=== PATIENT | male | born 1950 | race Caucasian/White ===

== ENCOUNTER 2017-11-29 10:59 | Observation (INO) | payer MEDICARE, OTHER, SELFPAY ==
[2017-11-29] VITALS (14 sets, daily range): BP systolic 125–180; BP diastolic 59–83; PULSE 56–89; RESP 14–16; TEMP 36.4–37.1; O2SAT 94–97; BMI 33.3; BMI 32.8
--- NOTE | 2017-11-29 11:24 | EKG12_ITS ---
Test Reason : CP Blood Pressure : / mmHG Vent. Rate : 075 BPM Atrial Rate : 075 BPM P-R Int : 166 ms QRS Dur : 128 ms QT Int : 382 ms P-R-T Axes : 033 -37 108 degrees QTc Int : 426 ms Normal sinus rhythm Left axis deviation Left ventricular hypertrophy with QRS widening and repolarization abnormality Abnormal ECG Confirmed by KRISTIE ALVAREZ ([id number]), design editor LIZBETH MAX ([id number]) on 12/04/2017 10:15:55 AM Referred By: Joselo Sierra Confirmed By:KRISTIE ALVAREZ
--- NOTE | 2017-11-29 11:24 | RAD_ITS ---
STUDY: X-RAY CHEST REASON FOR EXAM: Male, 67 years old. Chest pain. TECHNIQUE: Single AP portable view of the chest. COMPARISON: None. FINDINGS: The lungs are clear and expanded. Scattered calcified granulomas. There is no demonstrated pleural abnormality. There is moderate cardiac enlargement. Normal mediastinum and dafne. Normal visualized pulmonary arteries. There is atherosclerotic tortuosity of the aortic arch and descending thoracic aorta. Normal visualized thoracic spine. Normal visualized ribs, clavicles, and shoulders. There is no demonstrated abnormality of the visualized soft tissue structures of the upper abdomen. RAD/Chest 1 View (Portable) IMPRESSION: Cardiomegaly. Electronically Signed: Krishna Taylor MD at 12:02 EST Tel [phone], Service support ,
[2017-11-29] MEDS: Aspirin 81 MG TAB.CHEW 324 MG PO (11:39)
[2017-11-29] MEDS: 0.9% Normal Saline 1,000 ML 150 ML IV (11:42)
[2017-11-29 11:50] LABS: Absolute Neutrophil Count 3.6 X10^3/uL (2.0-7.7); Basophil# 0.04 X10^3/uL; Basophil% 0.7 % (0-1); Eosinophil# 0.21 X10^3/uL; Eosinophils% 3.5 % (0-5); Hematocrit 45.9 % (40-54); Hemoglobin 15.7 g/dl (13.0-16.5); Lymphocyte % 26.4 % (19-41); Mean Corp Hgb Conc 34.2 g/gl (32-36); Mean Corpuscular Hgb 33.7 pg (27.0-32.0); Mean Corpuscular Volume 98.5 fL (80-94); Mean Platelet Vol. 9.7 fl (6.2-12.0); Monocyte# 0.62 X10^3/uL; Monocyte% 10.2 % (0-10); Neutrophil # 3.57 X10^3/uL (2.7-7.7); POSITIVE COUNT NO; POSITIVE DIFFERENTIAL NO; POSITIVE MORPHOLOGY NO; Platelet Count 237 K/mm3 (150-450); RBC Distribution Width CV 12.9 % (11.6-14.6); RBC Distribution Width SD 45.8 fl (35.1-43.9); Red Blood Count 4.66 M/mm3 (4.6-6.2); White Blood Count 6.1 K/mm3 (4.4-11.0)
[2017-11-29 12:03] LABS: Anion Gap 9 (5-15); BUN 25 mg/dL (7-18); BUN/Creat Ratio 18.7 RATIO (10-20); Calcium,Total 9.2 mg/dL (8.5-10.1); Chloride 110 mmol/L (98-107); Creatinine, Serum 1.34 mg/dL (0.70-1.30); EST Glomerular Filtration Rate 57 mL/min (>60); Est Glom Filt Rate - Afr Amer 68 mL/min (>60); Glucose 181 mg/dL (70-110); Potassium 4.3 mmol/L (3.5-5.1); Sodium Level 143 mmol/L (136-145)
[2017-11-29] MEDS: Nitroglycerin Oint 1 INCH PACKET TRANSDERM. (12:03)
--- NOTE | 2017-11-29 13:48 | ED.DCSUM_ITS ---
- ER Visit Summary Date of Service: 11/29/17 Chief Complaint: [S pain] History of Present Illness: The patient is a 67 M [presents the emergency department chief complaint of chest pain that started around 8 AM. Patient states he was at work sitting when the discomfort started that he describes as a pressure in the retrosternal area. Patient feels mildly short of breath. He denies any radiation of the pain. He denies any nausea or vomiting. Patient states he has had similar pains off and on in the past but is not sought medical care for it. Patient denies recent travel or surgery. He denies any history of PE or DVT.] Physical Examination: [HEENT-PERRLA, EOMI. Cranial nerves II through XII grossly intact. TMs clear. Mucous membranes moist. No adenopathy. Cardiovascular-regular rate and rhythm without murmur or ectopy Lungs-clear to auscultation, chest wall stable without crepitus or subcu emphysema Abdomen-normoactive bowel sounds, soft, nontender, no rebound or rigidity, no peritoneal signs. Extremities-intact ?4, normal range of motion, normal pulses, atraumatic] Test Results: [EKG obtained on arrival showed a sinus rhythm with a ventricular rate of 75 bpm with some LVH. CBC with differential is normal. Chemistries unremarkable. BUN was 25 and creatinine 1.34. Troponin was less than 0.02. Chest x-ray showed nothing acute.] Emergency Department Course and Treatment: [Patient received aspirin and then was given sublingual nitro which improved his pain down to about 1 out of 10 and he had an inch of Nitropaste placed to the anterior chest wall.] Treatment Plan: [Admit for further workup and evaluation] Disposition: [Admit] Impression: [Chest pain-rule out acute coronary syndrome] This note was generated with [employer] dictation software. It may contain incorrect words, spelling, and punctuation that were not noted in review of the chart prior to signing ED Disposition - Plan for ED Patient: Chief Complaint: Chest Pain Referrals: Joselo Sierra MD [Primary Care Provider] -
[2017-11-29 15:40] LABS: Magnesium 2.3 mg/dL (1.6-2.6)
--- NOTE | 2017-11-29 15:56 | HP.PCM_ITS ---
Problem List (1) Atypical chest pain Status: Acute (2) Benign hypertension Status: Chronic (3) Type 2 diabetes mellitus Status: Chronic (4) Hyperlipidemia Status: Chronic (5) History of colon cancer Status: Chronic Comment: Follow Dr. Barakat with colonoscopy. In remission. Did not require adjunctive treatment (6) History of kidney stones Status: Chronic History of Present Illness Date of Admission: 11/29/17 Chief Complaint: Chest pain today The patient is a 67 year old M with multiple comorbidities including diabetes mellitus type 2 came to ER with sudden onset of chest pain while he was working at 8 AM. Patient was not doing any exertional work. Chest pain he described was substernal, localized without radiation, associated with mild shortness of breath. He denies nausea, vomiting, near syncope or syncope. His chest pain was relieved when he was given aspirin and sublingual nitro when he came to ER. EKG shows normal sinus rhythm with LAD, wide QRS 128 ms with LVH with repolarization abnormality. His last admission was in September 2012 for chest pain. He had normal pharmacological stress test with EF 56%. H he had 2D echo in June 2017 which shows EF 60%, with diastolic dysfunction mild TR, PA SP 30 mmHg. He also follows Dr. alegre. Past Medical History Past Medical History (Chronic Problems): Chronic Problems Benign hypertension (Chronic) Type 2 diabetes mellitus (Chronic) Hyperlipidemia (Chronic) History of colon cancer (Chronic) Follow Dr. Barakat with colonoscopy. In remission. Did not require adjunctive treatment History of kidney stones (Chronic) Allergies metformin [From Glucophage] Adverse Reaction (Severe, Verified 11/28/17 10:19) Paradoxical High Blood Glucose Home Medications: Ambulatory Orders Medication Instructions Recorded aspirin 325 mg tablet 325 mg PO DAILY 11/28/17 atorvastatin 40 mg tablet 40 mg PO QHS 11/28/17 fenofibrate 160 mg tablet 160 mg PO DAILY 11/28/17 folic acid 400 mcg tablet 400 mcg PO DAILY 11/28/17 glimepiride 4 mg tablet 4 mg PO DAILY tab 11/28/17 ramipril 5 mg capsule 5 mg PO DAILY 11/28/17 Calcium Citrate/Vitamin D3 2 each PO DAILY 11/29/17 [Calcium Citrate-Vit D3 Tablet] Dapagliflozin Propanediol [Farxiga] 10 mg PO DAILY 11/29/17 Insulin Detemir [Levemir FlexPen] 70 unit SC QHS 11/29/17 Nabumetone [Relafen] 750 mg PO BID 11/29/17 Surgical History: cholecystectomy, colectomy, cystoscopy Smoking Status: Former smoker - *Family History Maternal History Items: No pertinent history Review of Systems Constitutional: Denies: Chills, Fever, Weight Change HEENT: Denies: Head Aches, Sinus Congestion, Sinus Drainage Cardiovascular: Reports: - - Denies claudication. Denies: Chest Pain, Claudication, Palpitations Respiratory: Denies: Cough, Shortness of breath at rest, Sputum production Gastrointestinal: Denies: Abdominal Pain, Nausea, Vomiting Genitourinary: Denies: Dysuria Musculoskeletal: Reports: Joint Pain - Complaint of right knee joint for which he had an x-ray yesterday which shows atherosclerotic calcification but no bony/ joint abnormality. Denies: Joint Tenderness Skin: Denies: Rash, Wounds Neurological: Denies: Numbness, Tingling, Focal weakness Psychiatric: Denies: Anxiety, Depression, Homicidal Ideations, Suicidal Ideations Hematologic/ Lymphatic: Denies: Easy Bruising, Easy Bleeding VTE Information - Inpt Only VTE Present on Admission: No VTE Mechan Device Prophylaxis: SCD's VTE Pharm Prophylaxis ordered?: Yes Patient Problems: Active and Suspected Problems Atypical chest pain (Acute) - Physical Exam General: Alert, Oriented x3, Cooperative HEENT: Atraumatic, PERRLA, EOMI, Normocephalic Neck: Supple, No JVD, Negative Carotid Bruits Lungs: Clear to auscultation, No rhonchi, No wheeze, No rales, Diminished Cardiovascular: Regular rate, Regular Rhythm, Normal S1, Normal S2, No murmurs Abdomen: Bowel Sounds Present, Soft, Non Tender, Non-Distended Extremities: No edema, Capillary Refill Less than 3 Seconds Skin: No rashes, No breakdown Musculoskeletal: Tenderness - Mild right knee tenderness Neurological: Cranial nerves II-XII grossly intact Psych/Mental Status: Normal Affect, Appropriate Vital Signs Temp Pulse Resp BP Pulse Ox 97.6 F L 64 16 134/80 H 95 11/29/17 11:01 11/29/17 15:21 11/29/17 14:37 11/29/17 14:37 11/29/17 14:37 Oxygen Delivery Method Room Air Weight: 209 lb 3.2 oz Body Mass Index (BMI) 32.8 Assessment/Plan Active and Suspected Problems Atypical chest pain (Acute) The patient is a 67 year old M with multiple comorbidities including diabetes mellitus type 2 came to ER with sudden onset of chest pain while he was working at 8 AM. Patient was not doing any exertional work. Chest pain he described was substernal, localized without radiation, associated with mild shortness of breath. He denies nausea, vomiting, near syncope or syncope. His chest pain was relieved when he was given aspirin and sublingual nitro when he came to ER. EKG shows normal sinus rhythm with LAD, wide QRS 128 ms with LVH with repolarization abnormality. His last admission was in September 2012 for chest pain. He had normal pharmacological stress test with EF 56%. H he had 2D echo in June 2017 which shows EF 60%, with diastolic dysfunction mild TR, PA SP 30 mmHg. He also follows Dr. alegre. 1. Atypical chest pain, localized possible unstable angina: Patient is being admitted on the cardiac floor. On ACS protocol with serial cardiac enzymes. Lexiscan stress test for tomorrow morning. On aspirin, nitro sublingual as needed, beta-jaz and statin. Fasting lipid profile tomorrow a.m. 2. Right knee pain with atherosclerotic calcification on knee x-ray of November 28, 2017: Arterial RVR study ordered. Patient denies claudication symptoms. We will incidental finding. I think he might have right knee pain due to ligament strain/meniscus lesion. Denies recent knee injury. . Diabetes mellitus type 2: Patient is on Levemir 70 units subcu at bedtime daily. Accu-Chek before meals and at bedtime and cover with NovoLog sliding scale. Continue home dose of Levemir. A1c tomorrow a.m. 4. Colon cancer status post resection in remission: Patient did not require any adjuvant treatment. He follows Dr. Barakat with regular colonoscopy next. 5. hypertension: Blood pressure is slightly elevated 145/73. On Enalapril 20 mg daily. Monitor BP and titrate accordingly. Other chronic comorbidities include history of kidney stone, dyslipidemia: Home medication reconciliation done. DVT prophylaxis: On Lovenox 40 mg subcu daily and bilateral SCDs. Code Visit OBSV E&M: 57123 Initial observation care L3
[2017-11-29 16:06] LABS: Bedside Glucose 71 mg/dL (70-110)
[2017-11-29 16:33] LABS: BNP,B-Type NATRIURETIC PEPTIDE 27.3 pg/mL (0-100)
[2017-11-29] MEDS: Enoxaparin 40 MG/0.4 ML Syringe SC (17:24)
[2017-11-29] MEDS: Acetaminophen 325 MG Tablet 650 MG PO (21:42)
[2017-11-29] MEDS: Metoprolol Tartrate 25 MG Tablet 12.5 MG PO (21:42)
[2017-11-29] MEDS: Atorvastatin Calcium 40 MG Tablet PO (21:42)
[2017-11-29 22:15] LABS: Bedside Glucose 136 mg/dL (70-110)
[2017-11-30] VITALS (8 sets, daily range): BP systolic 103–149; BP diastolic 65–75; PULSE 60–81; RESP 16; TEMP 36.6–37.1; O2SAT 97–99
[2017-11-30] MEDS: HYDROcodone Bitartrate/Apap 5/325 Tablet PO (03:04)
[2017-11-30 05:46] LABS: Absolute Lymphocyte Count 1.55 X10^3/ul (0.83-4.51); Absolute Neutrophil Count 3.3 X10^3/uL (2.0-7.7); Basophil# 0.02 X10^3/uL; Basophil% 0.4 % (0-1); Eosinophil# 0.19 X10^3/uL; Eosinophils% 3.3 % (0-5); Hematocrit 45.1 % (40-54); Hemoglobin 14.9 g/dl (13.0-16.5); Lymphocyte # 1.55 X10^3/ul (4.0); Lymphocyte % 27.1 % (19-41); Mean Corpuscular Hgb 33.2 pg (27.0-32.0); Mean Corpuscular Volume 100.4 fL (80-94); Mean Platelet Vol. 9.7 fl (6.2-12.0); Monocyte# 0.68 X10^3/uL; Monocyte% 11.9 % (0-10); Neutrophil # 3.26 X10^3/uL (2.7-7.7); Neutrophil % 57.1 % (47-70); Platelet Count 232 K/mm3 (150-450); RBC Distribution Width CV 13.2 % (11.6-14.6); RBC Distribution Width SD 48.3 fl (35.1-43.9); Red Blood Count 4.49 M/mm3 (4.6-6.2); White Blood Count 5.7 K/mm3 (4.4-11.0)
--- NOTE | 2017-11-30 05:55 | EKG12_ITS ---
Test Reason : MORNING EKG Blood Pressure : / mmHG Vent. Rate : 059 BPM Atrial Rate : 059 BPM P-R Int : 166 ms QRS Dur : 126 ms QT Int : 422 ms P-R-T Axes : 035 -31 -58 degrees QTc Int : 417 ms Sinus bradycardia with sinus arrhythmia Left axis deviation Left ventricular hypertrophy with QRS widening T wave abnormality, consider inferolateral ischemia Abnormal ECG When compared with ECG of 29-NOV-2017 11:05, MANUAL COMPARISON REQUIRED, DATA IS UNCONFIRMED Confirmed by KRISTIE ALVAREZ ([id number]), science editor LIZBETH MAX ([id number]) on 12/06/2017 11:55:20 AM Referred By: Joselo Sierra Confirmed By:KRISTIE ALVAREZ
[2017-11-30] MEDS: Ramipril 5 MG Capsule PO (05:59)
[2017-11-30] MEDS: Aspirin 325 MG Tablet PO (05:59)
[2017-11-30 06:03] LABS: POSITIVE COUNT NO; POSITIVE DIFFERENTIAL NO; POSITIVE MORPHOLOGY NO
[2017-11-30 06:11] LABS: Anion Gap 9 (5-15); BUN 23 mg/dL (7-18); Calcium,Total 8.5 mg/dL (8.5-10.1); Chloride 108 mmol/L (98-107); Cholesterol 150 mg/dL (200); EST Glomerular Filtration Rate 79 mL/min (>60); Est Glom Filt Rate - Afr Amer 96 mL/min (>60); Estimated Creatinine Clearance 67.94 ml/min; Glucose 149 mg/dL (70-110); High Density Lipoprotein 33 mg/dL; Potassium 4.9 mmol/L (3.5-5.1); Sodium Level 139 mmol/L (136-145); Thyroid Stim Hormone (TSH) 1.57 uIU/mL (0.358-3.74); Triglycerides 231 mg/dL; Very Low Density Lipoprotein 46 mg/dL (5-40)
[2017-11-30 06:11] LABS: Bedside Glucose 158 mg/dL (70-110)
[2017-11-30 06:37] LABS: International Normalized Ratio 1.1
[2017-11-30 07:13] LABS: Hemoglobin A1c 7.4 % (4.2-6.3)
[2017-11-30] MEDS: Folic Acid 1 MG Tablet 0.5 MG PO (08:56)
--- NOTE | 2017-11-30 09:08 | STRESSREP ---
Stress Test Report Pharmacologic myocardial perfusion stress test. 67-year-old man with a history of constant chest pain. Negative troponin. Medications Lipitor Lopressor Altase. Stress protocol: Resting EKG demonstrates normal sinus rhythm with a rate of 61 bpm. Blood pressure is 132/90 mmHg. 0.4 mg of regadenoson was infused per usual protocol followed by rapid intravenous saline flush injection. Continuous EKG monitoring was performed. The maximum heart rate attained was 79 bpm which was 51% of the maximum predicted heart rate. The maximum workload was 1 metabolic equivalent. At rest there were no ST or T-wave changes noted suggest abnormal flow reserve at peak infusion no ST or T-wave changes were noted to suggest abnormal flow reserve. The resting blood pressure is 132/90 with a final blood pressure of 158/72 mmHg. Myocardial perfusion protocol: 14.3 mCi of technetium 99m sestamibi was injected at rest. 0.4 mg of regadenoson was infused per usual protocol. At peak infusion 44.3 mCi of technetium 99m sestamibi was injected. Stress images were obtained. Stress and rest images were reconstructed and compared in the short axis vertical long and horizontal long axis. Gated images were also obtained. Perfusion SPECT analysis: Review of the stress images demonstrate normal uptake of tracer noted in all areas of the myocardium the resting images similarly demonstrate normal uptake of tracer noted in all areas of the myocardium. No previous infarct is noted. Gated SPECT analysis: The gated ejection fraction is noted to be 48%. Conclusion: Normal pharmacologic myocardial perfusion stress test. Preserved ejection fraction.
[2017-11-30] MEDS: Metoprolol Tartrate 25 MG Tablet 12.5 MG PO (10:18)
[2017-11-30] MEDS: Calcium Carb/Vitamin D 1 TABLET Tablet 2 TABLET PO (10:18)
[2017-11-30] MEDS: Fenofibrate 145 MG Tablet PO (10:18)
--- NOTE | 2017-11-30 11:28 | PCM.DC ---
- Discharge Diagnoses Current Active Problems: Current Active and Chronic Problems Atypical chest pain (Acute) Reason(s) for Visit for Discharge Instructions: Chest pain You will use the following diet at home:: Calorie/Carbohydrate Controlled (specify 1200, 1400, etc), Cardiac Your food should be the consistency of: Regular Your liquids should be the consistency of: Regular/Thin Discharge Activity: Return to Normal Activity Allergies/Adverse Reactions: Allergies metformin [From Glucophage] Adverse Reaction (Severe, Verified 11/28/17 10:19) Paradoxical High Blood Glucose Medications to take at Discharge aspirin 325 mg tablet 325 mg PO DAILY 11/28/17 atorvastatin 40 mg tablet 40 mg PO QHS 11/28/17 folic acid 400 mcg tablet 400 mcg PO DAILY 11/28/17 glimepiride 4 mg tablet 4 mg PO DAILY tab 11/28/17 ramipril 5 mg capsule 5 mg PO DAILY 11/28/17 Calcium Citrate/Vitamin D3 [Calcium Citrate-Vit D3 Tablet] 2 each PO DAILY 11/29/17 Dapagliflozin Propanediol [Farxiga] 10 mg PO DAILY 11/29/17 Insulin Detemir [Levemir FlexPen] 70 unit SC QHS 11/29/17 Nabumetone [Relafen] 750 mg PO BID 11/29/17 Primary Care Physician: Joselo Sierra MD [Primary Care Provider] - Please follow up with your Primary Care Physician in: within 2 weeks Proposed Discharge Date: 11/30/17
[2017-11-30 11:31] LABS: Bedside Glucose 210 mg/dL (70-110)
--- NOTE | 2017-11-30 15:31 | PCM.DC.SUM ---
Discharge Date and Diagnosis Date of Admission: 11/29/17 Date of Discharge: 11/30/17 - Primary Discharge Diagnosis Chest pain - musculoskeletal HTN T2DM HLD Hx Colon cancer - Secondary Discharge Diagnosis Chronic Problems Benign hypertension (Chronic) Type 2 diabetes mellitus (Chronic) Hyperlipidemia (Chronic) History of colon cancer (Chronic) Follow Dr. Barakat with colonoscopy. In remission. Did not require adjunctive treatment History of kidney stones (Chronic) Hospital Course and Treatment Imaging Results: RAD/Chest 1 View (Portable) IMPRESSION: Cardiomegaly. Operations: None Procedures: Stress test Summary of Care Provided: Physical exam on day of discharge: General: Resting comfortably NAD Psych: A/Ox3 normal affect HEENT: PEARRLA AT NC Neck: Supple NT CV: RRR 3/6 systolic murmur best heard over LSB heard across chest. Resp: CTA Abd: [id number] Soft NT no guarding or rigidity Ext: DP2+= no edema Skin: W/D normal turgor Lymph/Heme: No active bleeding or adenopathy Neuro: CN2-12 intact Hospital course: The patient is a 67 year old M who presented to the ER with chest pain that started the day of presentation described as substernal, with no radiation and some SOB. He stated the pain started spontaneously, although he did note that he was lifting heavy boxes up his basement steps the night prior. He had a negative EKG and negative troponin. He was admitted to telemetry. Chest pain spontaneously resolved overnight. He underwent stress test the following mornign, repeat enzymes, repeat EKG, and was maintained on tele. There were no abnormalities found. His chest pain was felt to be musculoskeletal. He was discharged home in stable condition to follow up with his PCP in 1-2 weeks. This patient was seen by Shady Rojas PA-C under the supervision of Doctor Vazquez. [] Discharge Diet: Low fat/ Low Cholesterol, 4000 mg Sodium Diet Discharge Activity: Return to Normal Activity Home Medications: Medications to take at Discharge aspirin 325 mg tablet 325 mg PO DAILY 11/28/17 atorvastatin 40 mg tablet 40 mg PO QHS 11/28/17 folic acid 400 mcg tablet 400 mcg PO DAILY 11/28/17 glimepiride 4 mg tablet 4 mg PO DAILY tab 11/28/17 ramipril 5 mg capsule 5 mg PO DAILY 11/28/17 Calcium Citrate/Vitamin D3 [Calcium Citrate-Vit D3 Tablet] 2 each PO DAILY 11/29/17 Dapagliflozin Propanediol [Farxiga] 10 mg PO DAILY 11/29/17 Insulin Detemir [Levemir FlexPen] 70 unit SC QHS 11/29/17 Nabumetone [Relafen] 750 mg PO BID 11/29/17 Primary Care Physician: Joselo Sierra MD [Primary Care Provider] - Please follow up with your Primary Care Physician in: within 2 weeks Please Follow Up With: Joselo Sierra MD Disposition: Home Minutes spent on discharge:: 35 Patient Condition:: Stable Meaningful Use Info Meaningful Use Diagnoses (Choose all that apply): None applicable
--- NOTE | 2017-11-30 15:41 | DS.PCM_ITS ---
Discharge Date and Diagnosis Date of Admission: 11/29/17 Date of Discharge: 11/30/17 - Primary Discharge Diagnosis Chest pain - musculoskeletal HTN T2DM HLD Hx Colon cancer - Secondary Discharge Diagnosis Chronic Problems Benign hypertension (Chronic) Type 2 diabetes mellitus (Chronic) Hyperlipidemia (Chronic) History of colon cancer (Chronic) Follow Dr. Barakat with colonoscopy. In remission. Did not require adjunctive treatment History of kidney stones (Chronic) Hospital Course and Treatment Imaging Results: RAD/Chest 1 View (Portable) IMPRESSION: Cardiomegaly. Operations: None Procedures: Stress test Summary of Care Provided: Physical exam on day of discharge: General: Resting comfortably NAD Psych: A/Ox3 normal affect HEENT: PEARRLA AT NC Neck: Supple NT CV: RRR 3/6 systolic murmur best heard over LSB heard across chest. Resp: CTA Abd: [id number] Soft NT no guarding or rigidity Ext: DP2+= no edema Skin: W/D normal turgor Lymph/Heme: No active bleeding or adenopathy Neuro: CN2-12 intact Hospital course: The patient is a 67 year old M who presented to the ER with chest pain that started the day of presentation described as substernal, with no radiation and some SOB. He stated the pain started spontaneously, although he did note that he was lifting heavy boxes up his basement steps the night prior. He had a negative EKG and negative troponin. He was admitted to telemetry. Chest pain spontaneously resolved overnight. He underwent stress test the following mornign , repeat enzymes, repeat EKG, and was maintained on tele. There were no abnormalities found. His chest pain was felt to be musculoskeletal. He was discharged home in stable condition to follow up with his PCP in 1-2 weeks. This patient was seen by Shady Rojas PA-C under the supervision of Doctor Vazquez. [] Discharge Diet: Low fat/ Low Cholesterol, 4000 mg Sodium Diet Discharge Activity: Return to Normal Activity Home Medications: Medications to take at Discharge aspirin 325 mg tablet 325 mg PO DAILY 11/28/17 atorvastatin 40 mg tablet 40 mg PO QHS 11/28/17 folic acid 400 mcg tablet 400 mcg PO DAILY 11/28/17 glimepiride 4 mg tablet 4 mg PO DAILY tab 11/28/17 ramipril 5 mg capsule 5 mg PO DAILY 11/28/17 Calcium Citrate/Vitamin D3 [Calcium Citrate-Vit D3 Tablet] 2 each PO DAILY 11/29 Dapagliflozin Propanediol [Farxiga] 10 mg PO DAILY 11/29/17 Insulin Detemir [Levemir FlexPen] 70 unit SC QHS 11/29/17 Nabumetone [Relafen] 750 mg PO BID 11/29/17 Primary Care Physician: Joselo Sierra MD [Primary Care Provider] - Please follow up with your Primary Care Physician in: within 2 weeks Please Follow Up With: Joselo Sierra MD Disposition: Home Minutes spent on discharge:: 35 Patient Condition:: Stable Meaningful Use Info Meaningful Use Diagnoses (Choose all that apply): None applicable
== END 2017-11-30 12:50 | disposition home or self-care (01) ==
LOC: ED 14:00 → PCU 14:42
PROVIDERS: Admitting Provider Internal Medicine; Emergency Provider Emergency Medicine; Family Provider Family Medicine; PCP Family Medicine; Visit Provider Internal Medicine
DX: R07.89 Other chest pain (principal); R06.02 Shortness of breath; I10 Essential (primary) hypertension; E78.5 Hyperlipidemia, unspecified; M25.561 Pain in right knee; E11.9 Type 2 diabetes mellitus without complications; Z87.442 Personal history of urinary calculi; Z85.038 Personal history of other malignant neoplasm of large intestine; Z79.899 Other long term (current) drug therapy; Z79.82 Long term (current) use of aspirin; Z87.891 Personal history of nicotine dependence; Z85.828 Personal history of other malignant neoplasm of skin; Z79.4 Long term (current) use of insulin
CPT/HCPCS: 36415; 71045; 78452; 80048; 80061; 82962; 83036; 83735; 83880; 84443; 84484; 85025; 85610; 85730; 93005; 93017; 96360; 96361; 96372; 99218; 99284; A9500; J7030; A4216; G0378; J2785

== ENCOUNTER → 2018-03-05 16:42 | Outpatient (CLI) | payer MEDICARE, OTHER, SELFPAY ==
--- NOTE | 2018-03-05 16:54 | VDLE_ITS ---
Reason For Study: swelling RIGHT GSV is normal. CFV is compressible, spontaneous, phasic, competent and demonstrates normal augmentation. FV is compressible, spontaneous, phasic, competent and demonstrates normal augmentation. POP V is compressible, spontaneous, phasic, competent and demonstrates normal augmentation. T/P Trunk is compressible. PTV is compressible. RT PerV is compressible. Procedure Exam performed in department. The exam was diagnostic. Prelim Faxed to [facility]. Interpretation Summary Deep veins of the right lower extremity are patent and compressible segmentally. There is no evidence of right lower extremity deep vein thrombosis. Valvular competence appears intact within the proximal deep venous system on the right . The right greater saphenous vein appears patent and compressible segmentally. Ordering Physician: Viktor Guzman Performed By: Ab Peralta RVT
== END ==
PROVIDERS: Family Provider Family Medicine; PCP Family Medicine; Visit Provider Orthopaedic Surgery
DX: M79.89 Other specified soft tissue disorders (principal); Z47.1 Aftercare following joint replacement surgery
CPT/HCPCS: 93971

== ENCOUNTER 2018-05-23 10:30 | Outpatient (RCR) | payer MEDICARE, OTHER, SELFPAY ==
--- NOTE | 2018-02-07 18:51 | HP.PTEVAL_ITS ---
Patient's Visit Information BETH VELEZ is a 68 year old M referred to Physical Therapy by MD JAYNE Castro with a diagnosis of R TKA. Date of Evaluation: 02/07/18 Physical Therapist: Tono Spain PT, - Visit Plan Frequency: 2-3x /Week Duration: 4-6 Weeks Plan: R knee PROM/mobs, stretching and strengthening, balance/proprio, nustep, and HEP - Subjective Subjective: DOS: 01/25/18. Pt reports 3 mos of pain prior to the surgery. R TKA. Pt reports he has been in severe pain since the DOS. Pt notes he had a couple visits from home [employer], but notes they company was very inconsistant in providing their surgery. Pt reports he just saw the Dr yesterday and the doc was pleased with his progress. No T or N in R LE. Pt reports he can only sleep one hour per day secondary to pain. Pt also notes he has stairs in his house that he cant negotiate at this time. - Pain R knee Pain Intensity (Out of 10): 7 Pain Intensity Range: 10 - Objective Neuro: B LE sensation is WNL to light touch. Observation: Incision healing well. No signs of infection. ROM: R knee flex= 80 degrees, ext= -15. MMT: R knee 3/5, L knee is 5/5 throughout. Girth at joint line: R knee 38 cm, L knee 32 cm - Goals Goal 1:: Decrease R knee pain x 50% to aid with sleep Goal Time Frame: 4-6 Weeks Goal 2:: Increase R knee strength x 1 grade yto aid with stair negotiation Goal Time Frame: 4-6 Weeks Goal 3:: Increase R knee ROM x 40 degrees to aid with restoring a more normal gait pattern Goal Time Frame: 4-6 Weeks Goal 4:: I with HEP Goal Time Frame: 4-6 Weeks - Rehabilitation Potential Physical Therapy Diagnosis: R knee pain, swelling, and limited ROM secondary to R TKA Rehabilitation Potential: Good - Anticipated Interventions Patient/Client Instruction: Educate patient on: Condition, Plan of Care For the Purpose of:: To improve self management Therapeutic Exercise to Include: Strength training, Endurance training, Balance training, Flexibilty training, Passive ROM, Active ROM For the Purpose of:: To decrease pain, To increase ROM, To improve muscle performance and motor function Cryotherapy (ice pack, ice massage): Yes For the Purpose of:: To decrease pain Thank you for the opportunity to evaluate your patient. For Medicare and Medicare HMO plans, please review the plan of care and approve it. It will need to be FAXED BACK to us at [phone] for Medicare purposes. Please let me know if there are questions or concerns regarding this plan of care. Physician Signature: Date:
--- NOTE | 2018-03-14 16:41 | HP.PTREVAL_ITS ---
Viktor Guzman MD, It has been my pleasure to treat BETH VELEZ over the last 15 visits for R TKA. Please see the progress note below for an update on the physical therapy plan of care! Subjective: Pt reports he still has pain, but it is much better Objective/Function: R knee ROM: 0-10-94 degrees. R knee MMT: Flex and ext are both 4-/5 and painful. Pt is progressing with a HEP Plan Plan: R knee PROM/mobs, stretching and strengthening, balance/proprio, nustep, and HEP Goals Goal 1:: Decrease R knee pain x 50% to aid with sleep Goal Time Frame: 4-6 Weeks Goal Progress: Goal Met Goal 2:: Increase R knee strength x 1 grade yto aid with stair negotiation Goal Time Frame: 4-6 Weeks Goal Progress: Goal Met Goal 3:: Increase R knee ROM x 40 degrees to aid with restoring a more normal gait pattern Goal Time Frame: 4-6 Weeks Goal 4:: I with HEP Goal Time Frame: 4-6 Weeks Goal Progress: Goal Met Anticipated Interventions Patient/Client Instruction: Educate patient on: Condition, Plan of Care For the Purpose of:: To improve self management Therapeutic Exercise to Include: Strength training, Endurance training, Balance training, Flexibilty training, Passive ROM, Active ROM For the Purpose of:: To decrease pain, To increase ROM, To improve muscle performance and motor function Cryotherapy (ice pack, ice massage): Yes For the Purpose of:: To decrease pain Please do not hesitate to contact me at [phone] by phone or Fax: if you have questions or concerns regarding this new plan of care! Sincerely, Tono Spain, PT,
--- NOTE | 2018-03-14 16:43 | HP.PTREVAL_ITS ---
Viktor Guzman MD, It has been my pleasure to treat BETH VELEZ over the last 15 visits for R TKA. Please see the progress note below for an update on the physical therapy plan of care! Subjective: Pt reports he still has pain, but it is much better Objective/Function: R knee ROM: 0-10-94 degrees. R knee MMT: Flex and ext are both 4-/5 and painful. Pt is progressing with a HEP Plan Plan: R knee PROM/mobs, stretching and strengthening, balance/proprio, nustep, and HEP Goals Goal 1:: Decrease R knee pain x 50% to aid with sleep Goal Time Frame: 4-6 Weeks Goal Progress: Goal Met Goal 2:: Increase R knee strength x 1 grade yto aid with stair negotiation Goal Time Frame: 4-6 Weeks Goal Progress: Goal Met Goal 3:: Increase R knee ROM x 40 degrees to aid with restoring a more normal gait pattern Goal Time Frame: 4-6 Weeks Goal 4:: I with HEP Goal Time Frame: 4-6 Weeks Goal Progress: Goal Met Anticipated Interventions Patient/Client Instruction: Educate patient on: Condition, Plan of Care For the Purpose of:: To improve self management Therapeutic Exercise to Include: Strength training, Endurance training, Balance training, Flexibilty training, Passive ROM, Active ROM For the Purpose of:: To decrease pain, To increase ROM, To improve muscle performance and motor function Cryotherapy (ice pack, ice massage): Yes For the Purpose of:: To decrease pain Please do not hesitate to contact me at [phone] by phone or Fax: if you have questions or concerns regarding this new plan of care! Sincerely, Tono Spain, PT,
--- NOTE | 2018-04-17 07:47 | HP.PTREVAL_ITS ---
Viktor Guzman MD, It has been my pleasure to treat BETH VELEZ over the last 25 visits for R TKA. Please see the progress note below for an update on the physical therapy plan of care! Subjective: Pt reports his knee hurts all the time Objective/Function: R knee ROM: 0-18-83 degrees. R knee MMT: flex and ext 4/5. Pt is progressing well with strength, but lacks ROM Plan Plan: Focus on ROM activity Goals Goal 1:: Decrease R knee pain x 50% to aid with sleep Goal Time Frame: 4-6 Weeks Goal Progress: Goal Met Goal 2:: Increase R knee strength x 1 grade yto aid with stair negotiation Goal Time Frame: 4-6 Weeks Goal Progress: Goal Met Goal 3:: Increase R knee ROM x 40 degrees to aid with restoring a more normal gait pattern Goal Time Frame: 4-6 Weeks Goal 4:: I with HEP Goal Time Frame: 4-6 Weeks Goal Progress: Goal Met Anticipated Interventions Patient/Client Instruction: Educate patient on: Condition, Plan of Care For the Purpose of:: To improve self management Therapeutic Exercise to Include: Strength training, Endurance training, Balance training, Flexibilty training, Passive ROM, Active ROM For the Purpose of:: To decrease pain, To increase ROM, To improve muscle performance and motor function Cryotherapy (ice pack, ice massage): Yes For the Purpose of:: To decrease pain Please do not hesitate to contact me at [phone] by phone or Fax: if you have questions or concerns regarding this new plan of care! Sincerely, Tono Spain, PT,
--- NOTE | 2018-05-23 10:59 | HP.PTDCSUM ---
HP - PT D/C Summary It has been my pleasure to treat BETH VELEZ under orders from Viktor Guzman MD, for the diagnosis of R TKA for a total of 35 visit(s). Discharge Date: Please see the following information for a summary of their discharge status. - Subjective Subjective: Pain is still pretty high - Pain R knee Pain Intensity (Out of 10): 4 - Overall Improvement % Improvement: 65 - Objective Objective/Function: R knee pain 4/10. R knee ROM: 0-10-105. R knee MMT: 4+/5 throughout. Pt is I with a HEP. Pt is progressing toward Rx goals but would like to continue I at home at this time - Goals Goal 1:: Decrease R knee pain x 50% to aid with sleep Goal Progress: Progressing Goal 2:: Increase R knee strength x 1 grade yto aid with stair negotiation Goal Progress: Goal Met Goal 3:: Increase R knee ROM x 40 degrees to aid with restoring a more normal gait pattern Goal Progress: Progressing Goal 4:: I with HEP Goal Progress: Goal Met - Plan Plan: Discontinue - D/C Information If there are questions or concerns regarding this patient's physical therapy, please feel free to call me at [phone]. Thank you for the referral of this patient. Sincerely, Tono Spain, PT,
== END 2018-05-23 13:48 | disposition home or self-care (01) ==
LOC: PT 10:30
PROVIDERS: Family Provider Family Medicine; PCP Family Medicine; Visit Provider Orthopaedic Surgery
DX: M17.11 Unilateral primary osteoarthritis, right knee (principal)
CPT/HCPCS: 97110; 97161; 97530; G8978; G8979

== ENCOUNTER → 2018-06-12 08:24 | Outpatient (CLI) | payer MEDICARE, OTHER, SELFPAY ==
[2018-06-12 10:35] LABS: Absolute Lymphocyte Count 1.47 X10^3/ul (0.83-4.51); Absolute Neutrophil Count 2.7 X10^3/uL (2.0-7.7); Basophil# 0.02 X10^3/uL; Basophil% 0.4 % (0-1); Eosinophil# 0.18 X10^3/uL; Eosinophils% 3.8 % (0-5); Hematocrit 44.6 % (40-54); Hemoglobin 14.6 g/dl (13.0-16.5); Lymphocyte # 1.47 X10^3/ul (4.0); Lymphocyte % 31.1 % (19-41); Mean Corp Hgb Conc 32.7 g/gl (32-36); Mean Corpuscular Volume 97.8 fL (80-94); Mean Platelet Vol. 10.2 fl (6.2-12.0); Monocyte# 0.39 X10^3/uL; Monocyte% 8.3 % (0-10); Neutrophil # 2.66 X10^3/uL (2.7-7.7); Neutrophil % 56.4 % (47-70); Platelet Count 221 K/mm3 (150-450); RBC Distribution Width CV 13.4 % (11.6-14.6); RBC Distribution Width SD 47.7 fl (35.1-43.9); Red Blood Count 4.56 M/mm3 (4.6-6.2); White Blood Count 4.7 K/mm3 (4.4-11.0)
[2018-06-12 10:37] LABS: POSITIVE COUNT NO; POSITIVE DIFFERENTIAL NO; POSITIVE MORPHOLOGY NO
[2018-06-12 11:01] LABS: Anion Gap 9 (5-15); BUN 20 mg/dL (7-18); BUN/Creat Ratio 20.4 RATIO (10-20); Chloride 108 mmol/L (98-107); Creatinine, Serum 0.98 mg/dL (0.70-1.30); EST Glomerular Filtration Rate 81 mL/min (>60); Est Glom Filt Rate - Afr Amer 98 mL/min (>60); Glucose 163 mg/dL (74-106); Potassium 4.2 mmol/L (3.5-5.1); Sodium Level 141 mmol/L (136-145); Thyroid Stim Hormone (TSH) 1.59 uIU/mL (0.358-3.74)
[2018-06-12 16:33] LABS: Microalbumin,Random Urine 12.8 mg/L (NO RANGE EST.); Microalbumin:Creatinine Ratio 8.4 mg/g CRE (<30 mg/g CRE)
== END ==
PROVIDERS: Family Provider Family Medicine; PCP Family Medicine; Visit Provider Family Medicine
DX: I10 Essential (primary) hypertension (principal); E11.9 Type 2 diabetes mellitus without complications; E78.5 Hyperlipidemia, unspecified
CPT/HCPCS: 36415; 80048; 82043; 82570; 84443; 85025

== ENCOUNTER → 2018-07-25 08:40 | Outpatient (CLI) | payer MEDICARE, OTHER, SELFPAY ==
--- NOTE | 2018-07-25 08:41 | ECHOD_ITS ---
Reason For Study: Murmur Procedure This was a 2D Doppler, Color Flow transthoracic echocardiogram. Exam performed in department. Left Ventricle Normal LV size. Mild concentric left ventricular hypertrophy. Left ventricular systolic function is normal. The estimated ejection fraction is 60 %. Stage 1 diastolic dysfunction. No regional wall motion abnormalities noted. Right Ventricle Normal RV size. Normal systolic function. Atria Normal left atrium. Normal right atrium. Mitral Valve Normal mitral valve. Mild (1+) eccentric mitral valve insufficiency. Tricuspid Valve Normal tricuspid valve. Mild tricuspid valve insufficiency. Aortic Valve Trisinus/trileaflet aortic valve. Mild focal aortic valve calcification. Peak aortic valve gradient 96 mmHg. Mean aortic valve gradient 55 mmHg. Calculated aortic valve area (continuity equation) is 1.0 cm2. Mild-Moderate (1-2+) eccentric aortic valve insufficiency. Pulmonic Valve Normal pulmonic valve. Great Vessels Normal aortic root. The pulmonary artery is normal size. Normal inferior vena cava. Pericardium/Pleural No pericardial effusion. MMode/2D Measurements & Calculations LVIDd: 4.9 cm IVSd: 1.2 cm LVOT diam: 2.1 cm LVIDs: 3.4 cm LVPWd: 1.3 cm LVOT area: 3.5 cm2 RVDd: 3.3 cm FS: 29.2 % Ao root diam: 3.6 cm LAV(MOD-bp): 56.0 ml EDV(MOD-sp4): 101.0 ml LAV(MOD-bp) Indexed: 27.7 ml/m2 ESV(MOD-sp4): 33.6 ml LAV(MOD-sp2): 54.2 ml EF(MOD-sp4): 66.8 % LAV(MOD-sp4): 46.7 ml SV(MOD-sp4): 67.4 ml LA A4 area: 18.2 cm2 RA A4 area: 12.6 cm2 Doppler Measurements & Calculations MV E max ian: 77.5 cm/sec Lat Peak E' Ian: 9.3 cm/sec Med Peak E' Ian: 5.4 cm/sec MV A max ian: 100.5 cm/sec E/E' lat: 8.3 E/E' med: 14.3 MV E/A: 0.77 Ao V2 max: 490.7 cm/sec AI max ian: 472.5 cm/sec LV V1 max: 129.0 cm/sec Ao max P.3 mmHg AI max P.4 mmHg LV V1 max P.7 mmHg Ao V2 mean: 356.5 cm/sec AI dec slope: 288.1 cm/sec2 LV V1 mean P.0 mmHg Ao mean P.7 mmHg AI P1/2t: 480.4 msec LV V1 mean: 96.2 cm/sec Ao V2 VTI: 102.8 cm LV V1 VTI: 29.0 cm OSEAS(I,D): 0.99 cm2 OSEAS(V,D): 0.92 cm2 SV(LVOT): 101.4 ml PA V2 max: 104.9 cm/sec TR max ian: 196.2 cm/sec TR max P.4 mmHg Interpretation Summary Normal LV size. Mild concentric left ventricular hypertrophy. Left ventricular systolic function is normal. The estimated ejection fraction is 60 %. Stage 1 diastolic dysfunction. Mean aortic valve gradient 55 mmHg. Mild-Moderate (1-2+) eccentric aortic valve insufficiency. Calculated aortic valve area (continuity equation) is 1.0 cm2. Compared to the previous the AV area is worse Ordering Physician: Ryder Contreras Referring Physician: Joselo Sierra Performed By: Daxa Galicia, KARLA, RVT
== END ==
PROVIDERS: Family Provider Family Medicine; PCP Family Medicine; Visit Provider Internal Medicine Cardiovascular Disease
DX: I35.0 Nonrheumatic aortic (valve) stenosis (principal)
CPT/HCPCS: 93306

== ENCOUNTER → 2019-07-18 | Outpatient (CLI) | payer MEDICARE, OTHER, SELFPAY ==
[2019-07-17 15:12] VITALS: BMI 32.2
--- NOTE | 2019-07-18 12:42 | ECHOD_ITS ---
Version 2 Reason For Study: Murmur Procedure This was a 2D Doppler, Color Flow transthoracic echocardiogram. Exam performed in department. Left Ventricle Normal LV size. Moderate concentric left ventricular hypertrophy. Left ventricular systolic function is normal. The estimated ejection fraction is 65 %. Stage 1 diastolic dysfunction. No regional wall motion abnormalities noted. Right Ventricle Normal RV size. Normal systolic function. Atria Normal left atrium. Normal right atrium. Aortic Valve Trisinus/trileaflet aortic valve. Mild focal aortic valve thickening. Peak aortic valve gradient 98 mmHg. Mean aortic valve gradient 49 mmHg. Severe aortic stenosis. Calculated aortic valve area (continuity equation) is 0.73 cm2. Mild (1+) aortic valve insufficiency. Pulmonic Valve Normal pulmonic valve. Great Vessels Mildly dilated aortic root. The pulmonary artery is normal size. Normal inferior vena cava. Pericardium/Pleural No pericardial effusion. MMode/2D Measurements & Calculations LVIDd: 4.8 cm IVSd: 1.5 cm LVOT diam: 2.1 cm LVIDs: 3.2 cm LVPWd: 1.7 cm LVOT area: 3.5 cm2 FS: 33.9 % Ao root diam: 4.0 cm LAV(MOD-bp): 36.8 ml LA dimension: 3.5 cm LA A4 area: 13.8 cm2 LAV(MOD-bp) Indexed: 18.0 ml/m2 LAV(MOD-sp2): 37.8 ml LAV(MOD-sp4): 34.1 ml RA A4 area: 12.0 cm2 Time Measurements MV dec time: 0.26 sec Doppler Measurements & Calculations MV E max ian: 78.9 cm/sec Lat Peak E' Ian: 6.2 cm/sec Med Peak E' Ian: 6.0 cm/sec MV A max ian: 111.7 cm/sec E/E' lat: 12.7 E/E' med: 13.2 MV E/A: 0.71 MV V2 max: 126.8 cm/sec MV P1/2t max ian: 92.9 cm/sec Ao V2 max: 495.2 cm/sec MV max P.4 mmHg MV P1/2t: 57.4 msec Ao max P.1 mmHg MV V2 mean: 69.8 cm/sec Ao V2 mean: 328.8 cm/sec MV mean P.3 mmHg MV dec slope: 473.7 cm/sec2 Ao mean P.7 mmHg MV V2 VTI: 26.9 cm MVA(P1/2t): 3.8 cm2 Ao V2 VTI: 86.8 cm MVA(VTI): 3.0 cm2 OSEAS(I,D): 0.94 cm2 OSEAS(V,D): 0.73 cm2 AI max ian: 426.2 cm/sec LV V1 max: 105.0 cm/sec SV(LVOT): 81.4 ml AI max P.7 mmHg LV V1 max P.4 mmHg LV V1 mean P.2 mmHg AI dec slope: 281.8 cm/sec2 LV V1 mean: 67.7 cm/sec AI P1/2t: 443.0 msec LV V1 VTI: 23.5 cm PA V2 max: 149.3 cm/sec Interpretation Summary Normal LV size. Moderate concentric left ventricular hypertrophy. Left ventricular systolic function is normal. The estimated ejection fraction is 65 %. Stage 1 diastolic dysfunction. Mildly dilated aortic root. Mild (1+) aortic valve insufficiency. Severe aortic stenosis. Calculated aortic valve area (continuity equation) is 0.73 cm2. Ordering Physician: Ryder Contreras Referring Physician: Joselo Sierra Performed By: Nathanael Salazar RCS
--- NOTE | 2019-07-18 12:42 | CDU_ITS ---
Reason For Study: Vertigo Rt. Velocities/BP Lt. Velocities/BP Prox CCA 84/16 cm/sec. Prox CCA 87/19 cm/sec. Mid CCA 82/12 cm/sec. Mid CCA 104/16 cm/sec. Dist CCA 70/17 cm/sec. Dist CCA 59/11 cm/sec. Prox ICA 64/12 cm/sec. Prox ICA 69/18 cm/sec. Mid ICA 39/13 cm/sec. Mid ICA 85/17 cm/sec. Dist ICA 84/25 cm/sec. Dist ICA 114/38 cm/sec. Rt. ICA/CCA = 1.0. Lt. ICA/CCA = 1.1. Prox ECA 74/11 cm/sec. Prox ECA 91/14 cm/sec. Rt. Vert. 39/12 cm/sec. Lt. Vert. 45/11 cm/sec. Right Extracranial There is heterogeneous, smooth atherosclerotic plaque noted in the right common carotid artery. There is intimal thickening but no significant atherosclerotic plaque noted in the right internal carotid artery. There is heterogeneous, smooth atherosclerotic plaque noted in the right external carotid artery. Antegrade flow is noted in the right vertebral artery. Left Extracranial There is heterogeneous, irregular atherosclerotic plaque noted in the left common carotid artery. There is heterogeneous, irregular atherosclerotic plaque noted in the left internal carotid artery. There is heterogeneous, irregular atherosclerotic plaque noted in the left external carotid artery. Antegrade flow is noted in the left vertebral artery. Procedure Carotid Duplex 18044. Exam performed in department. Interpretation Summary Minimal plague at the proximal right internal carotid <50% stenosis right internal carotid <50% stenosis right external carotid Calcific plague with shadowing left distal common carotid, proximal left internal and external carotids <50% stenosis left internal carotid <50% stenosis left external carotid Patent and antegrade vertebrals bilaterally with <50% stenosis. Ordering Physician: Ryder Contreras Referring Physician: Joselo Sierra Performed By: Daxa Gailcia RDCS, RVT
== END | disposition home or self-care (01) ==
LOC: CVS 12:40
PROVIDERS: Family Provider Family Medicine; PCP Family Medicine; Referring Provider Internal Medicine Cardiovascular Disease; Visit Provider Internal Medicine Cardiovascular Disease
DX: R09.89 Other specified symptoms and signs involving the circulatory and respiratory systems (principal); R42 Dizziness and giddiness; I10 Essential (primary) hypertension; I35.2 Nonrheumatic aortic (valve) stenosis with insufficiency
CPT/HCPCS: 93306; 93880

== ENCOUNTER 2019-07-21 08:50 | Day surgery (SDC) | payer MEDICARE, OTHER, SELFPAY ==
[2019-07-17 12:50] VITALS: BMI 32.2
[2019-07-17 15:12] VITALS: BMI 32.2
--- NOTE | 2019-07-17 15:32 | RAD_ITS ---
STUDY: X-RAY CHEST REASON FOR EXAM: Male, 69 years old. Chest pain TECHNIQUE: PA and lateral chest COMPARISON: 11/29/2017 FINDINGS: The lungs are clear and expanded. There is no demonstrated pleural abnormality. Normal size heart. Normal mediastinum and dafne. Normal visualized pulmonary arteries. Normal visualized aortic arch and descending thoracic aorta. Normal visualized thoracic spine. Normal visualized ribs, clavicles, and shoulders. There is no demonstrated abnormality of the visualized soft tissue structures of the upper abdomen. RAD/Chest PA and Lateral IMPRESSION: Normal x-ray examination of the chest. Electronically Signed: Neal Urban, at 7:58 EDT Tel , Service support ,
[2019-07-17 17:17] LABS: Absolute Lymphocyte Count 2.24 X10^3/uL (0.83-4.51); Absolute Neutrophil Count 3.9 X10^3/uL (2.0-7.7); Basophil# 0.03 X10^3/uL; Basophil% 0.4 % (0-1); Eosinophil# 0.13 X10^3/uL; Eosinophils% 1.8 % (0-5); Hematocrit 50.3 % (40-54); Hemoglobin 17.1 g/dL (13.0-16.5); Lymphocyte # 2.24 X10^3/ul (4.0); Lymphocyte % 31.5 % (19-41); Mean Corpuscular Hgb 33.8 pg (27.0-32.0); Mean Corpuscular Volume 99.4 fL (80-94); Mean Platelet Vol. 10.2 fl (6.2-12.0); Monocyte% 11.2 % (0-10); NRBC Flagged by Analyzer 0 % (0-5); Neutrophil % 54.8 % (47-70); Platelet Count 218 K/mm3 (150-450); RBC Distribution Width CV 12.6 % (11.6-14.6); RBC Distribution Width SD 46.4 fl (35.1-43.9); Red Blood Count 5.06 M/mm3 (4.6-6.2); White Blood Count 7.1 K/mm3 (4.4-11.0)
[2019-07-17 18:04] LABS: AST(SGOT) 29 U/L (15-37); Alanine Aminotransfer ALT/SGPT 44 U/L (16-61); Albumin, Serum 3.7 g/dL (3.2-5.0); Alkaline Phosphatase 155 U/L (45-117); Anion Gap 10 (5-15); BUN 26 mg/dL (7-18); BUN/Creat Ratio 25.5 RATIO (10-20); Bilirubin, Direct 0.08 mg/dL (0.00-0.30); Calcium,Total 9.7 mg/dL (8.5-10.1); Chloride 106 mmol/L (98-107); Cholesterol 186 mg/dL (200); Creatinine, Serum 1.02 mg/dL (0.70-1.30); EST Glomerular Filtration Rate 77 mL/min (>60); Est Glom Filt Rate - Afr Amer 93 mL/min (>60); Globulin 3.9 g/dL (2.2-4.2); Glucose 236 mg/dL (74-106); High Density Lipoprotein 47 mg/dL; Potassium 4.4 mmol/L (3.5-5.1); Protein, Total 7.6 g/dL (6.4-8.2); Sodium Level 140 mmol/L (136-145); Triglycerides 370 mg/dL; Very Low Density Lipoprotein 74 mg/dL (5-40)
--- NOTE | 2019-07-31 09:58 | CL.D_ITS ---
Patient Name: BETH VELEZ Study Date: 07/21/2019 Performing: Ryder Contreras MD Ht: 66.92 inches 170 cm : 1950 Wt: 205.03 lbs 93 kg Age: 69 Gender: male BSA: 2.04 PROCEDURE(S) PERFORMED [id number] ROOT ANGIO WITH HEART CATH CLINICAL PROFILE AND INDICATIONS Indications: Valvular Disease Heart Failure: None Stress/Imaging Stress/Image Study Performed: No CAD Presentations: No Sxs, no angina. CONCLUSIONS Coronary artery disease involving the diagonal vessel and LAD as well as severe aortic stenosis. Mil d aortic regurgitation is also noted. RECOMMENDATIONS Would recommend TAVR plus PCI. Will discuss sequential versus same-day approach. DESCRIPTION OF PROCEDURE The patient arrived to the procedure lab. The risks and benefits of the procedure as well as a full d escription of our services here and current unavailability of surgical backup were fully explained to the patient and/or their significant other prior to the catheterization. The Timeout was completed, verifying the correct patient and procedure. The patient's procedural site was prepped and draped in the usual fashion. Local anesthetic was given subcutaneously to right radial region with Lidocaine 2% . Using a modified Seldinger technique, arterial access was obtained via the right radial artery, a 6 Fr sheath was inserted. Left Coronary Artery selective angiography was performed in multiple views u sing a 5 Fr. 4.0 [place] catheter. Right Coronary Artery selective angiography was then performed in mu ltiple views using a 5 Fr. 4.0 [place] catheter. Ascending (root) aorta selective angiography was then performed in single view. Ascending (root) aorta selective angiography was then performed in single view.The arterial sheath was pulled and a TR Band was applied for hemostasis. 10cc of air CORONARY ANGIOGRAPHY DOMINANCE: Right Dominant LEFT HEART ASSESSMENT LEFT MAIN: Angiographically normal LEFT ANTERIOR DESCENDING ARTERY: DISTAL LAD: 70 % Stenosis DIAGONAL 1: Proximal - 80 % Stenosis CIRCUMFLEX ARTERY: Mild luminal irregularities less than 30% RIGHT CORONARY ARTERY: Mild luminal irregularities VALVE FINDINGS: Aortic Valve Stenosis - severe Aortic Valve Calcification - severe Aortic Valve Insufficiency: Grade 2 AORTIC ROOT: Dilated COMPLICATIONS No Complications PROCEDURE MEDICATIONS Fentanyl 1 mcg IV Fentanyl 50 mcg IV Oxygen: 2 L/min via nasal cannula SUMMARY OF HEMODYNAMIC DATA Time AIR REST ECG 09:28:59 AO 112/69 (88) SA 12:56:48 Signed By Ryder Contreras MD On 07/21/2019 13:27:12 Ryder Contreras MD
== END 2019-07-21 15:25 | disposition home or self-care (01) ==
LOC: CLSP 08:51
PROVIDERS: Family Provider Family Medicine; PCP Family Medicine; Referring Provider Internal Medicine Cardiovascular Disease; Visit Provider Internal Medicine Cardiovascular Disease
DX: I38 Endocarditis, valve unspecified (principal); I25.10 Atherosclerotic heart disease of native coronary artery without angina pectoris; I35.2 Nonrheumatic aortic (valve) stenosis with insufficiency; I35.0 Nonrheumatic aortic (valve) stenosis; E78.00 Pure hypercholesterolemia, unspecified; I10 Essential (primary) hypertension; E11.9 Type 2 diabetes mellitus without complications; E66.9 Obesity, unspecified; Z68.32 Body mass index [BMI] 32.0-32.9, adult; Z79.4 Long term (current) use of insulin; Z79.82 Long term (current) use of aspirin; Z79.899 Other long term (current) drug therapy; Z85.038 Personal history of other malignant neoplasm of large intestine; Z87.891 Personal history of nicotine dependence
CPT/HCPCS: 36415; 71046; 80048; 80061; 80076; 85025; 93454; 93567; 99152; 99153; J7040; Q9967; C1769; C1894

== ENCOUNTER → 2019-09-09 | Outpatient (CLI) | payer MEDICARE, OTHER, SELFPAY ==
[2019-07-17 15:12] VITALS: BMI 32.2
--- NOTE | 2019-09-09 12:16 | CR.ITP_ITS ---
General Information - General Information Admitting Diagnosis: Heart Valve Replacement - Aortic Valve and CABG x 2 vessel s. - Education/Goals Barriers to Learning: Vision Impairment Individual Counseling: Initial Assessment: Abnormal Cholesterol Levels, High Blood Pressure, Overweight/Obesity Cardiac Rehabilitation Goals: 1. Maintain the individual as the primary focus of care. 2. To improve the patient's quality of life. 3. Identification of cardiac risk factors and provide cardiac risk factor management. 4. Enhance the psychosocial status of the patient. 5. Reconditioning enough to allow the patient to resume customary activities. 6. Control symptoms of cardiac disease Scale for measuring improvement of personal goals: Enter appropriate number in Comments. 2 = Unchanged. 3 = Slightly Better. 4 = Moderate Improvement. 5 = Met my Goal Personal Goals: Initial Assessment: Improve management of stress and emotions, Improve energy level, Get back to work, or to resume activities faster, Improve knowledge of cardiac disease, Improve muscle strength and endurance, Improve diet and eating habits (eat healthier), Control risk factors (learn risk factor modification) Exercise - Initial Assessment - Visit Date of Eval: 09/09/19 Session #:: 0 - STARTING 09/15/2019@ 15:15 - Stages of Change Stages of Change:: Action - Physician Prescribed Exercise Modalities: Treadmill, Airdyne, NuStep Frequency (days/week): 3x/week for 12 weeks [36 sessions] Duration (Minutes):: 30-45 Intensity: 60-80% age predicted maximum heart rate reserve METs - Progression: 0.5-1.0 MET, RPE 11-14 WEEK: 3 Target Heart Rate:: 99-129 - Hypertension Do any of the following apply?: Yes, Medication Resting Blood Pressure:: 130/76 - Intervention Home Exercise/Activity Goal:: Sitting Time <3 hrs/day - Education Goals:: Warm-up, RPE SANA Scale, S/S, Safe Exercise, Self-Monitoring - Exercise Program Goals Exercise Program Goals: Aerobic Activity >30 min Nutrition - Initial Assessment - Program Goals Nutrition Program Goals: LDL <70. Total Cholesterol <200. HDL >45. Triglycerides <150. HgbA1C <7%. BMI <25 - Visit Date of Assessment:: 09/09/19 - Stages of Change Stages of Change:: Action - Lipids Total Cholesterol (mg/dL) Goal = less than 200 mg/dL: 186 - 07/17/2019 HDL Cholesterol (mg/dL) Goal = less than 45 mg/dL: 47 LDL Cholesterol (mg/dL) Goal = less than 70 mg/dL: 65 Triglycerides (mg/dL) Goal = less than 150 mg/dL: 370 - Diabetes Diabetes:: Yes Insulin: Yes - levemir 70u Non-Insulin Dependent?: Yes Do you monitor your blood sugar at home?: Yes - Weight Management Height: 5 ft 7 in Weight:: 206 lb Body Fat %:: 32.2 - Intervention Referral to dietitian:: Yes Referral to Diabetic Clinic:: Yes Will attend diet classes:: Yes - Education Gave educational materials for:: Signs & symptoms of hypoglycemia, Signs & symptoms of hyperglycemia, Relate diabetes to coronary artery disease, Healthy eating Tobacco - Initial Assessment - Program Goals Tobacco Program Goals: Complete smoking cessation. Attend education classes. Improve Knowledge Test score - Stage of Change Stages of Change:: Action - Learning Barriers Learning Barriers: Hearing, Vision - Family Support Do you have family support?: Yes - Tobacco Use Tobacco Use: Non-smoker Do you use smokeless tobacco?: No - Intervention Smoking Cessation Referral:: No Individual Education/Counseling:: No Education Schedule Given:: Yes - Education Attended class for:: Treating Heart Disease, How The Heart Works, What it means to have Heart Disease, How Coronary Artery Disease is Diagnosed, Heart Procedures, What Heart Medications Do, Risk Factors & Modifications, Living an Active Life, Nutrition, Emotions & Heart Disease, Stress Management & Relaxation, Sleep Disorders & Heart Disease Psychosocial - Initial Assess - Target Goals Target Goals: Assess presence or absence of depression. Using a valid screening tool, maximizes coping skills. Positive support system - Stages of Change Stages of Change:: Action - Psychosocial Test Tool Used:: HANDS Depression Questionnaire - Intervention PS - Interventions: Yes Attend Stress Management Classes, No Referral to Mental Health, No Referral to [facility] Case Management, No Referral to Physician, No Uses Stress Management Skills - Education Gave educational materials for:: Coping techniques, Signs & symptoms of depression, Stress management, Relaxation techniques - Patient/Program Goal Preventative Medication(s):: Aspirin, ANH inhibitor, Clopidogrel, Beta jaz, Statin/lipid - Assistive Devices Assistive Devices:: None Fall Risk Assessed:: Yes Patient Health Questionnaire Initial Assessment 1. Little interest or pleasure in doing things: More than half the days 2. Feeling down, depressed, or hopeless: More than half the days 3. Trouble falling or staying asleep, or sleeping too much: More than half the days 4. Feeling tired or having little energy: Nearly every day 5. Poor appetite or overeating: Nearly every day 6. Feeling bad about yourself -- or that you are a failure or have let yourself or your family down: More than half the days 7. Trouble concentrating on things, such as reading the newspaper or watching television: Not at all 8. Moving or speaking so slowly that other people could have noticed. Or the opposite - being so fidgety or restless that you have been moving around a lot more than usual: More than half the days 9. Thoughts that you would be better off , or of hurting yourself in some way: Not at all Total Score: 16 ROSARIO-Q SV Test - Statements CAD is a disease of the arteries in the heart: False Examples of risk factors for heart disease: True Angina is chest pain or discomfort: True The benefits of resistance training include: True Eating more meat and dairy products: False Anti-platelet medications such as aspirin are important: True The only effective way to manage stress: False An exercise warm-up slowly increases heart rate: True Prepared, processed foods usually have high sodium: True Depression is common after a heart attack: True The statin medications lower cholesterol: True To control blood pressure, lower the amount of sodium: True If someone gets chest discomfort during walking: False Transfats are partially hydrogenated vegetable oils: False Sleep apnea that is not treated increases the risk: True To control cholesterol, one should become a vegetarian: False Someone knows if he/she is exercising at the right level: False Diabetes cannot be prevented with exercise & health eating: False Stress is a large risk for heart attack: True A diet that can help lower blood pressure is rich in: True - Total Score Total Correct Responses: 17 Self-Efficacy Initial Assessment We would like to know how confident you are in doing certain activities. Please select your confidence level for:: Select your confidence level for the following using the scale 1-10 where 1 is not at all confident and 10 is totally confident. Your score is the average of all 6 responses. Fatigue: How confident are you that you can keep the fatigue caused by your disease from interfering with the things you want to do? Select Number: 8 Physical Discomfort or Pain: How confident are you that you can keep the physical discomfort or pain of your disease from interfering with the things you want to do? Select Number: 8 Emotional Distress: How confident are you that you can keep the emotional distress caused by your disease from interfering with the things you want to do? Select Number: 10 Other Symptoms or Health Problems: How confident are you that you can keep other symptoms or health problems from interfering with the things you want to do? Select Number: 6 Different Tasks and Activities: How confident are you that you can do the different tasks and activities needed to manage your health condition so as to reduce your need to see a doctor? Select Number: 8 Medication: How confident are you that you can do things other than just taking medication to reduce how much your illness affects your everyday life? Select Number: 8 Total Score:: 8 Nutrition Survey - Nutrition Survey Instructions Scoring Instructions: Scoring is as follows: Yes = 1 points. No = 0 point. Patient score that is >/=12 is considered to be at potential nutritional risk and could benefit from a referral to a registered dietitian. - Nutrition Survey Initial Have you lost >10 lbs over the past 2 months without trying?: Yes Are you following a special diet at home for diabetes, low fat, or low salt?: No - SHOULD BE DOING BETTER. Are you interested in meeting with a dietitian for help understanding your diet?: No - hAVE ALREADY BEEN THROUGH DIABETIC EDUCATION AND CLINICIAN. Do you eat less than 3 meals a day?: Yes Do you eat fatty meats (posada, sausage, ribs, etc), fried foods, desserts, large amounts of salad dressings, margarine, butter, or cheese most days?: Yes Do you have food allergies? [Enter types in comment field]: No Do you eat in restaurants more than 3 times a week?: No Do you season food with salt, seasoning salt, or garlic salt?: Yes Do you used canned, boxed, frozen meals, or soups, seasoning packets?: Yes - LIMITED Total Score:: 5
[2019-09-09 12:56] VITALS: BP 130/76
--- NOTE | 2019-09-09 12:56 | CR.HP_ITS ---
CR - History & Physical - General Arrival date:: 09/09/19 Arrival time:: 12:00 Date of Referral:: 08/20/19 Date of CR Evaluation:: 09/09/19 Referring Physician: DR ATKINSON Primary Diagnosis: AORTIC VALVE REPLACED, AND CABG X2 - History of Present Cardiac Event Onset Date: Enter Onset Date of cardiac illnesses in Comment field below Current stable Angina Pectoris:: No Acute Myocardial Infarction within 12 months:: No Coronary Artery Bypass Graft:: Yes - X2 Heart valve replacement or repair:: Yes - AV REPLACE PTCA or coronary stenting:: No Heart or Heart-Lung Transplant:: No Heart Failure EF <35%:: No Type of Symptoms:: NONE - Medications Home Medications: Ambulatory Orders Medication Instructions Recorded aspirin 325 mg tablet 325 mg PO DAILY 11/28/17 atorvastatin 40 mg tablet 40 mg PO QHS 11/28/17 folic acid 400 mcg tablet 400 mcg PO DAILY 11/28/17 Calcium Citrate/Vitamin D3 2 ea PO DAILY 11/29/17 [Calcium Citrate-Vit D3 Tablet] Insulin Detemir [Levemir FlexPen] 50 unit SC DAILY 11/29/17 cholecalciferol (vitamin D3) 2,000 2,000 unit PO DAILY 07/17/19 unit capsule metformin 500 mg tablet 500 mg PO BID 07/17/19 multivitamin capsule 1 cap PO DAILY 07/17/19 Empagliflozin [Jardiance] 12.5 mg PO DAILY 09/09/19 Warfarin [Coumadin ([facility])] 2.5 mg PO DAILY 09/09/19 - Allergies Allergies/Adverse Reactions: Allergies No Known Allergies Allergy (Unverified 07/17/19 14:36) - Sleep Disorder Evaluation Hx of Sleep Apnea: No Do you snore loudly (louder than talking or can be heard through closed doors)?: Yes Do you often feel tired/ fatigued/ sleepy during daytime?: No Has anyone observed you stop breathing during sleep?: No History of Hypertension (for STOP score): No STOP Results: Negative Advanced Directives - Advanced Directives Power of Search Engine Optimization Strategist: Yes - PT/ ENCOURAGED TO BRING COPY IN DNR Order?:: No Past Medical History - Past Medical Illness Medical History: Past Medical History (Last Updated 07/22/19 @ 12:13 by Layne Wang) Atherosclerosis of coronary artery of [place] heart without angina pectoris (Chronic) I25.10 Nonrheumatic aortic (valve) stenosis with insufficiency (Chronic) I35.2 Essential (primary) hypertension (Chronic) I10 Hyperlipidemia (Chronic) E78.5 History of colon cancer (Chronic) Z85.038 History of kidney stones Z87.442 Obesity E66.9 Type 2 diabetes mellitus E11.9 Abnormal electrocardiogram [ECG] [EKG] (Resolved) R94.31 - Past Surgical History Surgical History: Past Surgical History (Last Updated 07/22/19 @ 18:02 by Layne Wang) History of colon resection Z90.49 History of left heart catheterization Onset Date: 07/21/19 Z98.890 History of tonsillectomy Z98.890, Z90.89 Hx of cholecystectomy Z98.890, Z90.49 Surgical History: cholecystectomy, colectomy, cystoscopy - Family History Summary Family History: Family History (Last Reviewed 07/17/19 @ 14:51 by Ryder Atkinson MD) Mother Diabetes CVA (cerebral vascular accident) Social History - Smoking History Smoking Status: Former smoker Years Smokin Packs Smoked per Day: 1 - STATES NOT EVEN ONE PPD - Alcohol Use Alcohol Usage: Yes - 3 CANS BEER/DAY - Substance Abuse Hx Substance Use: No - Occupation Occupation (List type of work in comments):: Retired - Hobbies, Recreation, Social Activities Hobbies: Walking, Other - HUNTING Recreational Activities: I am able to engage in a few activities Social Environment - Status Marital Status: - Current Living Arrangements Living Environment:: Spouse - Children How many children do you have?: 1 Do any of your children live nearby?: Yes - Safety Do you feel safe in your surroundings?: Yes - Assistance Do you need any assistance at home?: NONE Review of Systems - Review of Systems Hints: Right click = Denies ([place]). Left click = Reports ([place]) Review of Present Symptoms: Reports: Wound Healing - WOUND EDGES WELL APPROXIMATED WITHOUT READNESS AND EDEMA, Fatigue - LITTLE POST OP FATIGUE FROM LACK OF EXERCISE, Sleep - Normal. Denies: Shortness of Breath at Rest, Shortness of Breath with Exertion, PVD, Operative Discomfort, Angina, Dizziness/Lightheadedness, Heart Arrhythmia/Irregularities - APPETITE AND SLEEP NORMAL, Appetite - Normal - Pain Is Patient Pain Free?: Yes Risk Factor Assessment - Chief Complaint Chief Complaint: PRESENT AV REPLACENT AND CABG X2 POST OP HERE FOR CR INITIAL EVAL. - Vital Signs Temperature: 98.6 F Respiratory Rate: 16 Pulse Ox: 94 Blood Pressure: 90/60 Nailbeds:: PINK - Pulse Pulse Rate: 75 Pulse Rhythm: Regular - Stress Stress: Recent - 'POST-OP - Blood Cholesterol/Lipids Total Cholesterol (mg/dL) Goal = less than 200 mg/dL: 150 HDL Cholesterol (mg/dL) Goal = less than 40 mg/dL: 47 LDL Cholesterol (mg/dL) Goal = less than 70 mg/dL: 65 Triglycerides (mg/dL) Goal = less than 150 mg/dL: 370 - Diabetes Diabetic History: Type II, Insulin Dependent Nutrition Referral for Diabetes: No - Obesity Height: 5 ft 7 in Weight:: 206 lb Weight in Pounds: 206.0 lbs Body Mass Index (BMI): 32.2 Nutritional Referral for Obesity: No - PT AND DECLINE AT THIS TIME - Physical Inactivity Physical Inactivity: Recreational activity - Risk Stratification Risk Guidelines: Lowest Risk: Risk Factor for Smoking, Risk Factor for Dyslipid emia, Risk Factor for Hypertension, Risk Factor for Depression, Moderate Risk: Risk Factor for Diabetes, Risk Factor for Obesity, Risk Factor for Sedentary Lifestyle - For Smoking Smoking Risk Guidelines: Smoking Low Risk: None or quit greater than 6 months ago. Smoking Moderate Risk: Smoker or quit 6 months or less ago. Smoking High Risk: Smoker - For Dyslipidemia Dyslipidemia Risk Guidelines: Low Risk: Moderate Risk: High Risk: 15-25% fat 25.1-29% fat >/= 30% fat. <7% sat fat 7-9% sat fat >9% sat fat. <150 mg chol 150-299 mg chol >/= 300 mg chol. LDL <100 LDL 100-129 LDL >/= 130. Chol/HDL ratio <5.0 Chol/HDL ratio 5.0-6.0 Chol/HDL ratio >6.0. Triglycerides <100 Triglycerides 100- 149 Triglycerides >/= 150 - For Diabetes Mellitus Diabetes Risk Guidelines: Diabetes Low Risk: HgA1c <6.5% and/or FBG <120. Diabetes Moderate Risk: HgA1c 6.6-7.9% and/or FBG 120-180. Diabetes High Risk: HgA1c >/= 8% and/or FBG >180 - For Obesity/Overweight Obesity/Overweight Risk Guidelines: Obesity Low Risk: BMI <25.0. Obesity Moderate Risk: BMI 25-29.9. Obesity High Risk: BMI >/= 30.0 - For Hypertension Hypertension Risk Guidelines: Hypertension Low Risk: Systolic <120 and Diastolic <80. Hypertension Moderate Risk: Systolic 120-139 and Diastolic 80-89. Hypertension High Risk: Systolic >/= 140 and Diastolic >/= 90 - For Sedentary Lifestyle Sedentary Lifestyle Risk Guidelines: Sedentary Lifestyle Low Risk: >/= 1,500 kcal/week. Sedentary Lifestyle Moderate Risk: 700-1,499 kcal/week. Sedentary Lifestyle High Risk: < 700 kcal/week - For Depression Depression Risk Guidelines: Depression Low Risk: Not clinically depressed. Depression Moderate Risk: Mildly depressed. Depression High Risk: Clinically depressed - Family History Family History: Family History (Last Reviewed 07/17/19 @ 14:51 by Ryder Atkinson MD) Mother Diabetes CVA (cerebral vascular accident) Motivation - Motivation to Participate On a scale of 1 to 10, how prepared are you to commit to attending program?: 10 What do you see as barriers to successfully being able to complete the program?: NONE What do you see as the benefits of succesfully completing the program? In other words, what do you hope to get out of participating in the program?: MORE ENERGY Are there issues you are dealing with that will interfere with completing the program?: NONE Do you have a spouse or signficant other, family or friends who will help support you to complete the program?: SPOUSE
[2019-09-09 13:28] VITALS: BP 90/60; PULSE 75; RESP 16; TEMP 37; O2SAT 94; BMI 32.2
== END | disposition home or self-care (01) ==
LOC: CR 11:50
PROVIDERS: Family Provider Family Medicine; PCP Family Medicine; Referring Provider Internal Medicine Cardiovascular Disease; Visit Provider Internal Medicine Cardiovascular Disease
DX: Z95.2 Presence of prosthetic heart valve (principal); Z95.1 Presence of aortocoronary bypass graft

== ENCOUNTER → 2019-09-12 | Outpatient (CLI) | payer MEDICARE, OTHER, SELFPAY ==
[2019-09-09 13:28] VITALS: BMI 32.2
[2019-09-12 10:57] LABS: Absolute Lymphocyte Count 1.15 X10^3/uL (0.83-4.51); Absolute Neutrophil Count 5.1 X10^3/uL (2.0-7.7); Basophil# 0.06 X10^3/uL; Basophil% 0.8 % (0-1); Eosinophil# 0.38 X10^3/uL; Eosinophils% 5.1 % (0-5); Hematocrit 40.7 % (40-54); Hemoglobin 12.8 g/dL (13.0-16.5); Lymphocyte # 1.15 X10^3/ul (4.0); Lymphocyte % 15.4 % (19-41); Mean Corp Hgb Conc 31.4 g/dL (32-36); Mean Corpuscular Hgb 31.7 pg (27.0-32.0); Mean Corpuscular Volume 100.7 fL (80-94); Mean Platelet Vol. 8.5 fl (6.2-12.0); Monocyte# 0.78 X10^3/uL; Monocyte% 10.4 % (0-10); NRBC Flagged by Analyzer 0 % (0-5); Platelet Count 386 K/mm3 (150-450); RBC Distribution Width CV 13.1 % (11.6-14.6); Red Blood Count 4.04 M/mm3 (4.6-6.2); White Blood Count 7.5 K/mm3 (4.4-11.0)
[2019-09-12 11:12] LABS: Anion Gap 6 (5-15); BUN 20 mg/dL (7-18); BUN/Creat Ratio 21.1 RATIO (10-20); Chloride 102 mmol/L (98-107); Creatinine, Serum 0.95 mg/dL (0.70-1.30); EST Glomerular Filtration Rate 84 mL/min (>60); Est Glom Filt Rate - Afr Amer 101 mL/min (>60); Glucose 236 mg/dL (74-106); Potassium 4.6 mmol/L (3.5-5.1); Sodium Level 138 mmol/L (136-145)
== END | disposition home or self-care (01) ==
LOC: LAB 10:26
PROVIDERS: Family Provider Family Medicine; PCP Family Medicine; Referring Provider Family Medicine; Visit Provider Family Medicine
DX: I10 Essential (primary) hypertension (principal); D64.9 Anemia, unspecified; J90 Pleural effusion, not elsewhere classified
CPT/HCPCS: 36415; 80048; 85025

== ENCOUNTER → 2019-09-22 | Outpatient (CLI) | payer MEDICARE, OTHER, SELFPAY ==
[2019-09-09 13:28] VITALS: BMI 32.2
[2019-09-22 18:18] LABS: International Normalized Ratio 1.8; Prothrombin Time (Protime)PT. 20.3 SECONDS (11.7-14.9)
== END | disposition home or self-care (01) ==
LOC: LAB 16:11
PROVIDERS: Family Provider Family Medicine; PCP Family Medicine; Referring Provider Family Medicine; Visit Provider Family Medicine
DX: I35.0 Nonrheumatic aortic (valve) stenosis (principal)
CPT/HCPCS: 36415; 85610

== ENCOUNTER → 2019-09-29 14:07 | Outpatient (CLI) | payer MEDICARE, OTHER, SELFPAY ==
[2019-09-29 12:03] VITALS: BMI 30.8
--- NOTE | 2019-09-29 14:15 | RAD_ITS ---
STUDY: X-RAY CHEST REASON FOR EXAM: Male, 69 years old. Persistent coughing after surgery. TECHNIQUE: PA and lateral views of the chest. COMPARISON: 07/17/2019. FINDINGS: The lungs are slightly underexpanded with mild left-sided pleural effusion. There is trace amount of right-sided effusion. There is minimal right lower lobe atelectasis. There are multiple areas of linear densities within the left lower lobe and lingular lobe consistent with atelectasis. Heart maintains normal size with midline sternotomy wires and evidence of valve replacement surgery. Normal mediastinum and dafne. Normal visualized pulmonary arteries. There is atherosclerotic calcification of the aortic arch with tortuosity. Normal visualized thoracic spine. There is degenerative osteoarthritis of the bilateral shoulders. There is no demonstrated abnormality of the visualized soft tissue structures of the upper abdomen. RAD/Chest PA and Lateral IMPRESSION: Bilateral atelectasis with mild pleural effusions, left more significant compared to right. Postoperative changes as described above. Electronically Signed: Latricia Blackwell MD at 2:46 EST , Service support ,
[2019-09-29 16:31] LABS: International Normalized Ratio 2.3; Prothrombin Time (Protime)PT. 25.5 SECONDS (11.7-14.9)
== END ==
PROVIDERS: Family Provider Family Medicine; PCP Family Medicine; Referring Provider Internal Medicine Cardiovascular Disease; Visit Provider Internal Medicine Cardiovascular Disease
DX: Z95.1 Presence of aortocoronary bypass graft (principal); Z79.01 Long term (current) use of anticoagulants; I25.10 Atherosclerotic heart disease of native coronary artery without angina pectoris; I35.2 Nonrheumatic aortic (valve) stenosis with insufficiency; I10 Essential (primary) hypertension; E78.5 Hyperlipidemia, unspecified; Z95.2 Presence of prosthetic heart valve
CPT/HCPCS: 36415; 71046; 85610; 93798

== ENCOUNTER 2019-10-01 15:15 | Outpatient (RCR) | payer MEDICARE, OTHER, SELFPAY ==
[2019-07-17 15:12] VITALS: BMI 32.2
[2019-09-09 13:28] VITALS: BMI 32.2
== END 2019-10-04 23:59 ==
LOC: CR 15:15
PROVIDERS: Family Provider Family Medicine; PCP Family Medicine; Referring Provider Internal Medicine Cardiovascular Disease; Visit Provider Internal Medicine Cardiovascular Disease
DX: I25.10 Atherosclerotic heart disease of native coronary artery without angina pectoris (principal); I35.2 Nonrheumatic aortic (valve) stenosis with insufficiency; I10 Essential (primary) hypertension; E78.5 Hyperlipidemia, unspecified; Z95.2 Presence of prosthetic heart valve
CPT/HCPCS: 36415; 85610; 93798

== ENCOUNTER 2019-11-03 15:15 | Outpatient (RCR) | payer MEDICARE, OTHER, SELFPAY ==
[2019-09-29 12:03] VITALS: BMI 30.8
--- NOTE | 2019-10-10 13:09 | PCM.CR.ITP ---
Exercise - 30-day Assessment - Visit Date of Eval: 10/10/19 Session #:: 10 - Stages of Change Stages of Change:: Action - Physician Prescribed Exercise Modalities: Treadmill, Airdyne, NuStep Frequency (days/week): 3 Duration (Minutes):: 30-45 Intensity: 60-80% age predicted maximum heart rate reserve METs - Progression: 0.5-1.0 MET, RPE 11-14 WEEK: 3.0 Target Heart Rate:: 99-129 - Hypertension Resting Blood Pressure:: 128/70 Peak Exercise Blood Pressure:: 128/70 Medication Changes:: No - Intervention Home Exercise/Activity Goal:: Sitting Time <3 hrs/day - Education Goals:: Warm-up, RPE SANA Scale, S/S, Safe Exercise, Self-Monitoring - Exercise Program Goals Exercise Program Goals: Aerobic Activity >30 min Nutrition - Initial Assessment - Program Goals Nutrition Program Goals: LDL <70. Total Cholesterol <200. HDL >45. Triglycerides <150. HgbA1C <7%. BMI <25 - Diabetes Do you monitor your blood sugar at home?: Yes Nutrition - 30-Day Assessment - Program Goals Nutrition Program Goals: LDL <70. Total Cholesterol <200. HDL >45. Triglycerides <150. HgbA1C <7%. BMI <25 - Visit Date of Eval: 10/10/19 - Stages of Change Stages of Change:: Action - Lipids Has the patient seen the dietitian?: No - Diabetes Diabetes:: No - Weight Management Weight:: 200 lb - DOWN 6 POUNDS. - Intervention Referral to dietitian:: No Referral to Diabetic Clinic:: No Will attend diet classes:: Yes - Education Attended class for:: Healthy eating Tobacco - Initial Assessment - Program Goals Tobacco Program Goals: Complete smoking cessation. Attend education classes. Improve Knowledge Test score - Learning Barriers Learning Barriers: Hearing, Vision Tobacco - 30-Day Assessment - Program Goals Tobacco Program Goals: Complete smoking cessation. Attend education classes. Improve Knowledge Test score - Stage of Change Stages of Change:: Action - Learning Barriers Learning Barriers: Participates in education - Family Support Do you have family support?: Yes - Tobacco Use Tobacco Use: Non-smoker Do you use smokeless tobacco?: No - Intervention Smoking Cessation Referral:: No Individual Education/Counseling:: No Education Schedule Given:: Yes - Education Attended class for:: Treating Heart Disease, How The Heart Works, What it means to have Heart Disease, How Coronary Artery Disease is Diagnosed Psychosocial - Initial Assess - Target Goals Target Goals: Assess presence or absence of depression. Using a valid screening tool, maximizes coping skills. Positive support system - Psychosocial Test Tool Used:: HANDS Depression Questionnaire - Assistive Devices Fall Risk Assessed:: Yes Psychosocial - 30-Day Assess - Target Goals Target Goals: Assess presence or absence of depression. Using a valid screening tool, maximizes coping skills. Positive support system - Stages of Change Stages of Change:: Action - Psychosocial Test Tool Used:: HANDS Depression Questionnaire Tests Completed: Mood Scale Test - Intervention PS - Interventions: Yes Attend Stress Management Classes, No Referral to Mental Health, No Referral to [facility] Case Management, No Referral to Physician, No Uses Stress Management Skills - Education Attended classes for:: Coping techniques, Signs & symptoms of depression, Stress management, Relaxation techniques - Patient/Program Goal Preventative Medication(s):: Aspirin, ANH inhibitor, Clopidogrel, Beta jaz, Statin/lipid - [place]INT REPORTS TAKING MEDICATIONS. - Assistive Devices Assistive Devices:: None Fall Risk Assessed:: Yes Patient Health Questionnaire 30-Day Re-eval Assessment 1. Little interest or pleasure in doing things: More than half the days 2. Feeling down, depressed, or hopeless: More than half the days 3. Trouble falling or staying asleep, or sleeping too much: Several days 4. Feeling tired or having little energy: More than half the days 5. Poor appetite or overeating: More than half the days 6. Feeling bad about yourself -- or that you are a failure or have let yourself or your family down: Several days 7. Trouble concentrating on things, such as reading the newspaper or watching television: Not at all 8. Moving or speaking so slowly that other people could have noticed. Or the opposite - being so fidgety or restless that you have been moving around a lot more than usual: Several days 9. Thoughts that you would be better off , or of hurting yourself in some way: Not at all How difficult have these problems made it for you to do your work, take care of things at home, or get along with other people?: Somewhat difficult Total Score: 11 Self-Efficacy 30-Day Re-eval Assessment We would like to know how confident you are in doing certain activities. Please select your confidence level for:: Select your confidence level for the following using the scale 1-10 where 1 is not at all confident and 10 is totally confident. Your score is the average of all 6 responses. Fatigue: How confident are you that you can keep the fatigue caused by your disease from interfering with the things you want to do? Select Number: 8 Physical Discomfort or Pain: How confident are you that you can keep the physical discomfort or pain of your disease from interfering with the things you want to do? Select Number: 8 Emotional Distress: How confident are you that you can keep the emotional distress caused by your disease from interfering with the things you want to do? Select Number: 10 Other Symptoms or Health Problems: How confident are you that you can keep other symptoms or health problems from interfering with the things you want to do? Select Number: 7 Different Tasks and Activities: How confident are you that you can do the different tasks and activities needed to manage your health condition so as to reduce your need to see a doctor? Select Number: 8 Medication: How confident are you that you can do things other than just taking medication to reduce how much your illness affects your everyday life? Select Number: 9 Total Score:: 8
[2019-10-10 13:12] VITALS: BP 128/70
== END 2019-11-04 23:59 ==
LOC: CR 15:15
PROVIDERS: Family Provider Family Medicine; PCP Family Medicine; Referring Provider Internal Medicine Cardiovascular Disease; Visit Provider Internal Medicine Cardiovascular Disease
DX: I25.10 Atherosclerotic heart disease of native coronary artery without angina pectoris (principal); I35.2 Nonrheumatic aortic (valve) stenosis with insufficiency; I10 Essential (primary) hypertension; E78.5 Hyperlipidemia, unspecified; Z95.2 Presence of prosthetic heart valve
CPT/HCPCS: 93798

== ENCOUNTER 2019-11-17 09:00 | Outpatient (RCR) | payer MEDICARE, OTHER, SELFPAY ==
[2019-09-29 12:03] VITALS: BMI 30.8
[2019-11-17 09:39] LABS: International Normalized Ratio 1.4; Prothrombin Time (Protime)PT. 17.2 SECONDS (11.7-14.9)
== END 2019-11-17 18:00 | disposition home or self-care (01) ==
LOC: LAB 09:00
PROVIDERS: Family Provider Family Medicine; PCP Family Medicine; Referring Provider Internal Medicine Cardiovascular Disease; Visit Provider Internal Medicine Cardiovascular Disease
DX: Z79.01 Long term (current) use of anticoagulants (principal); Z95.3 Presence of xenogenic heart valve; I25.10 Atherosclerotic heart disease of native coronary artery without angina pectoris; I35.2 Nonrheumatic aortic (valve) stenosis with insufficiency; I10 Essential (primary) hypertension; E78.5 Hyperlipidemia, unspecified; Z95.2 Presence of prosthetic heart valve
CPT/HCPCS: 36415; 85610; 93798

== ENCOUNTER → 2019-11-18 06:12 | Outpatient (CLI) | payer MEDICARE, OTHER, SELFPAY ==
[2019-09-29 12:03] VITALS: BMI 30.8
[2019-11-18 08:30] LABS: AST(SGOT) 29 U/L (15-37); Alanine Aminotransfer ALT/SGPT 38 U/L (16-61); Albumin, Serum 3.3 g/dL (3.2-5.0); Alkaline Phosphatase 157 U/L (45-117); Bilirubin, Direct 0.16 mg/dL (0.00-0.30); Cholesterol 145 mg/dL (200); Globulin 4.6 g/dL (2.2-4.2); High Density Lipoprotein 48 mg/dL; Protein, Total 7.9 g/dL (6.4-8.2); Triglycerides 114 mg/dL; Very Low Density Lipoprotein 23 mg/dL (5-40)
== END ==
PROVIDERS: Family Provider Family Medicine; PCP Family Medicine; Referring Provider Internal Medicine Cardiovascular Disease; Visit Provider Internal Medicine Cardiovascular Disease
DX: E78.00 Pure hypercholesterolemia, unspecified (principal); E78.5 Hyperlipidemia, unspecified
CPT/HCPCS: 36415; 80061; 80076

== ENCOUNTER 2019-12-05 15:15 | Outpatient (RCR) | payer MEDICARE, OTHER, SELFPAY ==
[2019-09-29 12:03] VITALS: BMI 30.8
[2019-11-05 00:50] VITALS: BP 128/70
--- NOTE | 2019-11-10 06:46 | CR.ITP_ITS ---
Exercise - 60-Day Assessment - Visit Date of Eval: 11/10/19 Session #:: 20 - started CR on 09/15/2019 - Stages of Change Stages of Change:: Action - Physician Prescribed Exercise Modalities: Treadmill, Airdyne, NuStep Frequency (days/week): 3 Duration (Minutes):: 30-45 Intensity: 60-80% age predicted maximum heart rate reserve METs - Progression: 0.5-1.0 MET, RPE 11-14 WEEK: 3 unchanged RPE 12-13 Target Heart Rate:: 99-129 max HR 100 - Intervention Home Exercise/Activity Goal:: Moderate Exercise 30 min/day x 5 days/wk - Education Goals:: Warm-up, RPE SANA Scale, S/S, Safe Exercise, Self-Monitoring - Exercise Program Goals Exercise Program Goals: Aerobic Activity >30 min Nutrition - Initial Assessment - Program Goals Nutrition Program Goals: LDL <70. Total Cholesterol <200. HDL >45. Triglycerides <150. HgbA1C <7%. BMI <25 - Diabetes Do you monitor your blood sugar at home?: Yes Nutrition - 60-Day Assessment - Program Goals Nutrition Program Goals: LDL <70. Total Cholesterol <200. HDL >45. Triglycerides <150. HgbA1C <7%. BMI <25 - Visit Date of Eval: 11/10/19 - Stages of Change Stages of Change:: Action - Lipids Has the patient seen the dietitian?: No - Diabetes Diabetes:: Yes Insulin: Yes Non-Insulin Dependent?: Yes - Weight Management Weight:: 208 lb - increased from 200 - Intervention Referral to dietitian:: Yes - Why Weight Mangaement Referral to Diabetic Clinic:: Yes - DMST & Mngt Will attend diet classes:: Yes - Education Attended class for:: Signs & symptoms of hypoglycemia, Signs & symptoms of hyperglycemia, Relate diabetes to coronary artery disease, Healthy eating Tobacco - Initial Assessment - Program Goals Tobacco Program Goals: Complete smoking cessation. Attend education classes. Improve Knowledge Test score - Learning Barriers Learning Barriers: Hearing, Vision Tobacco - 60-Day Assessment - Program Goals Tobacco Program Goals: Complete smoking cessation. Attend education classes. Improve Knowledge Test score - Stage of Change Stages of Change:: Action - Learning Barriers Learning Barriers: Participates in education - Family Support Do you have family support?: Yes - Tobacco Use Tobacco Use: Non-smoker Do you use smokeless tobacco?: No - Intervention Smoking Cessation Referral:: No Education Schedule Given:: Yes - Education Attended class for:: Treating Heart Disease, How The Heart Works, What it means to have Heart Disease, How Coronary Artery Disease is Diagnosed, Heart Procedures, What Heart Medications Do, Risk Factors & Modifications, Living an Active Life, Nutrition, Stress Management & Relaxation, Sleep Disorders & Heart Disease Psychosocial - Initial Assess - Target Goals Target Goals: Assess presence or absence of depression. Using a valid screening tool, maximizes coping skills. Positive support system - Psychosocial Test Tool Used:: HANDS Depression Questionnaire - Assistive Devices Fall Risk Assessed:: Yes Psychosocial - 60-Day Assess - Target Goals Target Goals: Assess presence or absence of depression. Using a valid screening tool, maximizes coping skills. Positive support system - Stages of Change Stages of Change:: Action - Psychosocial Test Tool Used:: HANDS Depression Questionnaire - Intervention PS - Interventions: Yes Attend Stress Management Classes, No Referral to Mental Health, No Referral to [facility] Case Management, No Referral to Physician - Education Attended classes for:: Coping techniques, Signs & symptoms of depression, Stress management, Relaxation techniques - Patient/Program Goal Preventative Medication(s):: Aspirin, ANH inhibitor, Clopidogrel, Beta jaz, Statin/lipid - patient reports taking medications as prescribed. - Assistive Devices Assistive Devices:: None Fall Risk Assessed:: Yes Patient Health Questionnaire 60-Day Re-eval Assessment 1. Little interest or pleasure in doing things: Several days 2. Feeling down, depressed, or hopeless: Several days 3. Trouble falling or staying asleep, or sleeping too much: Several days 4. Feeling tired or having little energy: More than half the days 5. Poor appetite or overeating: More than half the days 6. Feeling bad about yourself -- or that you are a failure or have let yourself or your family down: Several days 7. Trouble concentrating on things, such as reading the newspaper or watching television: Not at all 8. Moving or speaking so slowly that other people could have noticed. Or the opposite - being so fidgety or restless that you have been moving around a lot more than usual: Several days 9. Thoughts that you would be better off , or of hurting yourself in some way: Not at all How difficult have these problems made it for you to do your work, take care of things at home, or get along with other people?: Somewhat difficult Total Score: 9 Self-Efficacy 60-Day Re-eval Assessment We would like to know how confident you are in doing certain activities. Please select your confidence level for:: Select your confidence level for the following using the scale 1-10 where 1 is not at all confident and 10 is totally confident. Your score is the average of all 6 responses. Fatigue: How confident are you that you can keep the fatigue caused by your disease from interfering with the things you want to do? Select Number: 8 Physical Discomfort or Pain: How confident are you that you can keep the physical discomfort or pain of your disease from interfering with the things you want to do? Select Number: 8 Emotional Distress: How confident are you that you can keep the emotional distress caused by your disease from interfering with the things you want to do? Select Number: 10 Other Symptoms or Health Problems: How confident are you that you can keep other symptoms or health problems from interfering with the things you want to do? Select Number: 8 Different Tasks and Activities: How confident are you that you can do the different tasks and activities needed to manage your health condition so as to reduce your need to see a doctor? Select Number: 9 Medication: How confident are you that you can do things other than just taking medication to reduce how much your illness affects your everyday life? Select Number: 9 Total Score:: 8
== END 2019-12-05 23:59 ==
LOC: CR 15:15
PROVIDERS: Family Provider Family Medicine; PCP Family Medicine; Referring Provider Internal Medicine Cardiovascular Disease; Visit Provider Internal Medicine Cardiovascular Disease
DX: I25.10 Atherosclerotic heart disease of native coronary artery without angina pectoris (principal); I35.2 Nonrheumatic aortic (valve) stenosis with insufficiency; I10 Essential (primary) hypertension; E78.5 Hyperlipidemia, unspecified; Z95.2 Presence of prosthetic heart valve
CPT/HCPCS: 93798

== ENCOUNTER → 2019-12-10 14:47 | Outpatient (CLI) | payer MEDICARE, OTHER, SELFPAY ==
[2019-11-21 12:08] VITALS: BMI 31.9
--- NOTE | 2019-12-10 14:48 | ECHOD_ITS ---
Reason For Study: Valve replacement eval Procedure This was a 2D Doppler, Color Flow transthoracic echocardiogram. Exam performed in department. Left Ventricle Normal LV size. Left ventricular systolic function is normal. The estimated ejection fraction is 55 %. Right Ventricle Normal RV size. Normal systolic function. Atria Normal left atrium. Normal right atrium. Mitral Valve Normal mitral valve. Tricuspid Valve Normal tricuspid valve. Mild tricuspid valve insufficiency. Pulmonary artery systolic pressure is 30 mmHg. Aortic Valve Calculated aortic valve area (continuity equation) is 1.6 cm2. Peak aortic valve gradient 21 mmHg. Mean aortic valve gradient 10 mmHg. Bioprosthetic aortic valve. Pulmonic Valve Normal pulmonic valve. Great Vessels Normal aortic root. The pulmonary artery is normal size. Normal inferior vena cava. Pericardium/Pleural No pericardial effusion. MMode/2D Measurements & Calculations LVIDd: 4.6 cm IVSd: 1.3 cm LVOT diam: 2.0 cm LVIDs: 2.7 cm LVPWd: 1.1 cm LVOT area: 3.0 cm2 RVDd: 3.3 cm FS: 40.9 % Ao root diam: 3.8 cm LAV(MOD-bp): 46.1 ml LA A4 area: 17.2 cm2 LA dimension: 4.2 cm LAV(MOD-bp) Indexed: 22.5 ml/m2 LAV(MOD-sp2): 40.0 ml LAV(MOD-sp4): 45.5 ml RA A4 area: 14.8 cm2 Time Measurements MV dec time: 0.28 sec Doppler Measurements & Calculations MV E max ian: 106.9 cm/sec Lat Peak E' Ian: 9.0 cm/sec Med Peak E' Ian: 4.8 cm/sec MV A max ian: 109.8 cm/sec E/E' lat: 11.8 E/E' med: 22.4 MV E/A: 0.97 MV V2 max: 112.7 cm/sec MV P1/2t max ian: 113.6 cm/sec Ao V2 max: 230.2 cm/sec MV max P.1 mmHg MV P1/2t: 89.5 msec Ao max P.2 mmHg MV V2 mean: 70.5 cm/sec MV dec slope: 371.9 cm/sec2 Ao V2 mean: 138.6 cm/sec MV mean P.3 mmHg Ao mean P.6 mmHg MV V2 VTI: 36.0 cm MVA(P1/2t): 2.5 cm2 Ao V2 VTI: 43.3 cm MVA(VTI): 2.2 cm2 OSEAS(I,D): 1.8 cm2 OSEAS(V,D): 1.6 cm2 LV V1 max: 119.7 cm/sec SV(LVOT): 78.3 ml PA V2 max: 141.6 cm/sec LV V1 max P.7 mmHg LV V1 mean P.5 mmHg LV V1 mean: 87.0 cm/sec LV V1 VTI: 25.7 cm TR max ian: 251.8 cm/sec TR max P.4 mmHg Interpretation Summary Normal LV size. Left ventricular systolic function is normal. Bioprosthetic aortic valve. Mild tricuspid valve insufficiency. The estimated ejection fraction is 55 %. Peak aortic valve gradient 21 mmHg. Mean aortic valve gradient 10 mmHg. Ordering Physician: Ryder Contreras Referring Physician: Ryder Contreras Performed By: Nathanael Salazar RCS
== END ==
PROVIDERS: PCP Family Medicine; Referring Provider Internal Medicine Cardiovascular Disease; Visit Provider Internal Medicine Cardiovascular Disease
DX: I25.10 Atherosclerotic heart disease of native coronary artery without angina pectoris (principal)
CPT/HCPCS: 93306

== ENCOUNTER → 2020-01-13 12:04 | Outpatient (CLI) | payer MEDICARE, OTHER, SELFPAY ==
[2020-01-09 08:35] VITALS: BMI 31.9
--- NOTE | 2020-01-13 12:09 | RAD_ITS ---
STUDY: X-RAY - CERVICAL SPINE REASON FOR EXAM: Male, 70 years old. stiff neck, unable to move, no trauma TECHNIQUE: 5 view(s) of the cervical spine were obtained. COMPARISON: None FINDINGS: There are degenerative changes of the anterior atlantoaxial articulation. Normal odontoid process. There is reversal of the normal cervical lordosis. There is anterior subluxation of C3 on C4 (4 mm). There is multi-level endplate spondylosis. There is multi-level degenerative disc disease with multilevel disc space narrowing. Bilateral multilevel apophyseal hypertrophy demonstrated. Variable degrees of bilateral neural foraminal encroachment, more significant at C3-C4 and C4-C5. The soft tissue structures are unremarkable. There is no demonstrated fracture of the cervical spine. RAD/Cerv Spine 4 or 5 Views IMPRESSION: Anterior subluxation of C3 on C4, likely chronic with secondary degenerative-type changes and hypertrophy of the facets. If indicated, stability can be assessed with flexion extension views in nonacute setting. No acute fracture. Underlying degenerative disease as described. Electronically Signed: Latricia Blackwell MD at 0:29 EDT , Service support ,
== END ==
PROVIDERS: PCP Family Medicine; Referring Provider Family Medicine; Visit Provider Family Medicine
DX: M54.2 Cervicalgia (principal)
CPT/HCPCS: 72050

== ENCOUNTER → 2020-01-21 08:08 | Outpatient (CLI) | payer MEDICARE, OTHER, SELFPAY ==
[2020-01-09 08:35] VITALS: BMI 31.9
--- NOTE | 2020-01-21 08:12 | CT_ITS ---
STUDY: CT CERVICAL SPINE WITHOUT CONTRAST REASON FOR EXAM: Male, 70 years old. Neck pain, stiffness, no injury. RADIATION DOSAGE (If Supplied By Facility): CTDIvol = ( 27.89 ) mGy, DLP = ( 568.42 ) mGycm TECHNIQUE: High resolution transaxial imaging was performed without contrast material. Sagittal and coronal images were reconstructed. Individualized dose optimization techniques were used for this CT. COMPARISON: Comparison is made with prior radiographs dated January 13, 2020. FINDINGS: Normal craniovertebral junction. There are degenerative changes of the anterior atlantoaxial articulation. Normal odontoid process. There is straightening of the normal cervical lordosis. Normal vertebral bodies and posterior osseous elements. C2-3: Facet joint osteoarthritis and hypertrophy worse on the left side. No significant stenosis is seen. C3-4: There is a minimal degree of anterior listhesis of C3 on C4. There is hypertrophy of the facet joints with facet joint osteoarthritis worse on the left side with the [id number] degree of the left neural foraminal stenosis. C4-5: Moderate degree of disc space narrowing with spondylosis. Facet joint osteoarthritis more prominent on the left side. Mild degree of neural foraminal stenosis. There is also evidence of a uncovertebral arthrosis. C5-6: Marked degree of disc space narrowing with spondylosis. Uncovertebral arthrosis. Bilateral neural foraminal stenosis. C6-7: Marked degree of disc space narrowing with spondylosis. Uncovertebral arthrosis. Mild degree of bilateral neural foraminal stenosis. C7-T1: Normal endplates. Normal disc height and morphology. Normal central canal and intervertebral neuroforamina. There is calcification of the carotid bifurcations bilaterally worse on the left side. CT/Spine Cervical without Contras IMPRESSION: Multilevel degenerative changes, as described above. Electronically Signed: Krishna Taylor, at 11:14 EDT , Service support ,
== END ==
PROVIDERS: PCP Family Medicine; Referring Provider Family Medicine; Visit Provider Family Medicine
DX: M54.2 Cervicalgia (principal)
CPT/HCPCS: 72125

== ENCOUNTER → 2020-02-02 07:10 | Outpatient (CLI) | payer MEDICARE, OTHER, SELFPAY ==
[2020-01-09 08:35] VITALS: BMI 31.9
[2020-02-02 08:33] LABS: Microalbumin,Random Urine 10.4 mg/L (NO RANGE EST.); Microalbumin:Creatinine Ratio 12.5 mg/g CRE (<30 mg/g CRE)
[2020-02-02 08:44] LABS: ALB/GLOB Ratio 0.8 RATIO (0.9-2.4); AST(SGOT) 28 U/L (15-37); Alanine Aminotransfer ALT/SGPT 39 U/L (16-61); Albumin, Serum 3.3 g/dL (3.2-5.0); Alkaline Phosphatase 151 U/L (45-117); Anion Gap 6 (5-15); BUN 16 mg/dL (7-18); BUN/Creat Ratio 16.9 RATIO (10-20); Calcium,Total 8.9 mg/dL (8.5-10.1); Chloride 102 mmol/L (98-107); Cholesterol 137 mg/dL (200); Creatinine, Serum 0.95 mg/dL (0.70-1.30); EST Glomerular Filtration Rate 84 mL/min (>60); Est Glom Filt Rate - Afr Amer 101 mL/min (>60); Globulin 4.1 g/dL (2.2-4.2); Glucose 137 mg/dL (74-106); High Density Lipoprotein 45 mg/dL; Potassium 4.2 mmol/L (3.5-5.1); Protein, Total 7.4 g/dL (6.4-8.2); Sodium Level 138 mmol/L (136-145); Triglycerides 124 mg/dL; Very Low Density Lipoprotein 25 mg/dL (5-40)
[2020-02-02 09:04] LABS: Hemoglobin A1c 7.8 % (4.2-6.3)
== END ==
PROVIDERS: PCP Family Medicine
DX: E11.65 Type 2 diabetes mellitus with hyperglycemia (principal); Z79.4 Long term (current) use of insulin
CPT/HCPCS: 36415; 80053; 80061; 82043; 82570; 83036

== ENCOUNTER 2020-03-12 06:14 | Day surgery (SDC) | payer MEDICARE, OTHER, SELFPAY ==
[2020-01-09 08:35] VITALS: BMI 31.9
--- NOTE | 2020-01-09 09:15 | HP_ITS ---
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 Is patient in pain?: No Allergies ramipril Adverse Reaction (Verified 01/09/20 08:35) cough Medications atorvastatin 40 mg tablet 40 mg PO QHS 11/28/17 [History Confirmed 01/09/20] folic acid 400 mcg tablet 400 mcg PO DAILY 11/28/17 [History Confirmed 01/09/20] Calcium Citrate/Vitamin D3 [Calcium Citrate-Vit D3 Tablet] 2 ea PO DAILY 11/29/17 [History Confirmed 01/09/20] Insulin Detemir [Levemir FlexPen] 50 unit SC DAILY 11/29/17 [History Confirmed 01/09/20] cholecalciferol (vitamin D3) 50 mcg (2,000 unit) capsule 2,000 unit PO DAILY 07/17/19 [History Confirmed 01/09/20] metformin 500 mg tablet 500 mg PO BID 07/17/19 [History Confirmed 01/09/20] multivitamin 1 cap PO DAILY 07/17/19 [History Confirmed 01/09/20] aspirin 81 mg tablet,delayed release 81 mg PO DAILY 09/29/19 [History Confirmed 01/09/20] empagliflozin 10 mg tablet 10 mg PO DAILY 09/29/19 [History Confirmed 01/09/20] furosemide 40 mg tablet 40 mg PO DAILY #10 tab 09/29/19 [Rx Confirmed 01/09/20] insulin lispro 100 unit/mL subcutaneous solution 20 unit SC TID 09/29/19 [History Confirmed 01/09/20] pantoprazole 40 mg tablet,delayed release 40 mg PO DAILY 09/29/19 [History Confirmed 01/09/20] amoxicillin 500 mg tablet 500 mg PO ONCE PRN tab 09/30/19 [History Confirmed 01/09/20] metoprolol tartrate 25 mg tablet 25 mg PO BID #90 tab 12/16/19 [Rx Confirmed 01/09/20] [facility] Medical History Atherosclerosis of coronary artery of [place] heart without angina pectoris (Chronic) Nonrheumatic aortic (valve) stenosis with insufficiency (Chronic) Essential (primary) hypertension (Chronic) Hyperlipidemia (Chronic) History of colon cancer (Chronic) History of kidney stones (Chronic) Obesity (Chronic) Type 2 diabetes mellitus (Chronic) Abnormal electrocardiogram [ECG] [EKG] (Resolved) Surgical History History of aortic valve replacement with bioprosthetic valve (Resolved 08/20/19) H/O coronary artery bypass surgery (Resolved 08/20/19) History of colon resection (Resolved) History of left heart catheterization (Resolved 07/21/19) History of lithotripsy (Resolved) History of tonsillectomy (Resolved) Hx of cholecystectomy (Resolved) Family History Mother Diabetes CVA (cerebral vascular accident) Social History (Updated 01/09/20 @ 09:[address] Neal Barakat MD) Smoking Status: Former smoker alcohol intake: current alcohol intake frequency: 0-2 drinks per day Alcohol type: beer substance use type: does not use caffeine: Yes Type: coffee what type of physical activity do you participate in: none seatbelt use: always do you feel safe at home: Yes HPI HPI HPI: BETH VELEZ, is a 70 M who presents to the office today for HPI HPI Surgical H&P: Yes HPI: BETH VELEZ, is a 70 M who presents to the office today for surgical consultation regarding a colonoscopy. The patient is a long-term patient of mine. He is remotely had a low anterior resection for colon cancer. He has never had any evidence of recurrence. I performed his most recent colonoscopy March 03, 2016. At that time I removed a 4 mm polyp in the descending colon and a 5 mm polyp in the descending colon. The anastomosis was widely patent. Pathology was consistent with tubular adenomas x2. He has not had any bright red blood per rectum or melena. Health remained stable however August 20 he had open heart surgery with coronary bypass grafting x2 and a valve replacement with a porcine valve. That was performed at [facility]. His local electromechanical inspector is Dr. Ryder Contreras. The patient is only currently on aspirin therapy. He is returned to work making mass. He does have some chronic constipation. He has orthopedic joint problems but no complaint of dyspnea on exertion. No abdominal pain. ROS General General: Yes colon cancer; no weight change, appetite, fatigue, breast cancer or weakness HEENT HEENT: No difficulty swallowing, eye injury, eye surgery, swollen glands or hoarseness Endo Endocrine: Yes diabetes mellitus; no thyroid disease, thyroid cancer, Hair loss, heat intolerance or cold intolerance Skin Skin: No rash or changing moles Breast Breast: No left breast lump, right breast lump, nipple discharge, breast pain, abnormal mammogram, abnormal US or breast enlargement Musc Musculoskeletal: Yes back problems and arthritis; no rheumatoid arthritis, gout or joint pain Cardio Cardiovascular: Yes heart disease and high blood pressure; no murmur, pacemaker, atrial fibrillation, heart attack, heart stent, palpitations, shortness of breat with exertion or chest pain Psych Psychiatric: No depression, anxiety or hearing voices Resp Respiratory: No shortness of breath, No sleep apnea, No cough, No COPD, No asthma, No emphysema, No wheezing Gastro Gastrointestinal: No abdominal pain, No nausea or vomiting, No diarrhea, Yes constipation, No blood in stool, No acid reflux, No hemorrhoids, No ulcers, No gallbladder problem, No black,tarry stools Darrell Hematologic: Yes blood thinners, No blood disorders, No bleeding, No anemia, No blood clots Neuro Neurologic: No system reviewed and no additional complaints, except as docu, No as per HPI, No abnormal walking, No abnormal hearing, No abnormal movements, No abnormal speech, No behavioral changes, No burning sensations, No confusion, No seizure-like activity, No unsteadiness, No dizziness, No localized weakness, No frequent falls, No headache(s), No lack of coordination, No loss of vision, No memory loss, No numbness, No other visual disturbances, No radiating pain, No restless legs, No sensory deficit, No fainting, No tingling, No tremor(s), No weakness, No other Exam Const General: cooperative, healthy appearing, comfortable Nutritional Appearance: overweight Orientation: alert, awake, oriented x3 Chest Chest palpation & inspection: normal inspection of the chest Breast Palpation: No nipple discharge Other: Well-healed median sternotomy incision Resp Effort & Inspection: normal respiratory effort Auscultation: clear to auscultation bilaterally Cardio Rate: regular rate Rhythm: regular rhythm Heart Sounds: no murmurs GI Palpation: soft, no hepatosplenomegaly Auscultation: normal bowel sounds Neuro Cognition: normal cognition Extrem General: no calf tenderness bilaterally Psych Affect: normal affect Assessment & Plan Problems 1. History of colon cancer Z85.038 2. History of colonic polyps Z86.010 Plan 70-year-old gentleman with a personal history of distal sigmoid cancer remotely resected without out evidence recurrence. Personal history of tubular adenomas of the colon. Recent history of successful coronary bypass surgery with porcine valve replacement. I recommend him a colonoscopy with possible biopsy or polypectomy as indicated. We will utilize monitored anesthesia care. I will protect the valve with preoperative IV antibiotics. He has had an opportunity to ask and have questions answered. We will schedule and proceed at his discretion. Cc: Dr. Joselo Barakat M.D., F.A.C.S. Coding Level of Care Code Off vis,est,level 3 Diagnoses History of colon cancer Z85.038 History of colonic polyps Z86.010 01/09/20 0915 <Electronically signed by Neal carlos MD> Date _ Neal Barakat MD As a result of the January 20, 2020 order by the [facility] director Lorri Bañuelos MD to cancel nonessential surgeries that would use PPE, and less special criteria are met, I have reviewed the clinical record for this patient and have determined that the schedule procedure does not meet criteria to go forward and should be canceled pursuant to director Bañuelos's order. The procedure will be rescheduled as soon as possible after the January 20, 2020 emergency order has been lifted
[2020-03-12 06:50] VITALS: BP 150/95; PULSE 74; RESP 16; TEMP 36.5; O2SAT 96; BMI 31.4
--- NOTE | 2020-03-12 06:54 | PCM.HP.BLA ---
Problem List (1) History of colonic polyps Status: Acute (2) History of colon cancer Status: Chronic History and Physical Date of Admission: 03/12/20 Intake Visit Reasons: Cscope Consult Chief Complaint: Follow-up visit. Steward/Stewardess Third Required: No Is patient in pain?: No Allergies ramipril Adverse Reaction (Verified 01/09/20 08:35) cough Medications atorvastatin 40 mg tablet 40 mg PO QHS 11/28/17 [History Confirmed 01/09/20] folic acid 400 mcg tablet 400 mcg PO DAILY 11/28/17 [History Confirmed 01/09/20] Calcium Citrate/Vitamin D3 [Calcium Citrate-Vit D3 Tablet] 2 ea PO DAILY 11/29/17 [History Confirmed 01/09/20] Insulin Detemir [Levemir FlexPen] 50 unit SC DAILY 11/29/17 [History Confirmed 01/09/20] cholecalciferol (vitamin D3) 50 mcg (2,000 unit) capsule 2,000 unit PO DAILY 07/17/19 [History Confirmed 01/09/20] metformin 500 mg tablet 500 mg PO BID 07/17/19 [History Confirmed 01/09/20] multivitamin 1 cap PO DAILY 07/17/19 [History Confirmed 01/09/20] aspirin 81 mg tablet,delayed release 81 mg PO DAILY 09/29/19 [History Confirmed 01/09/20] empagliflozin 10 mg tablet 10 mg PO DAILY 09/29/19 [History Confirmed 01/09/20] furosemide 40 mg tablet 40 mg PO DAILY #10 tab 09/29/19 [Rx Confirmed 01/09/20] insulin lispro 100 unit/mL subcutaneous solution 20 unit SC TID 09/29/19 [History Confirmed 01/09/20] pantoprazole 40 mg tablet,delayed release 40 mg PO DAILY 09/29/19 [History Confirmed 01/09/20] amoxicillin 500 mg tablet 500 mg PO ONCE PRN tab 09/30/19 [History Confirmed 01/09/20] metoprolol tartrate 25 mg tablet 25 mg PO BID #90 tab 12/16/19 [Rx Confirmed 01/09/20] [facility] Medical History Atherosclerosis of coronary artery of [place] heart without angina pectoris (Chronic) Nonrheumatic aortic (valve) stenosis with insufficiency (Chronic) Essential (primary) hypertension (Chronic) Hyperlipidemia (Chronic) History of colon cancer (Chronic) History of kidney stones (Chronic) Obesity (Chronic) Type 2 diabetes mellitus (Chronic) Abnormal electrocardiogram [ECG] [EKG] (Resolved) Surgical History History of aortic valve replacement with bioprosthetic valve (Resolved 08/20/19) H/O coronary artery bypass surgery (Resolved 08/20/19) History of colon resection (Resolved) History of left heart catheterization (Resolved 07/21/19) History of lithotripsy (Resolved) History of tonsillectomy (Resolved) Hx of cholecystectomy (Resolved) Family History Mother Diabetes CVA (cerebral vascular accident) Social History (Updated 01/09/20 @ 09:[address] Neal Barakat MD) Smoking Status: Former smoker alcohol intake: current alcohol intake frequency: 0-2 drinks per day Alcohol type: beer substance use type: does not use caffeine: Yes Type: coffee what type of physical activity do you participate in: none seatbelt use: always do you feel safe at home: Yes HPI HPI HPI: BETH VELEZ, is a 70 M who presents to the office today for HPI HPI Surgical H&P: Yes HPI: BETH VELEZ, is a 70 M who presents to the office today for surgical consultation regarding a colonoscopy. The patient is a long-term patient of mine. He is remotely had a low anterior resection for colon cancer. He has never had any evidence of recurrence. I performed his most recent colonoscopy March 03, 2016. At that time I removed a 4 mm polyp in the descending colon and a 5 mm polyp in the descending colon. The anastomosis was widely patent. Pathology was consistent with tubular adenomas x2. He has not had any bright red blood per rectum or melena. Health remained stable however August 20 he had open heart surgery with coronary bypass grafting x2 and a valve replacement with a porcine valve. That was performed at [facility]. His local motion picture set up worker is Dr. Ryder Contreras. The patient is only currently on aspirin therapy. He is returned to work making [employer]. He does have some chronic constipation. He has orthopedic joint problems but no complaint of dyspnea on exertion. No abdominal pain. ROS General General: Yes colon cancer; no weight change, appetite, fatigue, breast cancer or weakness HEENT HEENT: No difficulty swallowing, eye injury, eye surgery, swollen glands or hoarseness Endo Endocrine: Yes diabetes mellitus; no thyroid disease, thyroid cancer, Hair loss, heat intolerance or cold intolerance Skin Skin: No rash or changing moles Breast Breast: No left breast lump, right breast lump, nipple discharge, breast pain, abnormal mammogram, abnormal US or breast enlargement Musc Musculoskeletal: Yes back problems and arthritis; no rheumatoid arthritis, gout or joint pain Cardio Cardiovascular: Yes heart disease and high blood pressure; no murmur, pacemaker, atrial fibrillation, heart attack, heart stent, palpitations, shortness of breat with exertion or chest pain Psych Psychiatric: No depression, anxiety or hearing voices Resp Respiratory: No shortness of breath, No sleep apnea, No cough, No COPD, No asthma, No emphysema, No wheezing Gastro Gastrointestinal: No abdominal pain, No nausea or vomiting, No diarrhea, Yes constipation, No blood in stool, No acid reflux, No hemorrhoids, No ulcers, No gallbladder problem, No black,tarry stools Darrell Hematologic: Yes blood thinners, No blood disorders, No bleeding, No anemia, No blood clots Neuro Neurologic: No system reviewed and no additional complaints, except as docu, No as per HPI, No abnormal walking, No abnormal hearing, No abnormal movements, No abnormal speech, No behavioral changes, No burning sensations, No confusion, No seizure-like activity, No unsteadiness, No dizziness, No localized weakness, No frequent falls, No headache(s), No lack of coordination, No loss of vision, No memory loss, No numbness, No other visual disturbances, No radiating pain, No restless legs, No sensory deficit, No fainting, No tingling, No tremor(s), No weakness, No other Exam Const General: cooperative, healthy appearing, comfortable Nutritional Appearance: overweight Orientation: alert, awake, oriented x3 Chest Chest palpation & inspection: normal inspection of the chest Breast Palpation: No nipple discharge Other: Well-healed median sternotomy incision Resp Effort & Inspection: normal respiratory effort Auscultation: clear to auscultation bilaterally Cardio Rate: regular rate Rhythm: regular rhythm Heart Sounds: no murmurs GI Palpation: soft, no hepatosplenomegaly Auscultation: normal bowel sounds Neuro Cognition: normal cognition Extrem General: no calf tenderness bilaterally Psych Affect: normal affect Assessment & Plan Problems 1. History of colon cancer Z85.038 2. History of colonic polyps Z86.010 Plan 70-year-old gentleman with a personal history of distal sigmoid cancer remotely resected without out evidence recurrence. Personal history of tubular adenomas of the colon. Recent history of successful coronary bypass surgery with porcine valve replacement. I recommend him a colonoscopy with possible biopsy or polypectomy as indicated. We will utilize monitored anesthesia care. I will protect the valve with preoperative IV antibiotics. He has had an opportunity to ask and have questions answered. We will schedule and proceed at his discretion. I have seen this patient recently in the office. His health has remained steady since that time. He has been able to successfully take his bowel prep. We have again discussed the technique, benefit, risk and alternatives of colonoscopy. He has a personal history of colon cancer and a personal history of colon polyps. We will prescribe antibiotic therapy for his artificial aortic valve. Cc: Dr. Joselo Barakat M.D., F.A.C.S.
[2020-03-12] MEDS: Lactated Ringers 1,000 ML 100 ML IV (07:04)
--- NOTE | 2020-03-12 07:10 | COLBX_PTH ---
PATIENT: BETH VELEZ LOC: EN U#:[id number] AGE/SX: 70/M ROOM: RE03/12/[address]: Dr. Neal Barakat MD : 1950 BED: DIS: 03/12/2020 SPEC #: [id number] RECD: 03/12/20 12:08 STATUS: VIBHA ANDRADE #: [id number] LYNDA: 03/12/20 07:[address]: Neal Barakat DEPT: SURGICAL PATHOLOGY RECD BY: Orion Hay ENTERED: 03/15/20 08:57 SP TYPE: COLON BX OTHR DR: Dr. Joselo Sierra MD Tissues: Descending colon Procedures: Surgery Specimen Level IV HEADER OPERATION: Colonoscopy (MAC) PRE-OP DIAGNOSIS: History colonic polyps; history colon CA TISSUE SUBMITTED: Descending colon biopsy MICROSCOPIC DIAGNOSIS Descending colon, biopsy: Tubular adenoma. SJ:yaya 03/16/20 COMMENT Case has been reviewed in consultation with Dr. Miramontes who concurs with the above diagnosis. IDC:AM MICROSCOPIC DESCRIPTION Slides are reviewed. GROSS DESCRIPTION Received in fixative is one container labeled with the patient's name and designated descending polyp biopsy. The specimen consists of one irregular fragment of light peralta soft tissue that measures 0.3 x 0.3 x 0.1 cm. The specimen is totally submitted in one cassette. / SJ:rg 03/15/20 TC:1 CPT: 83773
[2020-03-12 07:11] LABS: Bedside Glucose 110 mg/dL (70-110)
[2020-03-12 07:28] VITALS: BP 107/70; BP 150/95; PULSE 63; RESP 14; TEMP 36.5; O2SAT 97
--- NOTE | 2020-03-12 07:32 | OP.COLON_ITS ---
Patient Name: Jair Gardner Procedure Date: 03/12/2020 7:07 AM Date of : 1950 Age: 70 Procedure: Colonoscopy Indications: High risk colon cancer surveillance: Personal history of colonic polyps, High risk colon cancer surveillance: Personal history of colon cancer Providers: Neal Barakat MD Referring MD: Neal Barakat MD Medicines: See the Anesthesia note for documentation of the administered medications Patient Profile: Last Colonoscopy: February 2016. Complications: No immediate complications. Procedure: Pre-Anesthesia Assessment: - Prior to the procedure, a History and Physical was performed, and patient medications and allergies were reviewed. The patient's tolerance of previous anesthesia was also reviewed. The risks and benefits of the procedure and the sedation options and risks were discussed with the patient. All questions were answered, and informed consent was obtained. Prior Anticoagulants: The patient has taken no previous anticoagulant or antiplatelet agents. ASA Grade Assessment: III - A patient with severe systemic disease. After reviewing the risks and benefits, the patient was deemed in satisfactory condition to undergo the procedure. After I obtained informed consent, the scope was passed under direct vision. Throughout the procedure, the patient's blood pressure, pulse, and oxygen saturations were monitored continuously. The colonoscope was introduced through the anus and advanced to the cecum, identified by appendiceal orifice and ileocecal valve. The colonoscopy was performed without difficulty. The patient tolerated the procedure well. The quality of the bowel preparation was good. The ileocecal valve and the appendiceal orifice were photographed. Scope In: 7:12:14 AM Scope Withdrawal Time 0 hours 9 minutes 12 seconds Scope Out: 7:24:44 AM Total Procedure Duration Time 0 hours 12 minutes 30 seconds Findings: The digital rectal exam findings include non-thrombosed internal hemorrhoids and internal hemorrhoids that prolapse with straining, but spontaneously regress to the resting position (Grade II). Pertinent negatives include normal prostate (size, shape, and consistency). A 3 mm polyp was found in the mid descending colon. The polyp was sessile. The polyp was removed with a cold biopsy forceps. Resection and retrieval were complete. A few diverticula were found in the sigmoid colon. The exam was otherwise without abnormality. Impression: - Non-thrombosed internal hemorrhoids and internal hemorrhoids that prolapse with straining, but spontaneously regress to the resting position (Grade II) found on digital rectal exam. - One 3 mm polyp in the mid descending colon, removed with a cold biopsy forceps. Resected and retrieved. - Diverticulosis in the sigmoid colon. - The examination was otherwise normal. Recommendation: - Discharge patient to home. - Resume previous diet. - Continue present medications. - Telephone my office for pathology results in 1 week. - Repeat colonoscopy in 5 years for surveillance based on pathology results. Procedure Code(s): --- Professional --- 04128, Colonoscopy, flexible; with biopsy, single or multiple Diagnosis Code(s): --- Professional --- Z86.010, Personal history of colonic polyps Z85.038, Personal history of other malignant neoplasm of large intestine K64.1, Second degree hemorrhoids D12.4, Benign neoplasm of descending colon K57.30, Diverticulosis of large intestine without perforation or abscess without bleeding CPT copyright 2017 [employer]. All rights reserved. The codes documented in this report are preliminary and upon general maintenance mechanic review may be revised to meet current compliance requirements. Neal Barakat MD 03/12/2020 7:32:07 AM This report has been signed electronically. Number of Addenda: 0 Note Initiated On: 03/12/2020 7:07 AM
--- NOTE | 2020-03-12 07:32 | OP.CCLET_ITS ---
03/12/2020 Joselo Sierra Re : Colonoscopy procedure for Jair Gardner Dear Mariela This procedure was performed on Thursday, March 12, 2020. My impressions and recommendations are as follows: Impressions : - Non-thrombosed internal hemorrhoids and internal hemorrhoids that prolapse with straining, but spontaneously regress to the resting position (Grade II) found on digital rectal exam. - One 3 mm polyp in the mid descending colon, removed with a cold biopsy forceps. Resected and retrieved. - Diverticulosis in the sigmoid colon. - The examination was otherwise normal. Recommendations : - Discharge patient to home. - Resume previous diet. - Continue present medications. - Telephone my office for pathology results in 1 week. - Repeat colonoscopy in 5 years for surveillance based on pathology results. My findings are described in the full procedure note, which is enclosed. If I can be of further assistance, please feel free to contact me at Doctor phone number(s): Work: . Sincerely, Neal Barakat MD 03/12/2020 7:32:07 AM This report has been signed electronically.
[2020-03-12 07:35] VITALS: BP 102/72; BP 150/95; PULSE 57; RESP 16; O2SAT 97
[2020-03-12 07:40] VITALS: BP 122/72; BP 150/95; PULSE 59; RESP 16; O2SAT 98
[2020-03-12 07:47] VITALS: BP 116/78; BP 150/95; PULSE 56; RESP 16; TEMP 36.8; O2SAT 100
[2020-03-12 08:07] VITALS: BP 150/95
== END 2020-03-12 08:13 | disposition home or self-care (01) ==
LOC: EN 06:15 → AC 06:15
PROVIDERS: PCP Family Medicine; Referring Provider Surgery; Visit Provider Surgery
PROC: 0DJD8ZZ Inspection of Lower Intestinal Tract, Via Natural or Artificial Opening Endoscopic (ICD-10-PCS; CPT 45378; principal; 2020-03-12 07:05)
DX: Z12.11 Encounter for screening for malignant neoplasm of colon (principal); Z85.038 Personal history of other malignant neoplasm of large intestine; Z86.010 Personal history of colon polyps; K64.1 Second degree hemorrhoids; D12.4 Benign neoplasm of descending colon; K57.30 Diverticulosis of large intestine without perforation or abscess without bleeding; E78.5 Hyperlipidemia, unspecified; E66.9 Obesity, unspecified; Z68.31 Body mass index [BMI] 31.0-31.9, adult; E11.9 Type 2 diabetes mellitus without complications; I10 Essential (primary) hypertension; Z95.2 Presence of prosthetic heart valve; Z79.899 Other long term (current) drug therapy; Z79.4 Long term (current) use of insulin; Z79.82 Long term (current) use of aspirin; Z87.891 Personal history of nicotine dependence
CPT/HCPCS: 45380; 82962; 88305; J7120; J2405

== ENCOUNTER → 2020-06-07 07:08 | Outpatient (CLI) | payer MEDICARE, OTHER, SELFPAY ==
[2020-06-07 08:36] LABS: AST(SGOT) 31 U/L (15-37); Alanine Aminotransfer ALT/SGPT 40 U/L (16-61); Albumin, Serum 3.4 g/dL (3.2-5.0); Alkaline Phosphatase 131 U/L (45-117); Bilirubin, Direct 0.18 mg/dL (0.00-0.30); Cholesterol 156 mg/dL (200); Globulin 3.9 g/dL (2.2-4.2); High Density Lipoprotein 48 mg/dL; Protein, Total 7.3 g/dL (6.4-8.2); Triglycerides 157 mg/dL; Very Low Density Lipoprotein 31 mg/dL (5-40)
== END ==
PROVIDERS: PCP Family Medicine; Referring Provider Internal Medicine Cardiovascular Disease; Visit Provider Internal Medicine Cardiovascular Disease
DX: E78.00 Pure hypercholesterolemia, unspecified (principal); E78.5 Hyperlipidemia, unspecified
CPT/HCPCS: 36415; 80061; 80076

== ENCOUNTER → 2020-11-29 12:12 | Outpatient (CLI) | payer MEDICARE, OTHER, SELFPAY ==
[2020-09-23 08:11] VITALS: BMI 33.5
--- NOTE | 2020-11-29 12:15 | RAD_ITS ---
STUDY: X-RAY - ABDOMEN/PELVIS REASON FOR EXAM: Male, 70 years old. recurrent stone? -- right flank pain TECHNIQUE: Single AP view of the abdomen / pelvis. COMPARISON: None. FINDINGS: Normal visualized lung bases. There is an unremarkable bowel gas pattern. The visualized liver, spleen and kidneys are grossly normal in size and morphology. Normal soft tissue structures. Normal visualized osseous structures. RAD/Abdomen Single View IMPRESSION: Normal x-ray examination of the abdomen and pelvis. Electronically Signed: Amari See MD at 8:05 EST Tel , Service support ,
== END ==
PROVIDERS: PCP Family Medicine; Referring Provider Family Medicine; Visit Provider Family Medicine
DX: R10.9 Unspecified abdominal pain (principal); E11.9 Type 2 diabetes mellitus without complications; Z87.442 Personal history of urinary calculi
CPT/HCPCS: 74018; 87086

== ENCOUNTER → 2020-12-06 07:50 | Outpatient (CLI) | payer MEDICARE, OTHER, SELFPAY ==
[2020-09-23 08:11] VITALS: BMI 33.5
--- NOTE | 2020-12-06 07:53 | CT_ITS ---
STUDY: CT ABDOMEN AND PELVIS WITHOUT CONTRAST REASON FOR EXAM: Male, 70 years old. Right flank pain x 3 weeks, hx stones. Prior cholecystectomy, partial colectomy, lithotripsy, hypertension, diabetes. RADIATION DOSAGE (If Supplied By Facility): CTDIvol = ( 16.90 ) mGy, DLP = ( 1043.02 ) mGycm TECHNIQUE: Transaxial images were obtained from the dome of the diaphragm to the symphysis pubis without oral contrast, and without intravenous contrast. Sagittal and coronal images were reconstructed. Individualized dose optimization techniques were used for this CT. COMPARISON: Comparison is made with prior examination dated 03/28/2010. FINDINGS: The visualized lung bases are unremarkable. Prior midline sternotomy and aortic valve replacement. Coronary artery calcification. There is a 3.3 cm x 2.4 cm well-defined hypodense nodule in the anterior medial aspect of the right lobe of the liver. Minimal posterior linear calcification is seen. This is unchanged. Mild degree of fatty infiltration of the liver. The patient is status post cholecystectomy. Normal spleen. Normal pancreas. Normal bilateral adrenal glands. 3 mm nonobstructive calculus in the upper pole calyx of the right kidney. Punctate calcification in the lower pole calyx of the left kidney. Mild degree of nonspecific bilateral perinephric stranding. Normal visualized stomach. Normal small intestine. There are multiple colonic diverticula consistent with diverticulosis. Surgical anastomosis seen at the sigmoid rectal junction. The appendix is visualized and appears normal. There is scattered atherosclerotic calcification of the abdominal aorta, without a demonstrated aneurysm. Normal inferior vena cava. Normal retroperitoneum. Normal urinary bladder. There are prostatic calcifications. Small bilateral inguinal areas containing fat. There are diffuse degenerative changes of the visualized lumbar spine. CT/Abdomen/Pelvis without Cont IMPRESSION: Stable 3.3 cm x 2.4 cm well-defined nodule in the anterior medial aspect of right lobe of liver. Small nonobstructive bilateral intrarenal calculi without evidence of hydronephrosis. Electronically Signed: Krishna Taylor MD at 9:00 EST , Service support ,
== END ==
PROVIDERS: PCP Family Medicine; Referring Provider Family Medicine; Visit Provider Family Medicine
DX: N20.1 Calculus of ureter (principal); R10.9 Unspecified abdominal pain
CPT/HCPCS: 74176

== ENCOUNTER → 2020-12-31 13:28 | Outpatient (CLI) | payer MEDICARE, OTHER, SELFPAY ==
[2020-09-23 08:11] VITALS: BMI 33.5
[2020-12-31 16:06] LABS: ALB/GLOB Ratio 0.9 RATIO (0.9-2.4); AST(SGOT) 41 U/L (15-37); Alanine Aminotransfer ALT/SGPT 62 U/L (16-61); Albumin, Serum 3.7 g/dL (3.2-5.0); Alkaline Phosphatase 154 U/L (45-117); Anion Gap 6 (5-15); BUN 21 mg/dL (7-18); BUN/Creat Ratio 21.6 RATIO (10-20); Calcium,Total 9.5 mg/dL (8.5-10.1); Chloride 104 mmol/L (98-107); Creatinine, Serum 0.97 mg/dL (0.70-1.30); EST Glomerular Filtration Rate 81 mL/min (>60); Est Glom Filt Rate - Afr Amer 98 mL/min (>60); Globulin 4.1 g/dL (2.2-4.2); Glucose 127 mg/dL (74-106); Potassium 4.5 mmol/L (3.5-5.1); Protein, Total 7.8 g/dL (6.4-8.2); Sodium Level 139 mmol/L (136-145); Thyroid Stim Hormone (TSH) 1.96 uIU/mL (0.358-3.74)
[2020-12-31 17:26] LABS: Absolute Lymphocyte Count 1.98 X10^3/uL (0.83-4.51); Basophil# 0.04 X10^3/uL; Basophil% 0.6 % (0-1); Eosinophil# 0.13 X10^3/uL; Eosinophils% 1.9 % (0-5); Hematocrit 53.3 % (40-54); Hemoglobin 17.2 g/dL (13.0-16.5); Lymphocyte # 1.98 X10^3/ul (4.0); Lymphocyte % 28.5 % (19-41); Mean Corp Hgb Conc 32.3 g/dL (32-36); Mean Corpuscular Hgb 33.3 pg (27.0-32.0); Mean Corpuscular Volume 103.1 fL (80-94); Mean Platelet Vol. 10.2 fl (6.2-12.0); Monocyte% 11.5 % (0-10); NRBC Flagged by Analyzer 0 % (0-5); Neutrophil # 3.98 X10^3/uL (2.7-7.7); Neutrophil % 57.4 % (47-70); Platelet Count 194 K/mm3 (150-450); RBC Distribution Width CV 12.8 % (11.6-14.6); RBC Distribution Width SD 48.9 fl (35.1-43.9); Red Blood Count 5.17 M/mm3 (4.6-6.2); White Blood Count 6.9 K/mm3 (4.4-11.0)
== END ==
PROVIDERS: PCP Family Medicine; Visit Provider Family Medicine
DX: E11.9 Type 2 diabetes mellitus without complications (principal); E78.5 Hyperlipidemia, unspecified; I10 Essential (primary) hypertension
CPT/HCPCS: 36415; 80053; 83036; 84443; 85025

== ENCOUNTER → 2022-05-20 | Outpatient (CLI) | payer MEDICARE, OTHER, SELFPAY ==
[2022-05-20 09:12] LABS: Hemoglobin A1c 7.1 % (3.8-5.6)
[2022-05-20 09:13] LABS: ALB/GLOB Ratio 0.9 RATIO (0.9-2.4); AST(SGOT) 29 U/L (15-37); Alanine Aminotransfer ALT/SGPT 43 U/L (16-61); Albumin, Serum 3.5 g/dL (3.2-5.0); Alkaline Phosphatase 137 U/L (45-117); Anion Gap 7 (5-15); BUN 22 mg/dL (7-18); BUN/Creat Ratio 22.7 RATIO (10-20); Calcium,Total 9.2 mg/dL (8.5-10.1); Chloride 106 mmol/L (98-107); Cholesterol 132 mg/dL (200); Creatinine, Serum 0.97 mg/dL (0.70-1.30); EST Glomerular Filtration Rate 81 mL/min (>60); Est Glom Filt Rate - Afr Amer 98 mL/min (>60); Globulin 3.9 g/dL (2.2-4.2); Glucose 155 mg/dL (74-106); High Density Lipoprotein 43 mg/dL; Potassium 4.6 mmol/L (3.5-5.1); Protein, Total 7.4 g/dL (6.4-8.2); Sodium Level 140 mmol/L (136-145); Triglycerides 114 mg/dL; Very Low Density Lipoprotein 23 mg/dL (5-40)
== END | disposition home or self-care (01) ==
LOC: LAB 07:05
PROVIDERS: PCP Family Medicine; Referring Provider Internal Medicine Cardiovascular Disease; Visit Provider Internal Medicine Cardiovascular Disease
DX: E78.00 Pure hypercholesterolemia, unspecified (principal); E11.9 Type 2 diabetes mellitus without complications; Z79.4 Long term (current) use of insulin; R74.8 Abnormal levels of other serum enzymes; I25.10 Atherosclerotic heart disease of native coronary artery without angina pectoris; I35.2 Nonrheumatic aortic (valve) stenosis with insufficiency
CPT/HCPCS: 36415; 80053; 80061; 83036

== ENCOUNTER → 2022-08-16 | Outpatient (CLI) | payer MEDICARE, OTHER, SELFPAY ==
[2022-08-27 09:30] LABS: Gluten <0.10 kU/L (Class 0)
== END | disposition home or self-care (01) ==
LOC: PAVLAB 15:19
PROVIDERS: PCP Family Medicine; Referring Provider Surgery; Visit Provider Surgery
DX: R19.7 Diarrhea, unspecified (principal); R10.9 Unspecified abdominal pain; T78.40XA Allergy, unspecified, initial encounter
CPT/HCPCS: 36415; 86003

== ENCOUNTER → 2022-08-28 | Outpatient (CLI) | payer MEDICARE, OTHER, SELFPAY ==
[2022-08-28 12:40] LABS: Vitamin B12 471 pg/mL (211-911)
== END | disposition home or self-care (01) ==
LOC: BFHLAB 09:24
PROVIDERS: PCP Family Medicine; Visit Provider Family Medicine
DX: E53.8 Deficiency of other specified B group vitamins (principal)
CPT/HCPCS: 36415; 82607

== ENCOUNTER 2022-09-19 07:53 | Day surgery (SDC) | payer MEDICARE, OTHER, SELFPAY ==
[2022-09-19] VITALS (7 sets, daily range): BP systolic 96–119; BP diastolic 66–78; PULSE 63–73; RESP 12–18; TEMP 36.1–36.6; O2SAT 96–100; BMI 32.4
[2022-09-19] MEDS: Lactated Ringers 1,000 ML 15 ML IV (08:10)
--- NOTE | 2022-09-19 08:19 | HP.PCM_ITS ---
History and Physical Date of Admission: 09/19/22 isit Reasons:?Diarrhea Chief Complaint: diarrhea Is patient in pain?: No Allergies ramipril Adverse Reaction (Verified 08/16/22 14:15) cough Medications folic acid 400 mcg tablet 400 mcg PO DAILY SUPPLEMENT 11/28/17 [History Confirmed 08/16/22] cholecalciferol (vitamin D3) 50 mcg (2,000 unit) capsule 2,000 unit PO DAILY 07/17/19 [History Confirmed 08/16/22] metformin 500 mg tablet 500 mg PO BID 07/17/19 [History Confirmed 08/16/22] multivitamin 1 cap PO DAILY 07/17/19 [History Confirmed 08/16/22] aspirin 81 mg tablet,delayed release (Adult Aspirin Regimen) 81 mg PO DAILY 09/29/19 [History Confirmed 08/16/22] insulin aspart U-100 100 unit/mL subcutaneous solution 14 unit SQ TID 03/09/20 [History Confirmed 08/16/22] empagliflozin 25 mg tablet (Jardiance) 12.5 mg PO DAILY 02/15/21 [History Confirmed 08/16/22] atorvastatin 40 mg tablet (Lipitor) 40 mg PO QHS CHOLESTEROL #90 tabs 05/18/22 [Rx Confirmed 08/16/22] losartan 50 mg tablet 50 mg PO DAILY #90 tabs 05/18/22 [Rx Confirmed 08/16/22] metoprolol tartrate 25 mg tablet 25 mg PO BID #180 tabs 05/18/22 [Rx Confirmed 08/16/22] insulin glargine 100 unit/mL subcutaneous solution 35 unit subcut BREAKFAST 06/22/22 [History Confirmed 08/16/22] PFSH Medical History? Abnormal electrocardiogram [ECG] [EKG] Atherosclerosis of coronary artery of [place] heart without angina pectoris DDD (degenerative disc disease) Essential (primary) hypertension History of colon cancer History of colonic polyps History of kidney stones Hyperlipidemia Nonrheumatic aortic (valve) stenosis with insufficiency Obesity Type 2 diabetes mellitus Surgical History? H/O coronary artery bypass surgery (08/20/19) History of aortic valve replacement with bioprosthetic valve (08/20/19) History of colon resection History of left heart catheterization (07/21/19) History of lithotripsy History of tonsillectomy Hx of cholecystectomy Family History? Mother Diabetes CVA (cerebral vascular accident) Social History? Smoking Status:? Former smoker alcohol intake:? current alcohol intake frequency: 0-2 drinks per day Alcohol type: beer substance use type:? does not use caffeine:? Yes Type: coffee what type of physical activity do you participate in:? none seatbelt use:? always do you feel safe at home:? Yes HPI HPI HPI: 72-year-old gentleman.? I have most recently assisted him March 12, 2020 with a colonoscopy.? 3 mm polyp in the descending colon identified.? Tubular adenoma.? Diverticulosis identified.? Very remotely had performed a low anterior resection for him for colon cancer. August 20, 2019 he had open heart surgery coronary bypass grafting x2 and porcine valve replacement The past year the patient has had frequent bouts of diarrhea.? Usually in the morning.? He can have 1 bout or several bouts for 5 times.? He cannot associate this with any particular food intake.? No fever or chills.? No blood per rectum.? He wonders whether could be related to coffee.? He does not notice any problems with lactose or gluten products but he has not tried to restrict.? Has not had any unexpected weight loss.? There is no fever chills or sweats.? He is not at this point sought attention from any other physician. ROS General General: Yes colon cancer; No weight change, appetite, fatigue, breast cancer or weakness HEENT HEENT: No difficulty swallowing, eye injury, eye surgery, swollen glands or hoarseness Endo Endocrine: Yes diabetes mellitus; No thyroid disease, thyroid cancer, Hair loss, heat intolerance or cold intolerance Skin Skin: Yes changing moles; No rash Breast Breast: No left breast lump, right breast lump, nipple discharge, breast pain, abnormal mammogram, abnormal US or breast enlargement Musc Musculoskeletal: Yes back problems and arthritis; No rheumatoid arthritis, gout or joint pain Cardio Cardiovascular: Yes heart disease and high blood pressure; No murmur, pacemaker, atrial fibrillation, heart attack, heart stent, palpita tions, shortness of breat with exertion or chest pain Psych Psychiatric: No depression, anxiety or hearing voices Resp Respiratory: No shortness of breath, Yes sleep apnea, No cough, No COPD, No asthma, No emphysema and No wheezing Gastro Gastrointestinal: No abdominal pain, No nausea or vomiting, Yes diarrhea, No constipation, No blood in stool, No acid reflux, No hemorrhoids, No ulcers, No gallbladder problem and No black,tarry stools Darrell Hematologic: No blood thinners, No blood disorders, No bleeding, No anemia and No blood clots Neuro Neurologic: No system reviewed and no additional complaints, except as documented, No as per HPI, No abnormal gait, No abnormal hearing, No abnormal movements, No abnormal speech, No behavioral changes, No burning sensations, No confusion, No convulsions, No disequilibrium, No dizziness, No localized weakness, No frequent falls, No headache(s), No lack of coordination, No loss of vision, No memory loss, No numbness, No other visual disturbances, No radicular pain, No restless legs, No sensory deficit, No syncope, No tingling, No tremor(s), No weakness and No other Exam Const General: cooperative, comfortable and no acute distress [facility] Head: normal to inspection Eyes General: appearance normal, both eyes and all related structures Neck Neck: normal visual inspection Resp Effort & Inspection: normal respiratory effort Auscultation: clear to auscultation bilaterally Cardio Rate: regular rate Rhythm: regular rhythm Other: 2/6 systolic ejection murmur GI Other: Overweight, soft, distended, normal bowel sounds, no focal tenderness Other: Mild kyphosis Neuro General: patient alert, patient awake and patient oriented x3 Extrem General: no calf tenderness Psych Appearance: grossly normal Assessment and Plan Assessment and Plan (1) Diarrhea: ?Plan: Diarrhea of unexplained etiology. I recommend the patient that we obtain gluten labs. I have asked him to hold his morning coffee to see if that makes any difference as that is the only thing that he associates as a potential etiology I recommend to him a colonoscopy with random colonic biopsies looking for microcytic colitis He has had an opportunity ask and have questions answered.? With ongoing for a year but this does not sound like a viral or bacterial overload.? The patient states he also has an upcoming appointment with Dr. Joselo Sierra.? Not sure whether the patient would benefit from medical treatment with a probiotic but I will copy Dr. Sierra with this note Patient's had an opportunity ask Questions answered.? We will schedule procedure at his discretion. Copy: Dr. Joselo Barakat M.D., F.A.C.S. I have examined the patient and the H&P has been reviewed. There are no clinical changes since date of exam. Neal Barakat M.D., F.A.C.S.
--- NOTE | 2022-09-19 08:45 | COLBX_PTH ---
PATIENT: BETH VELEZ LOC: EN U#:[id number] AGE/SX: 72/M ROOM: RE09/19/[address]: Dr. Neal Barakat MD : 1950 BED: DIS: 09/19/2022 SPEC #: [id number] RECD: 09/19/22 10:03 STATUS: VIBHA ZAFAR #: [id number] LYNDA: 09/19/22 08:[address]: Neal Barakat DEPT: SURGICAL PATHOLOGY RECD BY: Liberty Brady ENTERED: 09/19/22 10:35 SP TYPE: COLON BX OTHR DR: Dr. Joselo Sierra MD Tissues: A - COLON BIOPSY B - Descending colon Procedures: Surgery Specimen Level IV HEADER OPERATION: Colonoscopy (MAC) with biopsies PRE-OP DIAGNOSIS: Diarrhea TISSUE SUBMITTED: A. Random colon biopsies, B. Descending colon polyp biopsy MICROSCOPIC DIAGNOSIS A. Random colon biopsies: Fragments of colonic mucosa with rare pigment laden macrophages, suspicious for melanosis coli. B. Descending colon polyp, biopsy: Fragments of tubular adenoma. /EDNA 09/20/22 MICROSCOPIC DESCRIPTION Slides are reviewed. GROSS DESCRIPTION A. Received is one container labeled with the patient name and designated random colon. The specimen consists of The specimen consists of multiple irregular fragments of light peralta soft tissue that in aggregate measure 1.5 x 0.5 x 0.1 cm. The specimen is totally submitted in one cassette. B. Received is one container labeled with the patient name and designated descending colon. The specimen consists of The specimen consists of multiple irregular fragments of light peralta soft tissue that in aggregate measure 1.5 x 0.5 x 0.1 cm. The specimen is totally submitted in one cassette. /EDNA:cc 09/19/2022 TC:1 [facility]: [id number] x2
--- NOTE | 2022-09-19 09:14 | OP.COLON_ITS ---
Patient Name: Jair Gardner Procedure Date: 09/19/2022 8:47 AM Date of : 1950 Age: 72 Procedure: Colonoscopy Indications: Chronic diarrhea Providers: Neal Barakat MD Medicines: See the Anesthesia note for documentation of the administered medications Patient Profile: Last Colonoscopy: date unknown. Complications: No immediate complications. Procedure: Pre-Anesthesia Assessment: - Prior to the procedure, a History and Physical was performed, and patient medications and allergies were reviewed. The patient's tolerance of previous anesthesia was also reviewed. The risks and benefits of the procedure and the sedation options and risks were discussed with the patient. All questions were answered, and informed consent was obtained. Prior Anticoagulants: The patient has taken no previous anticoagulant or antiplatelet agents. ASA Grade Assessment: II - A patient with mild systemic disease. After reviewing the risks and benefits, the patient was deemed in satisfactory condition to undergo the procedure. After I obtained informed consent, the scope was passed under direct vision. Throughout the procedure, the patient's blood pressure, pulse, and oxygen saturations were monitored continuously. The pediatric colonoscope was introduced through the anus and advanced to the cecum, identified by appendiceal orifice and ileocecal valve. The colonoscopy was performed without difficulty. The patient tolerated the procedure well. The quality of the bowel preparation was good. The ileocecal valve and the appendiceal orifice were photographed. Scope In: 8:52:21 AM Scope Withdrawal Time 0 hours 10 minutes 53 seconds Scope Out: 9:08:36 AM Total Procedure Duration Time 0 hours 16 minutes 15 seconds Findings: The digital rectal exam findings include loose anal tone. A 7 mm polyp was found in the mid descending colon. The polyp was sessile. The polyp was removed with a cold biopsy forceps. Resection and retrieval were complete. There was evidence of a prior end-to-end colo-colonic anastomosis in the distal sigmoid colon. This was patent and was characterized by healthy appearing mucosa. Biopsies for histology were taken with a cold forceps from the entire colon for evaluation of microscopic colitis. Impression: - Loose anal tone found on digital rectal exam. - One 7 mm polyp in the mid descending colon, removed with a cold biopsy forceps. Resected and retrieved. - Patent end-to-end colo-colonic anastomosis, characterized by healthy appearing mucosa. 10cm from anus - Biopsies were taken with a cold forceps from the entire colon for evaluation of microscopic colitis. Recommendation: - Discharge patient to home. - Resume previous diet. - Continue present medications. - Repeat colonoscopy in 5 years for surveillance. - Telephone my office for pathology results in 1 week. Procedure Code(s): --- Professional --- 98941, Colonoscopy, flexible; with biopsy, single or multiple Diagnosis Code(s): --- Professional --- D12.4, Benign neoplasm of descending colon Z98.0, Intestinal bypass and anastomosis status K52.9, Noninfective gastroenteritis and colitis, unspecified CPT copyright 2017 [employer]. All rights reserved. The codes documented in this report are preliminary and upon director account management review may be revised to meet current compliance requirements. Neal Barakat MD 09/19/2022 9:14:25 AM This report has been signed electronically. Number of Addenda: 0 Note Initiated On: 09/19/2022 8:47 AM
--- NOTE | 2022-09-19 09:15 | OP.CCLET_ITS ---
09/19/2022 Joselo Sierra Re : Colonoscopy procedure for Jair Gardner Dear Mariela This procedure was performed on Monday, September 19, 2022. My impressions and recommendations are as follows: Impressions : - Loose anal tone found on digital rectal exam. - One 7 mm polyp in the mid descending colon, removed with a cold biopsy forceps. Resected and retrieved. - Patent end-to-end colo-colonic anastomosis, characterized by healthy appearing mucosa. 10cm from anus - Biopsies were taken with a cold forceps from the entire colon for evaluation of microscopic colitis. Recommendations : - Discharge patient to home. - Resume previous diet. - Continue present medications. - Repeat colonoscopy in 5 years for surveillance. - Telephone my office for pathology results in 1 week. My findings are described in the full procedure note, which is enclosed. If I can be of further assistance, please feel free to contact me at Doctor phone number(s): Work: . Sincerely, Neal Barakat MD 09/19/2022 9:14:25 AM This report has been signed electronically.
[2022-09-19 09:51] LABS: Bedside Glucose 142 mg/dL (74-106)
== END 2022-09-19 09:57 | disposition home or self-care (01) ==
LOC: EN 07:56 → AC 07:56
PROVIDERS: PCP Family Medicine; Referring Provider Family Medicine; Visit Provider Surgery
PROC: 0DJD8ZZ Inspection of Lower Intestinal Tract, Via Natural or Artificial Opening Endoscopic (ICD-10-PCS; CPT 45378; principal; 2022-09-19 08:40)
DX: D12.4 Benign neoplasm of descending colon (principal); Z79.4 Long term (current) use of insulin; E11.9 Type 2 diabetes mellitus without complications; K63.89 Other specified diseases of intestine; G47.30 Sleep apnea, unspecified; I25.10 Atherosclerotic heart disease of native coronary artery without angina pectoris; I10 Essential (primary) hypertension; Z95.1 Presence of aortocoronary bypass graft; Z79.82 Long term (current) use of aspirin; Z79.899 Other long term (current) drug therapy; Z79.84 Long term (current) use of oral hypoglycemic drugs; Z86.010 Personal history of colon polyps; Z85.038 Personal history of other malignant neoplasm of large intestine; Z87.891 Personal history of nicotine dependence; Z98.0 Intestinal bypass and anastomosis status
CPT/HCPCS: 45380; 82962; 88305; J7120; J2405

== ENCOUNTER → 2022-11-20 | Outpatient (CLI) | payer MEDICARE, OTHER, SELFPAY ==
[2022-11-20 07:48] LABS: AST(SGOT) 25 U/L (15-37); Alanine Aminotransfer ALT/SGPT 46 U/L (16-61); Albumin, Serum 3.5 g/dL (3.2-5.0); Alkaline Phosphatase 104 U/L (45-117); Cholesterol 135 mg/dL (200); Globulin 3.9 g/dL (2.2-4.2); High Density Lipoprotein 45 mg/dL; Protein, Total 7.4 g/dL (6.4-8.2); Triglycerides 168 mg/dL; Very Low Density Lipoprotein 34 mg/dL (5-40)
== END | disposition home or self-care (01) ==
LOC: LAB 07:02
PROVIDERS: PCP Family Medicine; Referring Provider Internal Medicine Cardiovascular Disease; Visit Provider Internal Medicine Cardiovascular Disease
DX: E78.00 Pure hypercholesterolemia, unspecified (principal)
CPT/HCPCS: 36415; 80061; 80076

== ENCOUNTER → 2023-09-28 | Outpatient (CLI) | payer MEDICARE, OTHER, SELFPAY ==
[2023-09-28 10:46] LABS: Cholesterol 137 mg/dL (200); High Density Lipoprotein 43 mg/dL; Triglycerides 148 mg/dL; Very Low Density Lipoprotein 30 mg/dL (5-40)
[2023-09-28 11:10] LABS: Vitamin B12 355 pg/mL (211-911); Vitamin D,25 Hydroxy 71.3 ng/mL
[2023-09-28 11:15] LABS: ALB/GLOB Ratio 0.9 RATIO (0.9-2.4); AST(SGOT) 25 U/L (15-37); Alanine Aminotransfer ALT/SGPT 44 U/L (16-61); Albumin, Serum 3.5 g/dL (3.2-5.0); Alkaline Phosphatase 147 U/L (45-117); Anion Gap 5 (5-15); BUN 23 mg/dL (7-18); BUN/Creat Ratio 19.2 RATIO (10-20); Bilirubin, Direct 0.15 mg/dL (0.00-0.30); Calcium,Total 9.3 mg/dL (8.5-10.1); Chloride 108 mmol/L (98-107); EST Glomerular Filtration Rate 63 mL/min (>60); Est Glom Filt Rate - Afr Amer 76 mL/min (>60); Globulin 3.8 g/dL (2.2-4.2); Glucose 115 mg/dL (74-106); Potassium 4.5 mmol/L (3.5-5.1); Protein, Total 7.3 g/dL (6.4-8.2); Sodium Level 138 mmol/L (136-145)
== END | disposition home or self-care (01) ==
LOC: MTLAB 08:35
PROVIDERS: Internal Medicine Cardiovascular Disease; PCP Family Medicine; Referring Provider Family Medicine; Visit Provider Family Medicine
DX: E11.9 Type 2 diabetes mellitus without complications (principal); R41.3 Other amnesia; E55.9 Vitamin D deficiency, unspecified; Z13.21 Encounter for screening for nutritional disorder
CPT/HCPCS: 36415; 80053; 80061; 82248; 82306; 82607; 82746; 83036

== ENCOUNTER → 2024-02-12 | Outpatient (CLI) | payer MEDICARE, OTHER, SELFPAY ==
--- NOTE | 2024-02-12 12:54 | ECHOCS_ITS ---
Reason For Study: Nonrheumatic Aortic Stenosis Procedure This was a 2D Doppler, Color Flow transthoracic echocardiogram. The study was technically difficult. Contrast injection was performed. Exam performed in department. Left Ventricle Normal LV size. Left ventricular systolic function is normal. The left ventricular ejection fraction is 65 %. No regional wall motion abnormalities noted. Right Ventricle Normal RV size. Normal systolic function. Atria Normal left atrium. Normal right atrium. Mitral Valve Normal mitral valve. Tricuspid Valve Normal tricuspid valve. Aortic Valve Peak aortic valve gradient 98 mmHg. Mean aortic valve gradient 60 mmHg. Severe aortic stenosis. Bioprosthetic aortic valve. Pulmonic Valve Normal pulmonic valve. Great Vessels Normal aortic root. The pulmonary artery is normal size. Inferior vena cava collapse with respiration. Pericardium/Pleural No pericardial effusion. Medication 22 gauge I.V. with prn adaptor inserted into right arm. Diluted definity 1.5ml given slow IV push to enhance endocardial definition. MMode/2D Measurements & Calculations LVIDd: 4.7 cm IVSd: 1.3 cm LVOT diam: 2.0 cm LVIDs: 3.2 cm LVPWd: 1.1 cm FS: 31.2 % LVOT area: 3.1 cm2 Ao root diam: 3.8 cm LAV(MOD-bp): 52.4 ml Aortic Valve Planimetry: 0.70 cm2 ACS: 0.77 cm LAV(MOD-bp) Indexed: 25.2 ml/m2 LAV(MOD-sp2): 55.0 ml LAV(MOD-sp4): 46.8 ml LA A4 area: 17.4 cm2 RA A4 area: 16.5 cm2 Time Measurements MV dec time: 0.23 sec Doppler Measurements & Calculations MV E max ian: 75.7 cm/sec Lat Peak E' Ian: 8.8 cm/sec Med Peak E' Ian: 6.6 cm/sec MV A max ian: 95.7 cm/sec E/E' lat: 8.6 E/E' med: 11.5 MV E/A: 0.79 MV V2 max: 107.1 cm/sec MV P1/2t max ian: 90.8 cm/sec Ao V2 max: 495.3 cm/sec MV max P.6 mmHg MV P1/2t: 80.9 msec Ao max P.2 mmHg MV V2 mean: 53.1 cm/sec MV dec slope: 328.9 cm/sec2 Ao V2 mean: 368.6 cm/sec MV mean P.4 mmHg Ao mean P.2 mmHg MV V2 VTI: 34.7 cm MVA(P1/2t): 2.7 cm2 Ao V2 VTI: 114.3 cm MVA(VTI): 2.5 cm2 AV (velocity ratio): 0.25 OSEAS(I,D): 0.77 cm2 OSEAS(V,D): 0.82 cm2 LV V1 max: 132.6 cm/sec SV(LVOT): 88.1 ml PA V2 max: 141.6 cm/sec LV V1 max P.1 mmHg PA max PG (full): 4.9 mmHg LV V1 mean P.7 mmHg PA V2 mean: 83.6 cm/sec LV V1 mean: 89.7 cm/sec PA mean PG (full): 1.7 mmHg LV V1 VTI: 28.7 cm ECHO/Echo Complete W/ Contrast Interpretation Summary Normal LV size. Left ventricular systolic function is normal. The left ventricular ejection fraction is 65 %. Mean aortic valve gradient 60 mmHg. Severe aortic stenosis. Bioprosthetic aortic valve. Ordering Physician: Ryder Contreras Referring Physician: Paul Bush Performed By: Nathanael Salazar RCS
== END | disposition home or self-care (01) ==
PROVIDERS: PCP Family Medicine; Referring Provider Internal Medicine Cardiovascular Disease; Visit Provider Internal Medicine Cardiovascular Disease
DX: I35.2 Nonrheumatic aortic (valve) stenosis with insufficiency (principal)
CPT/HCPCS: 93306; Q9957; A4216; C8929

== ENCOUNTER → 2024-03-04 | Outpatient (CLI) | payer MEDICARE, OTHER, SELFPAY ==
--- NOTE | 2024-03-04 12:04 | ECHOTEE_ITS ---
Reason For Study: Assess AVR Medication JEN probe 6VT-D (SN [id number]) passed without difficulty. No complications were noted. Cetacaine Topical [place] given X4 orally. Versed 3 mg given slow IVP. Fentanyl 50 mcg given slow IVP. Performed a rapid injection of agitated mix of 9 cc saline and 1cc air to assess for atrial septal defect. Left Ventricle Normal LV size. Left ventricular systolic function is normal. The estimated ejection fraction is 55 %. No regional wall motion abnormalities noted. Right Ventricle Normal RV size. Normal systolic function. Atria Patent foramen ovale. Normal left atrium. No thrombus is detected in the left atrial appendage. Normal right atrium. Mitral Valve Normal mitral valve. Mild (1+) eccentric mitral valve insufficiency. Tricuspid Valve Normal tricuspid valve. Aortic Valve Peak aortic valve gradient 75 mmHg. Mean aortic valve gradient 46 mmHg. Severe bioprosthetic leaflet stenosis. There has been a significant change in increasing gradient compared to 4 years ago. Bioprosthetic aortic valve. The leaflet excursions appear to be limited with significant thickening at the bases. MMode/2D Measurements & Calculations LVOT diam: 2.0 cm LVOT area: 3.1 cm2 Doppler Measurements & Calculations Ao V2 max: 432.4 cm/sec LV V1 max: 140.6 cm/sec SV(LVOT): 97.9 ml Ao max P.9 mmHg LV V1 max P.9 mmHg Ao V2 mean: 322.2 cm/sec LV V1 mean P.3 mmHg Ao mean P.0 mmHg LV V1 mean: 96.3 cm/sec Ao V2 VTI: 98.2 cm LV V1 VTI: 32.0 cm AV (velocity ratio): 0.33 OSEAS(I,D): 1.00 cm2 OSEAS(V,D): 1.00 cm2 ECHO/Echo Transesophageal (JEN) Interpretation Summary Normal LV size. Left ventricular systolic function is normal. The estimated ejection fraction is 55 %. Severe bioprosthetic leaflet stenosis. There has been a significant change in i ncreasing gradient compared to 4 years ago. Bioprosthetic aortic valve. Mean aortic valve gradient 46 mmHg. Ordering Physician: Sheba Aguilar Referring Physician: Paul Bush Performed By: Opal Miller RDCS
[2024-03-04 16:10] LABS: Absolute Lymphocyte Count 2.03 X10^3/uL (0.83-4.51); Absolute Neutrophil Count 3.5 X10^3/uL (2.0-7.7); Basophil# 0.03 X10^3/uL; Basophil% 0.5 % (0-1); Eosinophils% 1.6 % (0-5); Hematocrit 50.1 % (40-54); Hemoglobin 16.5 g/dL (13.0-16.5); Lymphocyte # 2.03 X10^3/ul (0.83-4.51); Lymphocyte % 32.9 % (19-41); Mean Corp Hgb Conc 32.9 g/dL (32-36); Mean Corpuscular Hgb 33.1 pg (27.0-32.0); Mean Corpuscular Volume 100.6 fL (80-94); Mean Platelet Vol. 9.6 fl (6.2-12.0); Monocyte# 0.51 X10^3/uL; Monocyte% 8.3 % (0-10); NRBC Flagged by Analyzer 0 % (0-5); Neutrophil # 3.49 X10^3/uL (2.7-7.7); Neutrophil % 56.5 % (47-70); Platelet Count 166 K/mm3 (150-450); RBC Distribution Width CV 12.6 % (11.6-14.6); RBC Distribution Width SD 47.1 fl (35.1-43.9); Red Blood Count 4.98 M/mm3 (4.6-6.2); White Blood Count 6.2 K/mm3 (4.4-11.0)
[2024-03-04 16:39] LABS: Anion Gap 4 (5-15); BUN 17 mg/dL (7-18); BUN/Creat Ratio 20.3 RATIO (10-20); Calcium,Total 9.2 mg/dL (8.5-10.1); Chloride 108 mmol/L (98-107); Creatinine, Serum 0.84 mg/dL (0.70-1.30); EST Glomerular Filtration Rate 96 mL/min (>60); Est Glom Filt Rate - Afr Amer 116 mL/min (>60); Glucose 124 mg/dL (74-106); Potassium 4.5 mmol/L (3.5-5.1); Sodium Level 140 mmol/L (136-145)
== END | disposition home or self-care (01) ==
PROVIDERS: Internal Medicine Cardiovascular Disease; PCP Family Medicine; Referring Provider Physician Assistant Medical; Visit Provider Physician Assistant Medical
DX: I35.2 Nonrheumatic aortic (valve) stenosis with insufficiency (principal); Z95.3 Presence of xenogenic heart valve; Z95.1 Presence of aortocoronary bypass graft
CPT/HCPCS: 36415; 80048; 85025; 93312; 93320; 93325; J7040; A4216

== ENCOUNTER 2024-03-07 07:03 | Day surgery (SDC) | payer MEDICARE, OTHER, SELFPAY ==
--- NOTE | 2024-03-05 16:54 | HP.PCM_ITS ---
History and Physical Date of Admission: 03/07/24 BETH VELEZ, is a 74 M who presents for a cardiac catheterization. He is a gentleman with a history of hypertension, diabetes, asymptomatic moderate-severe aortic stenosis. He underwent a cardiac catheterization which demonstrated high-grade stenosis noted in the LAD diagonal vessel. He was also confirmed to have severe aortic stenosis. He was seen by the group at [facility] and it was determined that they should proceed with coronary artery revascularization with a left internal mammary artery to the left anterior descending artery, saphenous vein graft to the first diagonal vessel, surgical aortic valve replacement with a [address] Jose's bioprosthetic valve in August 2019. He has done well since. His most recent echocardiogram from December 2019 demonstrates an ejection fraction of 55%, a peak mean gradient of 21 over 10 mmHg and an aortic valve area of 1.6 cm? and stable. His blood pressures have been much better now. He denies chest, arm, jaw, or neck discomfort. His exercise tolerance is stable. He continues with shortness of breath with activity that he attributes to his weight. This is not new or worsening. He denies symptoms of palpitations, lightheadedness, dizziness, near syncope, or syncopal episodes. He denies bilateral lower extremity edema or claudication issues. He states chronic right leg edema from previous knee surgery. He denies orthopnea, PND, blood in urine, blood in stool, myalgia, or unexplainable fatigue. He states walking twice a day at a mile per walk. This takes about 20 minutes. Intake Vital Signs See EMR Allergies See EMR Medications See EMR Ejection fraction %: 55 to 59 PFSH Medical History Abnormal electrocardiogram [ECG] [EKG] Alcohol use Arthritis Atherosclerosis of coronary artery of [place] heart without angina pectoris Cardiology follow-up encounter DDD (degenerative disc disease) Essential (primary) hypertension Former smoker History of colon cancer History of colonic polyps History of echocardiogram History of kidney stones History of kidney stones History of stress test Hyperlipidemia Insulin dependent diabetes mellitus Nonrheumatic aortic (valve) stenosis with insufficiency Obesity Sleep apnea Type 2 diabetes mellitus Wears hearing aid Surgical History H/O coronary artery bypass surgery (08/20/19) History of aortic valve replacement with bioprosthetic valve (08/20/19) History of colon resection History of colonoscopy History of knee replacement procedure of right knee History of left heart catheterization (07/21/19) History of lithotripsy History of lumbar laminectomy for spinal cord decompression History of tonsillectomy Hx of cholecystectomy Family History Mother Diabetes CVA (cerebral vascular accident) Social History Smoking Status: Former smoker alcohol intake: current alcohol intake frequency: 0-2 drinks per day Alcohol type: beer substance use type: does not use caffeine: Yes Type: coffee what type of physical activity do you participate in: none seatbelt use: always do you feel safe at home: Yes ROS Const Const: Positive for difficulty sleeping (doesn't sleep through the night; refuses CPAP); Negative for fatigue, weakness, headache(s) or daytime sleepiness ENT ENT: Negative for headache(s), dizziness or Nosebleed/epistaxis Cardio Chest Pain: No Palpitations: No Edema: None Resp Respiratory: Negative for SOB with activity, SOB at rest, SOB orthopnea\SOB lying down or Cough GI GI: Negative nausea, vomiting or heartburn Neuro Neuro: Negative for dizziness, lightheadedness, near syncope, headache(s) or weakness Endo Endo: Negative for fatigue Cardiology Exam Const Appearance: cooperative, healthy appearing, comfortable and no acute distress Nutritional Appearance: well nourished and obese Orientation: alert, awake and oriented x3 Head Head: normal to inspection Ears: hearing grossly normal bilaterally Nose: external nose normal Face and Sinus: face symmetric Mouth: oral mucosae normal Eyes General: appearance normal, both eyes and all related structures Eyelids: eyelids normal EOM: EOM intact bilaterally Neck Neck: normal visual inspection and no JVD Carotids: normal carotid upstroke Chest Chest inspection: normal inspection of the chest, symmetric chest movement and normal respiratory effort; Negative cough Auscultation: Bilateral: Clear to Auscultation Cardio Rate: regular rate Rhythm: regular rhythm Heart sounds: S1 normal, S2 normal and murmur; Negative rub or gallop Murmur: Grade 1/6, soft and TEQUILA loudest primary aortic area GI GI: normal to inspection and obese Neuro General: patient alert, patient awake, patient oriented x3 and CN's II-XI intact bilaterally Skin Skin: no rashes or lesions noted Extremities Pulses: Normal: Right Posterior Tibial Pulse, Left Posterior Tibial Pulse, Right Radial Pulse and Left Radial Pulse Lower Extremity Edema: None: Bilateral Psych Psychological: normal affect Supplemental Info Supplemental Information Echocardiogram from 12/10/2019: Interpretation Summary Normal LV size. Left ventricular systolic function is normal. Bioprosthetic aortic valve. Mild tricuspid valve insufficiency. The estimated ejection fraction is 55 %. Peak aortic valve gradient 21 mmHg. Mean aortic valve gradient 10 mmHg. Cardiac catheterization from 07/31/2019: CONCLUSIONS Coronary artery disease involving the diagonal vessel and LAD as well as severe aortic stenosis. Mild aortic regurgitation is also noted. CORONARY ANGIOGRAPHY DOMINANCE: Right Dominant LEFT HEART ASSESSMENT LEFT MAIN: Angiographically normal LEFT ANTERIOR DESCENDING ARTERY: DISTAL LAD: 70 % Stenosis DIAGONAL 1: Proximal - 80 % Stenosis CIRCUMFLEX ARTERY: Mild luminal irregularities less than 30% RIGHT CORONARY ARTERY: Mild luminal irregularities VALVE FINDINGS: Aortic Valve Stenosis - severe Aortic Valve Calcification - severe Aortic Valve Insufficiency: Grade 2 AORTIC ROOT: Dilated Carotid duplex ultrasound from 07/18/2019: Interpretation Summary Minimal plague at the proximal right internal carotid <50% stenosis right internal carotid <50% stenosis right external carotid Calcific plague with shadowing left distal common carotid, proximal left internal and external carotids <50% stenosis left internal carotid <50% stenosis left external carotid Patent and antegrade vertebrals bilaterally with <50% stenosis. Assessment and Plan Assessment and Plan (1) History of aortic valve replacement with bioprosthetic valve: Status: Resolved Comment: AVR w/ a [address] Jose Bioprosthesis 08/20/19 Plan: Patient underwent a TTE on 03/04/2024 which demonstrated an ejection fraction of 55%, and severe bioprosthetic leaflet stenosis. His mean aortic valve gradient was 46 mmHg. Would like to proceed with a cardiac catheterization to further assess this. Depending on results, further recommendations will be made.
--- NOTE | 2024-03-06 09:05 | RAD_ITS ---
STUDY: X-RAY CHEST REASON FOR EXAM: Male, 74 years old. cad TECHNIQUE: PA and lateral views of the chest. COMPARISON: None. FINDINGS: Status post median sternotomy. The lungs are clear and expanded. There is no demonstrated pleural abnormality. Normal size heart. Normal mediastinum and dafne. Normal visualized pulmonary arteries. Normal visualized aortic arch and descending thoracic aorta. Normal visualized thoracic spine. Normal visualized ribs, clavicles, and shoulders. There is no demonstrated abnormality of the visualized soft tissue structures of the upper abdomen. RAD/Chest PA and Lateral IMPRESSION: No active disease. Electronically Signed: Amari See MD at 8:26 EDT ,
--- NOTE | 2024-03-07 08:59 | CL.D_ITS ---
Patient Name: BETH VELEZ Study Date: 03/07/2024 Performing: Ryder Contreras MD Ht: 67 inches 170.18 cm : 1950 Wt: lbs kg Age: 74 Gender: male BSA: PROCEDURE(S) PERFORMED [id number])LHC/COR/CABG CLINICAL PROFILE AND INDICATIONS Indications: Valvular Disease Heart Failure: None Stress/Imaging Stress/Image Study Performed: No CAD Presentations: Symptom unlikely to be ischemic. CONCLUSIONS Patent bypass grafts with MORENO to LAD saphenous vein graft to diagonal branch and nonobstructive circumflex artery and right coronary artery. Severe aortic bioprosthetic stenosis present. RECOMMENDATIONS Will refer to structural heart disease center for reconsideration for aortic valve surgery or TAVR. DESCRIPTION OF PROCEDURE The patient arrived to the procedure lab. The risks and benefits of the procedure as well as a full description of our services here and current unavailability of surgical backup were fully explained to the patient and/or their significant other prior to the catheterization. The Timeout was completed, verifying the correct patient and procedure. The patient's procedural site was prepped and draped in the usual fashion. Local anesthetic was given subcutaneously to left radial region with Lidocaine 2%. Using a modified Seldinger technique, arterial access was obtained via the left radial artery, a 6Fr sheath was inserted. Left internal mammary artery graft to the LAD selective angiography was performed in multiple views using a 5 Fr. IM catheter. Left Coronary Artery selective angiography was performed in multiple views using a 5 Fr. JL4 catheter. Right Coronary Artery selective angiography was then performed in multiple views using a 5 Fr. 3DRC (Marino) catheter. Saphenous Vein graft to the DIAG 1 selective angiography was performed in multiple views using a 5 Fr. JR 5 catheter.The arterial sheath was pulled and a TR Band was applied for hemostasis 6 ml of air CORONARY ANGIOGRAPHY DOMINANCE: Right Dominant LEFT HEART ASSESSMENT Left Ventricular Ejection Fraction: by Echo 60 % Normal LV wall motion Normal Left Ventricular systolic function LEFT MAIN: Angiographically normal LEFT ANTERIOR DESCENDING ARTERY: PROX LAD: is occluded CIRCUMFLEX ARTERY: Moderate luminal irregularities up to 50% RIGHT CORONARY ARTERY: Mild luminal irregularities less than 30% GRAFTS: MORENO graft to the Mid LAD is patent Saphenous Vein graft to the 1st Diagonal is patent VALVE FINDINGS: Aortic Valve Stenosis - severe COMPLICATIONS No Complications PROCEDURE MEDICATIONS Versed 1 mg IV Fentanyl 50 mcg IV Versed 1 mg IV Oxygen: 2 L/min via nasal cannula Heparin given IA 03/07/2024 08:28:09 Verapamil 2.5mg, 3000 units of Heparin given IA 03/07/2024 08:28:09 SUMMARY OF HEMODYNAMIC DATA Time AIR REST ECG 07:24:25 ECG 08:05:44 AO 120/73 (95) SA 08:37:08 AO 129/78 (101) 08:41:00 AO 128/73 (96) 08:46:38 AO 121/72 (95) 08:48:32 Signed By Ryder Contreras MD On 03/07/2024 09:00:35 Signed By Ryder Contreras MD On 03/07/2024 08:59:03 Ryder Contreras MD
== END 2024-03-07 10:40 | disposition home or self-care (01) ==
LOC: CLSP 07:04
PROVIDERS: PCP Family Medicine; Referring Provider Internal Medicine Cardiovascular Disease; Visit Provider Internal Medicine Cardiovascular Disease
DX: I25.10 Atherosclerotic heart disease of native coronary artery without angina pectoris (principal); E11.9 Type 2 diabetes mellitus without complications; Z79.4 Long term (current) use of insulin; I10 Essential (primary) hypertension; G47.30 Sleep apnea, unspecified; E66.9 Obesity, unspecified; Z87.891 Personal history of nicotine dependence; Z79.82 Long term (current) use of aspirin; Z79.899 Other long term (current) drug therapy; Z79.84 Long term (current) use of oral hypoglycemic drugs; Z95.2 Presence of prosthetic heart valve; Z95.1 Presence of aortocoronary bypass graft
CPT/HCPCS: 71046; 93005; 93455; 99152; 99153; C1894; J7040; Q9967; C1769

== ENCOUNTER → 2024-07-18 | Outpatient (CLI) | payer MEDICARE, OTHER, SELFPAY ==
--- NOTE | 2024-07-18 11:14 | RAD_ITS ---
STUDY: X-RAY CHEST REASON FOR EXAM: Male, 74 years old. Wheezing. TECHNIQUE: Frontal and lateral views of the chest. COMPARISON: March 06, 2024 FINDINGS: Interval development of right pleural effusion with minimal compression atelectasis of the right middle and lower lobes. There is no demonstrated pleural abnormality. Stable cardiomegaly, sternotomy wires and valve replacement changes. Normal mediastinum and dafne. Normal visualized pulmonary arteries. Aortic tortuosity unchanged Mild thoracic spondylosis unaltered. Normal visualized ribs, clavicles, and shoulders. No abnormality of the visualized soft tissue structures of the upper abdomen. RAD/Chest PA and Lateral IMPRESSION: Cardiomegaly with development of right pleural effusion. No emergent finding. Electronically Signed: Micheal Paige MD at 11:34 EDT ,
== END | disposition home or self-care (01) ==
LOC: MTRAD 11:14
PROVIDERS: PCP Family Medicine; Referring Provider Family Medicine; Visit Provider Family Medicine
DX: R06.2 Wheezing (principal)
CPT/HCPCS: 71046

== ENCOUNTER → 2024-07-28 | Outpatient (CLI) | payer MEDICARE, OTHER, SELFPAY ==
[2024-07-28 10:17] LABS: Hematocrit 41.3 % (40-54); Hemoglobin 13.2 g/dL (13.0-16.5); Mean Corpuscular Hgb 32.3 pg (27.0-32.0); Mean Platelet Vol. 9.5 fl (6.2-12.0); Platelet Count 319 K/mm3 (150-450); RBC Distribution Width CV 12.7 % (11.6-14.6); RBC Distribution Width SD 47.6 fl (35.1-43.9); Red Blood Count 4.09 M/mm3 (4.6-6.2); White Blood Count 7.1 K/mm3 (4.4-11.0)
[2024-07-28 10:33] LABS: Vitamin D,25 Hydroxy 55.5 ng/mL
== END | disposition home or self-care (01) ==
LOC: MFPLAB 08:50
PROVIDERS: PCP Family Medicine; Visit Provider Family Medicine
DX: R53.83 Other fatigue (principal)
CPT/HCPCS: 36415; 82306; 84443; 85027

== ENCOUNTER → 2024-07-31 | Outpatient (CLI) | payer MEDICARE, OTHER, SELFPAY ==
[2024-07-31 11:52] LABS: BNP,B-Type NATRIURETIC PEPTIDE 42.7 pg/mL (0-100)
[2024-07-31 12:05] LABS: Anion Gap 3 (5-15); BUN 17 mg/dL (7-18); Chloride 103 mmol/L (98-107); Creatinine, Serum 0.94 mg/dL (0.70-1.30); EST Glomerular Filtration Rate 83 mL/min (>60); Est Glom Filt Rate - Afr Amer 101 mL/min (>60); Glucose 204 mg/dL (74-106); Potassium 4.4 mmol/L (3.5-5.1); Sodium Level 137 mmol/L (136-145)
[2024-07-31 12:09] LABS: AST(SGOT) 16 U/L (15-37); Alanine Aminotransfer ALT/SGPT 25 U/L (16-61); Albumin, Serum 3.2 g/dL (3.2-5.0); Alkaline Phosphatase 212 U/L (45-117); Bilirubin, Direct 0.13 mg/dL (0.00-0.30); Cholesterol 127 mg/dL (200); Globulin 4.4 g/dL (2.2-4.2); High Density Lipoprotein 41 mg/dL; Protein, Total 7.6 g/dL (6.4-8.2); Triglycerides 236 mg/dL; Very Low Density Lipoprotein 47 mg/dL (5-40)
== END | disposition home or self-care (01) ==
PROVIDERS: PCP Family Medicine; Referring Provider Nurse Practitioner Family; Visit Provider Nurse Practitioner Family
DX: I10 Essential (primary) hypertension (principal); E78.2 Mixed hyperlipidemia; Z95.3 Presence of xenogenic heart valve; Z95.1 Presence of aortocoronary bypass graft; R06.09 Other forms of dyspnea
CPT/HCPCS: 36415; 80048; 80061; 80076; 83880

== ENCOUNTER → 2024-08-05 | Outpatient (CLI) | payer MEDICARE, OTHER, SELFPAY | END | disposition home or self-care (01) | PROVIDERS: PCP Family Medicine; Referring Provider Family Medicine; Visit Provider Family Medicine | DX: R06.2 Wheezing (principal) | CPT/HCPCS: 94060; 94726; 94729 ==

== ENCOUNTER → 2024-08-11 | Outpatient (CLI) | payer MEDICARE, OTHER, SELFPAY ==
--- NOTE | 2024-08-11 14:33 | CR.HP_ITS ---
CR - History & Physical General Arrival date:: 08/11/24 Arrival time:: 14:33 Date of Referral:: 07/31/24 Date of CR Evaluation:: 08/11/24 Referring Physician: Dr. Atkinson Primary Diagnosis: heart valve replacement History of Present Cardiac Event Onset Date Heart valve replacement or repair:: Yes (onset 06/23/24) Medications Ambulatory Orders ?Medication ?Instructions ?Recorded folic acid 400 mcg tablet 400 mcg PO DAILY SUPPLEMENT 11/28/17 cholecalciferol (vitamin D3) 50 2,000 unit PO DAILY 07/17/19 mcg (2,000 unit) capsule multivitamin 1 cap PO DAILY 07/17/19 aspirin 81 mg tablet,delayed 81 mg PO DAILY 09/29/19 release (Adult Aspirin Regimen) insulin glargine 100 unit/mL 35 unit subcut DAILY 06/22/22 subcutaneous solution (Lantus U-100 Insulin) metformin 500 mg tablet 500 mg PO BID 11/17/22 flash glucose scanning reader #1 ea 01/15/23 (FreeStyle Kang 2 [place]) empagliflozin 25 mg tablet 25 mg PO DAILY 01/08/24 (Jardiance) insulin aspart U-100 100 unit/mL 14 unit subcut TID 01/08/24 subcutaneous solution (Novolog U-100 Insulin aspart) flash glucose sensor (FreeStyle #2 ea 02/20/24 Kang 2 Sensor kit) atorvastatin 40 mg tablet (Lipitor) 40 mg PO QHS CHOLESTEROL #90 tabs 06/16/24 amlodipine 10 mg tablet 10 mg PO DAILY #90 tabs 07/31/24 metoprolol succinate 100 mg 100 mg PO QDAY #90 tabs 07/31/24 tablet,extended release 24 hr Allergies Allergies No Known Allergies Allergy (Verified 07/31/24 10:09) Sleep Disorder Evaluation Hx of Sleep Apnea: Yes Do you snore loudly (louder than talking or can be heard through closed doors)?: Yes Do you often feel tired/ fatigued/ sleepy during daytime?: Yes Has anyone observed you stop breathing during sleep?: No History of Hypertension (for STOP score): Yes STOP Results: Positive Advanced Directives Advanced Directives Power of Park Keeper: Yes Living Will: Yes Advance Directives Information Provided: Yes Advance Directives on File: No DNR Order?:: No Past Medical History Covid-19 Screening Physicial Symptoms Other Clinical Concerns Exposure Risk Pertinent Comorbidities 65 years or older:: Yes Has a serious heart condition:: Yes Diabetic:: Yes Past Medical Illness Past Medical History Wears hearing aid Z97.4 Alcohol use Z78.9 2-3 BEERS PER DAY Insulin dependent diabetes mellitus Arthritis M19.90 History of kidney stones Z87.442 Former smoker Z87.891 QUIT BEFORE 1979 Sleep apnea G47.30 NO MACHINE History of stress test Z92.89 2019 PRIOR TO HEART SURGERY History of echocardiogram Z92.89 12/10/2019 [facility] Cardiology follow-up encounter Z09 DR ATKINSON, MOST RECENT VISIT 05/18/22 - SEES Q6MOS DDD (degenerative disc disease) Obesity E66.9 History of colonic polyps Z86.010 Atherosclerosis of coronary artery of [place] heart without angina pectoris I25.10 Nonrheumatic aortic (valve) stenosis with insufficiency I35.2 Essential (primary) hypertension I10 Abnormal electrocardiogram [ECG] [EKG] R94.31 History of kidney stones Z87.442 History of colon cancer Z85.038 Hyperlipidemia E78.5 Type 2 diabetes mellitus E11.9 Past Surgical History Past Surgical History (Updated 07/31/24 @ 12:46 by Zak aGlicia NP, [employer]) S/P AVR (aortic valve replacement) Z95.2 CCF. AVR(Trifecta)/CABGx2(MORENO-LAD); SVG-D1 History of lumbar laminectomy for spinal cord decompression Z98.890 History of knee replacement procedure of right knee Z96.651 History of colonoscopy Z98.890 History of lithotripsy Z98.890 History of aortic valve replacement with bioprosthetic valve (08/20/19) Z95.3 AVR w/ a [address] [place] [place] Bioprosthesis 08/20/19; Redo aortic valve replacement with a #25 Rodriguez valve along with Vladislav's root enlargement on 06/23/2024; H/O coronary artery bypass surgery (08/20/19) Z95.1 CABG x 2 MORENO-LAD, SVG-D1 and AVR w/ a [address] Jose Bioprosthesis 08/20/19 History of left heart catheterization (09/16/19) Z98.890 History of colon resection Z90.49 Hx of cholecystectomy Z98.890, Z90.49 History of tonsillectomy Z98.890, Z90.89 Surgical History: cholecystectomy and colectomy Family History Summary Family History Mother Diabetes CVA (cerebral vascular accident) Social History Smoking History Smoking Status: Former smoker Years Smokin Packs Smoked per Day: 0.5 (stopped 40 years ago) Alcohol Use Alcohol Usage: Yes (3 cans a day) Occupation Occupation (List type of work in comments):: Retired Hobbies, Recreation, Social Activities Hobbies: Other (gonzalez) Recreational Activities: I am able to engage in a few activities Social Environment Status Marital Status: Current Living Arrangements Living Environment:: Spouse Children How many children do you have?: 1 Do any of your children live nearby?: Yes Safety Do you feel safe in your surroundings?: Yes Assistance Do you need any assistance at home?: no Review of Systems Review of Systems Hints Review of Present Symptoms: Reports Shortness of Breath with Exertion, Operative Discomfort, Fatigue, Appetite - Normal and Sleep - Normal; Denies Shortness of Breath at Rest, PVD, Angina, Wound Healing, Dizziness/Lightheadedness, Heart Arrhythmia/Irregularities, Appetite - Special Diet or Sexual Changes Pain Is Patient Pain Free?: No Pain Location: lower extremity Pain Level: 8/10 Risk Factor Assessment Chief Complaint Chief Complaint: heart valve replacement Vital Signs Pulse Ox: 95 Blood Pressure: 113/73 Pulse Pulse Rate: 85 Hypertension How long have you been treated?: 20 years Blood Pressure Sitting - Right Arm: 113/73 Diabetes Diabetic History: Type II Nutrition Referral for Diabetes: No Obesity Height: 5 ft 7 in Weight:: 204 lb Weight in Pounds: 204.0 lbs Body Mass Index (BMI): 31.9 Nutritional Referral for Obesity: No Physical Inactivity Physical Inactivity: Reg Exercise 30 min/day Risk Stratification Risk Guidelines: Moderate Risk: Risk Factor for Smoking, Risk Factor for Obesity, Risk Factor for Sedentary Lifestyle and Risk Factor for Depression and Highest Risk: Risk Factor for Dyslipidemia, Risk Factor for Diabetes and Risk Factor for Hypertension For Smoking Smoking Risk Guidelines For Dyslipidemia Dyslipidemia Risk Guidelines For Diabetes Mellitus Diabetes Risk Guidelines For Obesity/Overweight Obesity/Overweight Risk Guidelines For Hypertension Hypertension Risk Guidelines For Sedentary Lifestyle Sedentary Lifestyle Risk Guidelines For Depression Depression Risk Guidelines Family History Family History Mother Diabetes CVA (cerebral vascular accident) Motivation Motivation to Participate On a scale of 1 to 10, how prepared are you to commit to attending program?: 5 What do you see as barriers to successfully being able to complete the program?: nothing What do you see as the benefits of succesfully completing the program? In other words, what do you hope to get out of participating in the program?: longer life Are there issues you are dealing with that will interfere with completing the program?: no Do you have a spouse or signficant other, family or friends who will help support you to complete the program?: yes
[2024-08-11 14:41] VITALS: BP 113/73; PULSE 85; O2SAT 95
--- NOTE | 2024-08-11 14:41 | PCM.CR.ITP ---
Diagnosis General Information Admitting Diagnosis: heart valve replacement Personal Learning Style:: Audio/Visual Barriers to Learning: No Barriers Stage of change r/t lifestyle modifications:: Contemplation Gave educational material for:: Treating Heart Disease, How The Heart Works, What it means to have Heart Disease, How Coronary Artery Disease is Diagnosed, Heart Procedures, What Heart Medications Do, Risk Factors & Modifications, Living an Active Life, Nutrition, Emotions & Heart Disease, Stress Management & Relaxation and Sleep Disorders & Heart Disease Education/Goals Cardiac Rehabilitation Goals Personal Goals: Initial Assessment: Improve energy level, Get back to work, or to resume activities faster and Improve muscle strength and endurance Scale for measuring improvement of personal goals Diagnosis & Disease Process Outcomes/Goals: Pt IDs own risk factors & lifestyle modifications by Session 10, Verbalizes symptoms of angina & response by session 3., Pt independently manages and Other Additional Outcomes/Goals: Plan/Interventions: Assist Pt to ID & engage in lifestyle modification to reduce CVD risk, Instruct on individual risk factors, Review symptoms of angina & emergency actions, Review secondary diagnosis & identify educational needs. and Other see comment 30 day Reassessments:: Not Met 30 day Reassessments:: Not Met 30 day Reassessments:: Not Met 30 day Reassessments:: Not Met Safety Referral to Physical Therapy: No Referral to [facility] Case Management: No Fall Risk Assessed:: Yes Assistive Devices:: None Exercise - Initial Assessment Visit Date of Eval: 08/11/24 (initial eval ) Mets: Pre-: >3 METS for 30 minutes by discharge, >5 METS for 30 minutes by discharge, >7 METS for 30 minutes by discharge and Unable to meet goal due to: (see comment below) Physician Prescribed Exercise Modalities: Treadmill, Schwinn Airdyne AD-7, SciFit Stepper, [place] CaseFit Pro-II Ergometer and [place] CaseFit Lateral [place] Frequency: 2x/week for 18 weeks [36 sessions] and 3x/week for 12 weeks [36 sessions] Intensity: 60-80% of age predicted maximum heart rate reserve Duration: 30 - 45 minutes Current METSs:: 3 Target Heart Rate:: 88-110 Resting Blood Pressure: 113/73 EKG Type: NSR LBBB Outcomes & Goals Goals:: Verbalizes understanding of THR, RPE & goal METS by session 6, Documents in home exercise log/reports 30 min aerobic 5 day/wk by DC, Demonstrates accurate pulse taking by DC and Other additional outcome/goals: see below Intervention & Plan Exercise Program Goals: Instruct on personal THR & RPE, Instruct on MET level & personal MET goal, Show patient to take own pulse /validate performance until accurate, Instruct on home exercise and Other additional plan/int Physical Activity Home Exercise Physical Activity - Home Exercise: Safe Exercise, Warm-up, Self-monitoring, Cool-Down, Home Exercise > 30 min Daily and Sitting Time <3 hours/daily Outcomes & Goals Outcomes/Goals: Demonstrates correct Warm-up/exercise Cool-Down (S3) if = 2.5 METs, Verbalizes symptoms of exercise intolerance by Session 3 (S3), Demonstrate safe equipment use (S3) & follows exercise prescrition (6) and Other: See below Intervention & Plan Plan/Intervention: Instruct warm-up & cool-down if exercising at > 2 METs, Instruct on symptoms of exercise intolerance & actions to take, Instruct & monitor on saf, Assess intial functional capacity & safety risk and Other See below Nutrition - Initial Assessment Program Goals Nutrition Program Goals Patient has diagnosis of Hyperlipidemia (ICD E78)?: Yes Visit Date of Eval: 08/11/24 (initial eval ) Cholesterol/Lipids (Other Core Measures) Determine presence & major risk factors that modify LDL goal: Cigarette smoking, Hypertension or hypertensive medication, Low HDL cholesterol <40 mg/dL*, Family history of premature CHD in Male < 55 years: female <65 yearsFa and Age men > 45 years; women >/= 55 years Outcomes/Goals: Pt IDs own risk factors & lifestyle modifications by Session 10, Verbalizes symptoms of angina & response by session 3., Pt independently manages and Other Additional Outcomes/Goals: Intervention/Plan: Advocate for lipid panel cholesterol medication if applicable, Instruct on personal lipid levels & lipid goals/NCEP guidelines, Instruct on cholesterol and Other additional plan/int Referral to dietitian:: No Diabetes (Other Core Measures) Diabetes Type: Diagnosis Type II ICD-10 E11 Insulin dependent injection/pump?: Yes Non-Insulin Dependent?: Yes Do you monitor your blood sugar at home?: Yes Referral to Diabetic Clinic:: No Outcomes/Goals:: Able to state symptoms of, Able to state, Able to state and Other additional Intervention/Plan:: Instruct on, Refer to, Instruct on and Other Weight Mgt (Other Care) Height: 5 ft 7 in Weight:: 204 lb BMI: 31.9 Diagnosis Overweight/Obesity BMI> 30% ICD-10 E66: Yes Diagnosis High BMI/Morbid Obesity BMI> 35% ICD-10 Z68: No Outcomes/Goals: Pt sets, maintains & shows weight loss goal & trend during rehab and Other additional outcomes/goals Intervention/Plan: Instruct on ideal BMI & set weight loss goal w/patient, Assist pt to ID & incorporate diet changes for weight loss by S9, Refer to Structured Weight Loss program as appropriate, Encourage goal of using 250-300dcal per session for weight loss and Other additional plan/interventions Healthy Eating Habits Will attend diet classes:: Yes Outcomes/Goals:: Consume diet rich in vegs,fruits,whole grain/high fiber,fish,lean meat, Limit sat/trans fats,cholesterol & added salts & sugars and Other additional outcome/goals: Intervention/Plan:: Assess current eating habits and Other Additional plan/interventions Education Gave educational materials for:: Signs & symptoms of hypoglycemia, Signs & symptoms of hyperglycemia, Relate diabetes to coronary artery disease and Healthy eating Core - Initial Assessment Visit Date of Eval: 08/11/24 (initial eval) Medication Compliance Preventative Medication(s):: Aspirin, Statin/lipid and Beta jaz H/O mental health issues: depression, anxiety, or addiction?: No Doesn?t believe in the benefits of treatment?: No Believes medications are unnecessary or harmful?: No Has a concern about medication side effects?: No Expresses concern over the cost of medications?: No Outcomes/Goals: Verbalizes medications,desired effect & common side effects @ DC, Pt self-reports following medication regimen, Keeps card in wallet w/medications listed by DC and Other additional outcome/goals: Interventions/plans: Instruct on medication effects & side effects, Review medication list w/patient every two weeks, Instruct importance of taking meds as ordered & assist problem solving and Other additional Tobacco Use Tobacco Use: Non-smoker How long ago did you quit using tobacco products?: Greater than or equal to 6 months ago Hypertension Hypertension Diagnosis:: Hypertension ICD-10 I10 Resting Blood Pressure:: 113/73 [place] [employer] Hypertension Guidelines Outcomes/Goals: Able to verbalize/achieve optimal blood pressure <130/80, Incorporates diet changes & exercise for blood pressure control by DC and Other additional outcomes/goals Interventions/plan: Instruct on optimal blood pressure, hypertension & medications, Instruct on effects of sodium, alcohol, stress, exercise &hypertension and Other additional plan/interventions Tobacco Cessation Referral Smoking Cessation Referral:: No Individual Education/Counseling:: No Education Schedule Given:: Yes Psychosocial - Initial Assess VIsit Date of Eval: 08/11/24 (initial eval) History of previous Mental disease:: No Target Goals Target Goals Psychosocial Test Tool Used:: [employer] QOL Cardiac and PHQ-9 Questionnaire phq-9 Severity Referral to Behavioral Health PS - Interventions: Yes: Attend Stress Management Classes Outcomes/Goals: See list Psychosocial Outcomes/Goals:: ID's personal stressors & 2 strategies to manage stress by discharge and Other Additional outcome/goals: Intervention/Plan: See List Interventions/Plan:: Assess stressors,coping strategies & signs of derpression on admission, Instruct/assist pt to develop coping & personal stress Mgt strategies, Refer to Behavioral Health if appropriate, Refer to Physician if appropriate, Instruct patient to recognize signs & symptoms of depression, Instruct patient to recog and Other additional plan/intervention Patient Health Questionnaire PHQ-9 Screening Initial Assessment: 1. Little interest or pleasure in doing things: Several days 2. Feeling down, depressed, or hopeless: Several days 3. Trouble falling or staying asleep, or sleeping too much: Nearly every day 4. Feeling tired or having little energy: More than half the days 5. Poor appetite or overeating: Several days 6. Feeling bad about yourself -- or that you are a failure or have let yourself or your family down: Not at all 7. Trouble concentrating on things, such as reading the newspaper or watching television: More than half the days 8. Moving or speaking so slowly that other people could have noticed. Or the opposite - being so fidgety or restless that you have been moving around a lot more than usual: Several days 9. Thoughts that you would be better off , or of hurting yourself in some way: Not at all How difficult have these problems made it for you to do your work, take care of things at home, or get along with other people?: Not difficult at all Total Score: 11 ROSARIO-Q SV Test Statements CAD is a disease of the arteries in the heart: True Examples of risk factors for heart disease: I Don't Know Angina is chest pain or discomfort: I Don't Know The benefits of resistance training include: True Eating more meat and dairy products: False Anti-platelet medications such as aspirin are important: I Don't Know The only effective way to manage stress: False An exercise warm-up slowly increases heart rate: True Prepared, processed foods usually have high sodium: True Depression is common after a heart attack: True The statin medications lower cholesterol: I Don't Know To control blood pressure, lower the amount of sodium: True If someone gets chest discomfort during walking: False Transfats are partially hydrogenated vegetable oils: I Don't Know Sleep apnea that is not treated increases the risk: True To control cholesterol, one should become a vegetarian: False Someone knows if he/she is exercising at the right level: I Don't Know Diabetes cannot be prevented with exercise & health eating: False Stress is a large risk for heart attack: True A diet that can help lower blood pressure is rich in: True Total Score Total Correct Responses: 12 Nutrition Survey Nutrition Survey Instructions Scoring Instructions Nutrition Survey Initial: Have you lost >10 lbs over the past 2 months without trying?: No Are you following a special diet at home for diabetes, low fat, or low salt?: No Are you interested in meeting with a dietitian for help understanding your diet?: No Do you eat less than 3 meals a day?: Yes Do you eat fatty meats (posada, sausage, ribs, etc), fried foods, desserts, large amounts of salad dressings, margarine, butter, or cheese most days?: Yes Do you have food allergies? [Enter types in comment field]: No Do you eat in restaurants more than 3 times a week?: No Do you season food with salt, seasoning salt, or garlic salt?: Yes Do you used canned, boxed, frozen meals, or soups, seasoning packets?: Yes Total Score:: 4 Exercise - 30-day Assessment Physician Prescribed Exercise Modalities: Treadmill, Schwinn Airdyne AD-7, SciFit Stepper, SciFit Pro-II Ergometer and SciFit Lateral [employer] Exercise - 60-day Assessment Physician Prescribed Exercise Modalities: Treadmill, Schwinn Airdyne AD-7, SciFit Stepper, SciFit Pro-II Ergometer and SciFit Lateral [place] Exercise - 90-day Assessment Physician Prescribed Exercise Modalities: Treadmill, Schwinn Airdyne AD-7, SciFit Stepper, SciFit Pro-II Ergometer and SciFit Lateral [employer] Exercise - Final/Discharge Physician Prescribed Exercise Modalities: Treadmill, Schwinn Airdyne AD-7, SciFit Stepper, SciFit Pro-II Ergometer and SciFit Lateral [place] Frequency: 2x/week for 18 weeks [36 sessions] and 3x/week for 12 weeks [36 sessions] Intensity: 60-80% of age predicted maximum heart rate reserve Current METSs:: 3 Target Heart Rate:: 88-110 Nutrition - 30-Day Assessment Weight Mgt (Other Care) Height: 5 ft 7 in Weight:: 204 lb BMI: 31.9 Nutrition - 60-Day Assessment Weight Mgt (Other Care) Height: 5 ft 7 in Weight:: 204 lb BMI: 31.9 Core - Final Assessment Hypertension Resting Blood Pressure:: 113/73 [place] [employer] Hypertension Guidelines Core - 60-Day Assessment Hypertension Resting Blood Pressure:: 113/73 [place] [employer] Hypertension Guidelines Psychosocial - 30-Day Assess Target Goals Target Goals Referral to Behavioral Health PS - Interventions: Yes: Attend Stress Management Classes Psychosocial - 60-Day Assess Target Goals Target Goals Referral to Behavioral Health PS - Interventions: Yes: Attend Stress Management Classes Psychosocial - 90-Day Assess Target Goals Target Goals Referral to Behavioral Health PS - Interventions: Yes: Attend Stress Management Classes Psychosocial - Final Assessmen Target Goals Target Goals Referral to Behavioral Health PS - Interventions: Yes: Attend Stress Management Classes Nutrition - 90-Day Assessment Weight Mgt (Other Care) Height: 5 ft 7 in Weight:: 204 lb BMI: 31.9 Nutrition - Final Assessment Program Goals Patient has diagnosis of Hyperlipidemia (ICD E78)?: Yes Weight Mgt (Other Care) Height: 5 ft 7 in Weight:: 204 lb BMI: 31.9
[2024-08-11 14:49] VITALS: BP 113/73
[2024-08-11 14:56] VITALS: BMI 31.9
[2024-08-11 15:28] VITALS: BMI 31.9
== END | disposition home or self-care (01) ==
LOC: CR 14:27
PROVIDERS: PCP Family Medicine; Referring Provider Internal Medicine Cardiovascular Disease; Visit Provider Internal Medicine Cardiovascular Disease
DX: Z95.2 Presence of prosthetic heart valve (principal)

== ENCOUNTER 2024-09-03 10:15 | Outpatient (RCR) | payer MEDICARE, OTHER, SELFPAY ==
[2024-08-11 15:28] VITALS: BMI 31.9
== END 2024-09-04 23:59 ==
LOC: CR 10:15
PROVIDERS: PCP Family Medicine; Referring Provider Internal Medicine Cardiovascular Disease; Visit Provider Internal Medicine Cardiovascular Disease
DX: Z95.2 Presence of prosthetic heart valve (principal)
CPT/HCPCS: 93798

== ENCOUNTER 2024-10-01 10:15 | Outpatient (RCR) | payer MEDICARE, OTHER, SELFPAY ==
[2024-08-11 15:28] VITALS: BMI 31.9
--- NOTE | 2024-09-11 07:38 | CR.ITP_ITS ---
Exercise - Initial Assessment Visit Session #:: 12 Physician Prescribed Exercise Modalities: Treadmill, Schwinn [employer]ird[employer] AD-7 and SciFit Stepper Nutrition - Initial Assessment Weight Mgt (Other Care) Height: 5 ft 7 in Weight:: 208 lb BMI: 32.5 Psychosocial - Initial Assess Target Goals Target Goals Referral to Behavioral Health PS - Interventions: Yes: Attend Stress Management Classes Patient Health Questionnaire PHQ-9 Screening 30-Day Re-eval Assessment: 1. Little interest or pleasure in doing things: Several days 2. Feeling down, depressed, or hopeless: Several days 3. Trouble falling or staying asleep, or sleeping too much: Nearly every day 4. Feeling tired or having little energy: More than half the days 5. Poor appetite or overeating: Several days 6. Feeling bad about yourself -- or that you are a failure or have let yourself or your family down: Not at all 7. Trouble concentrating on things, such as reading the newspaper or watching television: More than half the days 8. Moving or speaking so slowly that other people could have noticed. Or the opposite - being so fidgety or restless that you have been moving around a lot more than usual: Several days 9. Thoughts that you would be better off , or of hurting yourself in some way: Not at all How difficult have these problems made it for you to do your work, take care of things at home, or get along with other people?: Not difficult at all Total Score: 11 Nutrition Survey Nutrition Survey Instructions Scoring Instructions Exercise - 30-day Assessment Visit Date of Eval: 09/11/24 Session #:: 12 Physician Prescribed Exercise Modalities: Treadmill, Schwinn Airdyne AD-7 and SciFit Stepper Frequency: 3x/week for 12 weeks [36 sessions] Intensity: 60-80% of age predicted maximum heart rate reserve Duration: 30 - 45 minutes Current METSs:: 3.7 Target Heart Rate:: 88-110 Current RPE:: 11-12.5 Maximum Excercise HR:: 91 Resting Blood Pressure: 118/70 Maximum Exercise Blood Pressure: 140/78 EKG Type: NSR with LBBB with rare PVC. Outcomes & Goals Goals:: Verbalizes understanding of THR, RPE & goal METS by session 6, Documents in home exercise log/reports 30 min aerobic 5 day/wk by DC, Demonstrates accurate pulse taking by DC and Other additional outcome/goals: see below Intervention & Plan Exercise Program Goals: Instruct on personal THR & RPE, Instruct on MET level & personal MET goal, Show patient to take own pulse /validate performance until accurate, Instruct on home exercise and Other additional plan/int 30-day Reassessments 30 day Reassessments:: Progressing Reassessment Notes & Comments:: RPE explained to pt. Pt demonstrates understanding. Physical Activity Home Exercise Physical Activity - Home Exercise: Safe Exercise, Warm-up, Self-monitoring, Cool-Down, Home Exercise > 30 min Daily and Sitting Time <3 hours/daily Outcomes & Goals Outcomes/Goals: Demonstrates correct Warm-up/exercise Cool-Down (S3) if = 2.5 METs, Verbalizes symptoms of exercise intolerance by Session 3 (S3), Demonstrate safe equipment use (S3) & follows exercise prescrition (6) and Other: See below Intervention & Plan Plan/Intervention: Instruct warm-up & cool-down if exercising at > 2 METs, Instruct on symptoms of exercise intolerance & actions to take, Instruct & monitor on saf, Assess intial functional capacity & safety risk and Other See below 30-day Reassessments 30 day Reassessments:: Progressing Reassessment Notes & Comments:: Slow warm up demonstrated to pt. Pt is able to return demonstration. Exercise - 60-day Assessment Physician Prescribed Exercise Modalities: Treadmill, Schwinn Airdyne AD-7 and SciFit Stepper Exercise - 90-day Assessment Physician Prescribed Exercise Modalities: Treadmill, Schwinn Airdyne AD-7 and SciFit Stepper Exercise - Final/Discharge Physician Prescribed Exercise Modalities: Treadmill, Schwinn Airdyne AD-7 and SciFit Stepper Nutrition - 30-Day Assessment Program Goals Nutrition Program Goals Patient has diagnosis of Hyperlipidemia (ICD E78)?: Yes Visit Date of Eval: 09/11/24 Session #:: 12 Cholesterol/Lipids (Other Core Measures) Determine presence & major risk factors that modify LDL goal: Hypertension or hypertensive medication, Low HDL cholesterol <40 mg/dL*, Family history of p remature CHD in Male < 55 years: female <65 yearsFa and Age men > 45 years; women >/= 55 years Outcomes/Goals: Pt IDs own risk factors & lifestyle modifications by Session 10, Verbalizes symptoms of angina & response by session 3., Pt independently manages and Other Additional Outcomes/Goals: Intervention/Plan: Advocate for lipid panel cholesterol medication if applicable, Instruct on personal lipid levels & lipid goals/NCEP guidelines, Instruct on cholesterol and Other additional plan/int Referral to dietitian:: No 30-day Reassessments:: Progressing Reassessment Notes & Comments:: Risk factors and how to minimized risk factors explained to pt. Pt demonstrates understanding. Diabetes (Other Core Measures) Diabetes Type: Diagnosis Type II ICD-10 E11 Insulin dependent injection/pump?: Yes Non-Insulin Dependent?: Yes Do you monitor your blood sugar at home?: Yes Referral to Diabetic Clinic:: No 30-day Reassessments:: Progressing Reassessment Notes & Comments:: Will continue to encourage pt to attend diabetic clinic. Weight Mgt (Other Care) Height: 5 ft 7 in Weight:: 208 lb BMI: 32.5 Diagnosis Overweight/Obesity BMI> 30% ICD-10 E66: Yes Diagnosis High BMI/Morbid Obesity BMI> 35% ICD-10 Z68: No Outcomes/Goals: Pt sets, maintains & shows weight loss goal & trend during rehab and Other additional outcomes/goals Intervention/Plan: Instruct on ideal BMI & set weight loss goal w/patient, Assist pt to ID & incorporate diet changes for weight loss by S9, Refer to Structured Weight Loss program as appropriate, Encourage goal of using 250- 300dcal per session for weight loss and Other additional plan/interventions 30 day Reassessments:: Progressing Reassessment Notes & Comments:: Pt to attend nutrition class. Encourage pt to meet with forestry and wildlife manager. Healthy Eating Habits Will attend diet classes:: Yes Outcomes/Goals:: Consume diet rich in vegs,fruits,whole grain/high fiber,fish,lean meat, Limit sat/trans fats,cholesterol & added salts & sugars and Other additional outcome/goals: Intervention/Plan:: Assess current eating habits and Other Additional plan/interventions 30-day Reassessments:: Progressing Reassessment Notes & Comments:: Pt to attend nutrition class. Encourage pt to meet with forestry and wildlife manager. Education Gave educational materials for:: Signs & symptoms of hypoglycemia, Signs & symptoms of hyperglycemia, Relate diabetes to coronary artery disease and Healthy eating Nutrition - 60-Day Assessment Weight Mgt (Other Care) Height: 5 ft 7 in Weight:: 208 lb BMI: 32.5 Core - 30-Day Assessment Visit Date of Eval: 09/11/24 Session #:: 12 Medication Compliance Preventative Medication(s):: Aspirin, Statin/lipid and Beta jaz H/O mental health issues: depression, anxiety, or addiction?: No Doesn?t believe in the benefits of treatment?: No Believes medications are unnecessary or harmful?: No Has a concern about medication side effects?: No Expresses concern over the cost of medications?: No Outcomes/Goals: Verbalizes medications,desired effect & common side effects @ DC, Pt self-reports following medication regimen, Keeps card in wallet w/medications listed by DC and Other additional outcome/goals: Interventions/plans: Instruct on medication effects & side effects, Review medication list w/patient every two weeks, Instruct importance of taking meds as ordered & assist problem solving and Other additional 30-day Reassessments:: Progressing Reassessment Notes & Comments:: Pt encouraged to take meds 100% of time as prescribed by his physician. Tobacco Use Tobacco Use: Non-smoker Hypertension Hypertension Diagnosis:: Hypertension ICD-10 I10 Resting Blood Pressure:: 118/70 [place] [employer] Hypertension Guidelines Peak Exercise Blood Pressure:: 140/78 Outcomes/Goals: Able to verbalize/achieve optimal blood pressure <130/80, Incorporates diet changes & exercise for blood pressure control by DC and Other additional outcomes/goals Interventions/plan: Instruct on optimal blood pressure, hypertension & medications, Instruct on effects of sodium, alcohol, stress, exercise &hypertension and Other additional plan/interventions 30 day Reassessments:: Met Reassessment Notes & Comments:: Pt,s bp's have been within AHA's normal limits. Will continue to monitor. Tobacco Cessation Referral Smoking Cessation Referral:: No Individual Education/Counseling:: No Education Schedule Given:: Yes Psychosocial - 30-Day Assess VIsit Date of Eval: 09/11/24 Session #:: 12 History of previous Mental disease:: No Target Goals Target Goals Psychosocial Test Tool Used:: [employer] QOL Cardiac and PHQ-9 Questionnaire phq-9 Severity Referral to Behavioral Health PS - Interventions: Yes: Attend Stress Management Classes Outcomes/Goals: See list Psychosocial Outcomes/Goals:: ID's personal stressors & 2 strategies to manage stress by discharge and Other Additional outcome/goals: Intervention/Plan: See List Interventions/Plan:: Assess stressors,coping strategies & signs of derpression on admission, Instruct/assist pt to develop coping & personal stress Mgt strategies, Refer to Behavioral Health if appropriate, Refer to Physician if appropriate, Instruct patient to recognize signs & symptoms of depression, Instruct patient to recog and Other additional plan/intervention 30-day Reassessments: 30 day Reassessments:: Met Reassessment Notes & Comments:: pt denies any psychosocial issues at this time. Psychosocial - 60-Day Assess Target Goals Target Goals Referral to Behavioral Health PS - Interventions: Yes: Attend Stress Management Classes Outcomes/Goals: See list Psychosocial Outcomes/Goals:: ID's personal stressors & 2 strategies to manage stress by discharge and Other Additional outcome/goals: Psychosocial - 90-Day Assess Target Goals Target Goals Referral to Behavioral Health PS - Interventions: Yes: Attend Stress Management Classes Psychosocial - Final Assessmen Target Goals Target Goals Referral to Behavioral Health PS - Interventions: Yes: Attend Stress Management Classes Nutrition - 90-Day Assessment Weight Mgt (Other Care) Height: 5 ft 7 in Weight:: 208 lb BMI: 32.5 Nutrition - Final Assessment Weight Mgt (Other Care) Height: 5 ft 7 in Weight:: 208 lb BMI: 32.5
[2024-09-11 07:52] VITALS: BP 118/70; BMI 32.5
== END 2024-10-04 23:59 ==
LOC: CR 10:15
PROVIDERS: PCP Family Medicine; Referring Provider Internal Medicine Cardiovascular Disease; Visit Provider Internal Medicine Cardiovascular Disease
DX: Z95.2 Presence of prosthetic heart valve (principal)
CPT/HCPCS: 93798

== ENCOUNTER 2024-11-03 10:15 | Outpatient (RCR) | payer MEDICARE, OTHER, SELFPAY ==
[2024-09-11 07:52] VITALS: BMI 32.5
[2024-10-05 00:44] VITALS: BP 118/70
--- NOTE | 2024-10-10 08:55 | CR.ITP_ITS ---
Exercise - Initial Assessment Physician Prescribed Exercise Modalities: Treadmill, Schwinn Airdyne AD-7 and SciFit Stepper Nutrition - Initial Assessment Weight Mgt (Other Care) Height: 5 ft 7 in Weight:: 209 lb BMI: 32.7 Core - Initial Assessment Hypertension Resting Blood Pressure:: 138/80 [place] [employer] Hypertension Guidelines Psychosocial - Initial Assess Target Goals Target Goals Referral to Behavioral Health PS - Interventions: Yes: Attend Stress Management Classes Patient Health Questionnaire PHQ-9 Screening 60-Day Re-eval Assessment: 1. Little interest or pleasure in doing things: Several days 2. Feeling down, depressed, or hopeless: Several days 3. Trouble falling or staying asleep, or sleeping too much: Nearly every day 4. Feeling tired or having little energy: More than half the days 5. Poor appetite or overeating: Several days 6. Feeling bad about yourself -- or that you are a failure or have let yourself or your family down: Not at all 7. Trouble concentrating on things, such as reading the newspaper or watching television: More than half the days 8. Moving or speaking so slowly that other people could have noticed. Or the opposite - being so fidgety or restless that you have been moving around a lot more than usual: Several days 9. Thoughts that you would be better off , or of hurting yourself in some way: Not at all How difficult have these problems made it for you to do your work, take care of things at home, or get along with other people?: Not difficult at all Total Score: 11 Nutrition Survey Nutrition Survey Instructions Scoring Instructions Exercise - 30-day Assessment Physician Prescribed Exercise Modalities: Treadmill, Schwinn Airdyne AD-7 and SciFit Stepper Exercise - 60-day Assessment Visit Date of Eval: 10/10/24 Session #:: 21 Physician Prescribed Exercise Modalities: Treadmill, Schwinn Airdyne AD-7 and SciFit Stepper Frequency: 3x/week for 12 weeks [36 sessions] Intensity: 60-80% of age predicted maximum heart rate reserve Duration: 30 - 45 minutes Current METSs:: 5.3 Target Heart Rate:: 88-110 Current RPE:: 12.5-13 Maximum Excercise HR:: 94 Resting Blood Pressure: 122/80 Maximum Exercise Blood Pressure: 138/80 EKG Type: NSR w/LBBB Outcomes & Goals Goals:: Verbalizes understanding of THR, RPE & goal METS by session 6, Documents in home exercise log/reports 30 min aerobic 5 day/wk by DC, Demonstrates accurate pulse taking by DC and Other additional outcome/goals: see below Intervention & Plan Exercise Program Goals: Instruct on personal THR & RPE, Instruct on MET level & personal MET goal, Show patient to take own pulse /validate performance until accurate, Instruct on home exercise and Other additional plan/int 30-day Reassessments 30 day Reassessments:: Progressing Reassessment Notes & Comments:: MET's explained in exercise class. Pt demonstrates understanding Physical Activity Home Exercise Physical Activity - Home Exercise: Safe Exercise, Warm-up, Self-monitoring, Cool-Down, Home Exercise > 30 min Daily and Sitting Time <3 hours/daily Outcomes & Goals Outcomes/Goals: Demonstrates correct Warm-up/exercise Cool-Down (S3) if = 2.5 METs, Verbalizes symptoms of exercise intolerance by Session 3 (S3), Demonstrate safe equipment use (S3) & follows exercise prescrition (6) and Other: See below Intervention & Plan Plan/Intervention: Instruct warm-up & cool-down if exercising at > 2 METs, Instruct on symptoms of exercise intolerance & actions to take, Instruct & monitor on saf, Assess intial functional capacity & safety risk and Other See below 30-day Reassessments 30 day Reassessments:: Progressing Reassessment Notes & Comments:: Cool down explained and demonstrated. Pt is able to return demonstration. Exercise - 90-day Assessment Physician Prescribed Exercise Modalities: Treadmill, Schwinn Airdyne AD-7 and SciFit Stepper Exercise - Final/Discharge Physician Prescribed Exercise Modalities: Treadmill, Schwinn Airdyne AD-7 and SciFit Stepper Nutrition - 30-Day Assessment Weight Mgt (Other Care) Height: 5 ft 7 in Weight:: 209 lb BMI: 32.7 Nutrition - 60-Day Assessment Program Goals Nutrition Program Goals Patient has diagnosis of Hyperlipidemia (ICD E78)?: Yes Visit Date of Eval: 10/10/24 Session #:: 21 Cholesterol/Lipids (Other Core Measures) Determine presence & major risk factors that modify LDL goal: Hypertension or hypertensive medication, Low HDL cholesterol <40 mg/dL*, Family history of premature CHD in Male < 55 years: female <65 yearsFa and Age men > 45 years; women >/= 55 years Outcomes/Goals: Pt IDs own risk factors & lifestyle modifications by Session 10, Verbalizes symptoms of angina & response by session 3., Pt independently manages and Other Additional Outcomes/Goals: Intervention/Plan: Advocate for lipid panel cholesterol medication if applicable, Instruct on personal lipid levels & lipid goals/NCEP guidelines, Instruct on cholesterol and Other additional plan/int 30-day Reassessments:: Progressing Reassessment Notes & Comments:: Pt encouraged to do routine blood draws. Stressed the importance. Pt demonstrates understanding. Diabetes (Other Core Measures) Diabetes Type: Diagnosis Type II ICD-10 E11 Insulin dependent injection/pump?: Yes Non-Insulin Dependent?: Yes Do you monitor your blood sugar at home?: Yes Referral to Diabetic Clinic:: No 30-day Reassessments:: Progressing Reassessment Notes & Comments:: Pt does monitor his blood sugars frequently. Pt understands the importance of good BS control. Will continue to monitor. Weight Mgt (Other Care) Height: 5 ft 7 in Weight:: 209 lb BMI: 32.7 Diagnosis Overweight/Obesity BMI> 30% ICD-10 E66: Yes Diagnosis High BMI/Morbid Obesity BMI> 35% ICD-10 Z68: No Outcomes/Goals: Pt sets, maintains & shows weight loss goal & trend during rehab and Other additional outcomes/goals Intervention/Plan: Instruct on ideal BMI & set weight loss goal w/patient, Assist pt to ID & incorporate diet changes for weight loss by S9, Refer to Structured Weight Loss program as appropriate, Encourage goal of using 250- 300dcal per session for weight loss and Other additional plan/interventions 30 day Reassessments:: Progressing Reassessment Notes & Comments:: Pt has attended nutrition class. Continue to stress the importance of a heart healthy diet. encourage keeping a food log. Healthy Eating Habits Will attend diet classes:: Yes Outcomes/Goals:: Consume diet rich in vegs,fruits,whole grain/high fiber,fish,lean meat, Limit sat/trans fats,cholesterol & added salts & sugars and Other additional outcome/goals: Intervention/Plan:: Assess current eating habits and Other Additional plan/interventions 30-day Reassessments:: Met Reassessment Notes & Comments:: Pt has attended nutrition class. Pt understands the importance of a heart healthy diet. Education Gave educational materials for:: Signs & symptoms of hypoglycemia, Signs & symptoms of hyperglycemia, Relate diabetes to coronary artery disease and Health y eating Core - Final Assessment Hypertension Resting Blood Pressure:: 138/80 [place] [employer] Hypertension Guidelines Core - 60-Day Assessment Visit Date of Eval: 10/10/24 Session #:: 21 Medication Compliance Preventative Medication(s):: Aspirin, Statin/lipid and Beta jaz H/O mental health issues: depression, anxiety, or addiction?: No Doesn?t believe in the benefits of treatment?: No Believes medications are unnecessary or harmful?: No Has a concern about medication side effects?: No Expresses concern over the cost of medications?: No Outcomes/Goals: Verbalizes medications,desired effect & common side effects @ DC, Pt self-reports following medication regimen, Keeps card in wallet w/medications listed by DC and Other additional outcome/goals: Interventions/plans: Instruct on medication effects & side effects, Review medication list w/patient every two weeks, Instruct importance of taking meds as ordered & assist problem solving and Other additional 30-day Reassessments:: Met Reassessment Notes & Comments:: Pt is currently taking meds as prescribed. Will continue to monitor. Tobacco Use Tobacco Use: Non-smoker Hypertension Hypertension Diagnosis:: Hypertension ICD-10 I10 Resting Blood Pressure:: 122/80 Resting Blood Pressure:: 138/80 [place] [employer] Hypertension Guidelines Peak Exercise Blood Pressure:: 128/60 Outcomes/Goals: Able to verbalize/achieve optimal blood pressure <130/80, Incorporates diet changes & exercise for blood pressure control by DC and Other additional outcomes/goals Interventions/plan: Instruct on optimal blood pressure, hypertension & medications, Instruct on effects of sodium, alcohol, stress, exercise &hypertension and Other additional plan/interventions 30 day Reassessments:: Progressing Reassessment Notes & Comments:: Pt's BP's have been slightly elevated. Will continue to monitor and send report to the pt's physician if necessary. Tobacco Cessation Referral Smoking Cessation Referral:: No Individual Education/Counseling:: No Education Schedule Given:: Yes Psychosocial - 30-Day Assess Target Goals Target Goals Referral to Behavioral Health PS - Interventions: Yes: Attend Stress Management Classes Outcomes/Goals: See list Psychosocial Outcomes/Goals:: ID's personal stressors & 2 strategies to manage stress by discharge and Other Additional outcome/goals: Psychosocial - 60-Day Assess VIsit Date of Eval: 10/10/24 Session #:: 21 History of previous Mental disease:: No Target Goals Target Goals Psychosocial Test Tool Used:: [employer] QOL Cardiac and PHQ-9 Questionnaire phq-9 Severity Referral to Behavioral Health PS - Interventions: Yes: Attend Stress Management Classes Outcomes/Goals: See list Psychosocial Outcomes/Goals:: ID's personal stressors & 2 strategies to manage stress by discharge and Other Additional outcome/goals: Intervention/Plan: See List Interventions/Plan:: Assess stressors,coping strategies & signs of derpression on admission, Instruct/assist pt to develop coping & personal stress Mgt strategies, Refer to Behavioral Health if appropriate, Refer to Physician if appropriate, Instruct patient to recognize signs & symptoms of depression, Instruct patient to recog and Other additional plan/intervention 30-day Reassessments: 30 day Reassessments:: Met Reassessment Notes & Comments:: Pt denies any psychosocial issues at this time. Will continue to monitor. Psychosocial - 90-Day Assess Target Goals Target Goals Referral to Behavioral Health PS - Interventions: Yes: Attend Stress Management Classes Psychosocial - Final Assessmen Target Goals Target Goals Referral to Behavioral Health PS - Interventions: Yes: Attend Stress Management Classes Nutrition - 90-Day Assessment Weight Mgt (Other Care) Height: 5 ft 7 in Weight:: 209 lb BMI: 32.7 Nutrition - Final Assessment Weight Mgt (Other Care) Height: 5 ft 7 in Weight:: 209 lb BMI: 32.7
[2024-10-10 09:16] VITALS: BP 122/80; BP 138/80; BMI 32.7
== END 2024-11-04 23:59 ==
LOC: CR 10:15
PROVIDERS: PCP Family Medicine; Referring Provider Internal Medicine Cardiovascular Disease; Visit Provider Internal Medicine Cardiovascular Disease
DX: Z95.0 Presence of cardiac pacemaker (principal)
CPT/HCPCS: 93798

== ENCOUNTER 2024-11-17 10:15 | Outpatient (RCR) | payer MEDICARE, OTHER, SELFPAY ==
[2024-10-10 09:16] VITALS: BMI 32.7
--- NOTE | 2024-11-10 09:00 | PCM.CR.ITP ---
Exercise - Initial Assessment Physician Prescribed Exercise Modalities: Treadmill, Schwinn Airdyne AD-7 and SciFit Stepper Nutrition - Initial Assessment Weight Mgt (Other Care) Height: 5 ft 7 in Weight:: 212 lb BMI: 33.2 Psychosocial - Initial Assess Target Goals Target Goals Referral to Behavioral Health PS - Interventions: Yes: Attend Stress Management Classes Patient Health Questionnaire PHQ-9 Screening 90-Day Re-eval Assessment: 1. Little interest or pleasure in doing things: Several days 2. Feeling down, depressed, or hopeless: Several days 3. Trouble falling or staying asleep, or sleeping too much: Nearly every day 4. Feeling tired or having little energy: More than half the days 5. Poor appetite or overeating: Several days 6. Feeling bad about yourself -- or that you are a failure or have let yourself or your family down: Not at all 7. Trouble concentrating on things, such as reading the newspaper or watching television: More than half the days 8. Moving or speaking so slowly that other people could have noticed. Or the opposite - being so fidgety or restless that you have been moving around a lot more than usual: Several days 9. Thoughts that you would be better off , or of hurting yourself in some way: Not at all How difficult have these problems made it for you to do your work, take care of things at home, or get along with other people?: Not difficult at all Total Score: 11 Nutrition Survey Nutrition Survey Instructions Scoring Instructions Exercise - 30-day Assessment Physician Prescribed Exercise Modalities: Treadmill, Schwinn Airdyne AD-7 and SciFit Stepper Exercise - 60-day Assessment Physician Prescribed Exercise Modalities: Treadmill, Schwinn Airdyne AD-7 and SciFit Stepper Exercise - 90-day Assessment Visit Date of Eval: 11/10/24 Session #:: 32 Physician Prescribed Exercise Modalities: Treadmill, Schwinn Airdyne AD-7 and SciFit Stepper Frequency: 3x/week for 12 weeks [36 sessions] Intensity: 60-80% of age predicted maximum heart rate reserve Duration: 30 - 45 minutes METs - Progression 0.5-1.0 weekly:: 1 Current METSs:: 5.3 Target Heart Rate:: 88-118 Target RPE 12-16:: 12-16 Current RPE:: 13 Maximum Excercise HR:: 96 Resting Blood Pressure: 126/72 Maximum Exercise Blood Pressure: 146/78 EKG Type: NSR with LBBB Current Physical Activity or Exercising minutes: 30 Outcomes & Goals Goals:: Verbalizes understanding of THR, RPE & goal METS by session 6, Documents in home exercise log/reports 30 min aerobic 5 day/wk by DC and Demonstrates accurate pulse taking by DC Intervention & Plan Exercise Program Goals: Instruct on personal THR & RPE, Instruct on MET level & personal MET goal, Show patient to take own pulse /validate performance until accurate and Instruct on home exercise 30-day Reassessments 30 day Reassessments:: Met Reassessment Notes & Comments:: Pt is educated on RPE, maintaining THR, increasing exercise workloads as tolerated. Physical Activity Home Exercise Physical Activity - Home Exercise: Safe Exercise, Warm-up, Self-monitoring, Cool-Down, Home Exercise > 30 min Daily and Sitting Time <3 hours/daily Outcomes & Goals Outcomes/Goals: Demonstrates correct Warm-up/exercise Cool-Down (S3) if = 2.5 METs, Verbalizes symptoms of exercise intolerance by Session 3 (S3) and Demonstrate safe equipment use (S3) & follows exercise prescrition (6) Intervention & Plan Plan/Intervention: Instruct warm-up & cool-down if exercising at > 2 METs, Instruct on symptoms of exercise intolerance & actions to take, Instruct & monitor on saf and Assess intial functional capacity & safety risk 30-day Reassessments 30 day Reassessments:: Met Reassessment Notes & Comments:: Pt is exercising as prescribed, completing a warm up and cool down. shows understanding of exercise safety. attending consistently. Exercise - Final/Discharge Physician Prescribed Exercise Modalities: Treadmill, Schwinn Airdyne AD-7 and SciFit Stepper Nutrition - 30-Day Assessment Weight Mgt (Other Care) Height: 5 ft 7 in Weight:: 212 lb BMI: 33.2 Nutrition - 60-Day Assessment Weight Mgt (Other Care) Height: 5 ft 7 in Weight:: 212 lb BMI: 33.2 Core - 30-Day Assessment Hypertension Citizen Of [place] Heart Association Hypertension Guidelines Reassessment Notes & Comments:: occasional slightly elevated BP upon arrival, but back WNL after exercise. will continue to trend BP's are report to physician if elevated BP's continue. BP's maintain in a normal range during exercise. Core - Final Assessment Hypertension Citizen [place] Heart Association Hypertension Guidelines Reassessment Notes & Comments:: occasional slightly elevated BP upon arrival, but back WNL after exercise. will continue to trend BP's are report to physician if elevated BP's continue. BP's maintain in a normal range during exercise. Core - 90 Day Assessment Medication Compliance Preventative Medication(s):: Aspirin, Statin/lipid and Beta jaz H/O mental health issues: depression, anxiety, or addiction?: No Doesn?t believe in the benefits of treatment?: No Believes medications are unnecessary or harmful?: No Has a concern about medication side effects?: No Expresses concern over the cost of medications?: No Outcomes/Goals: Verbalizes medications,desired effect & common side effects @ DC, Pt self-reports following medication regimen and Keeps card in wallet w/medications listed by DC Interventions/plans: Instruct on medication effects & side effects, Review medication list w/patient every two weeks and Instruct importance of taking meds as ordered & assist problem solving 30-day Reassessments:: Met Reassessment Notes & Comments:: Pt is taking medications as prescribed. Tobacco Use Tobacco Use: Non-smoker 30-day Reassessments:: Met Reassessment Notes & Comments:: Pt is a nonsmoker. Hypertension Hypertension Diagnosis:: Hypertension ICD-10 I10 Resting Blood Pressure:: 126/72 Citizen [place] Heart Association Hypertension Guidelines Peak Exercise Blood Pressure:: 148/76 Outcomes/Goals: Able to verbalize/achieve optimal blood pressure <130/80 and Incorporates diet changes & exercise for blood pressure control by DC Interventions/plan: Instruct on optimal blood pressure, hypertension & medications and Instruct on effects of sodium, alcohol, stress, exercise &hypertension 30 day Reassessments:: Progressing Reassessment Notes & Comments:: occasional slightly elevated BP upon arrival, but back WNL after exercise. will continue to trend BP's are report to physician if elevated BP's continue. BP's maintain in a normal range during exercise. Tobacco Cessation Referral Smoking Cessation Referral:: No Individual Education/Counseling:: No Education Schedule Given:: Yes Psychosocial - 30-Day Assess Target Goals Target Goals Referral to Behavioral Health PS - Interventions: Yes: Attend Stress Management Classes Psychosocial - 60-Day Assess Target Goals Target Goals Referral to Behavioral Health PS - Interventions: Yes: Attend Stress Management Classes Psychosocial - 90-Day Assess VIsit Date of Eval: 11/10/24 Session #:: 32 History of previous Mental disease:: No Target Goals Target Goals Psychosocial Test Tool Used:: PHQ-9 Questionnaire phq-9 Severity Referral to Behavioral Health PS - Interventions: Yes: Attend Stress Management Classes Outcomes/Goals: See list Psychosocial Outcomes/Goals:: ID's personal stressors & 2 strategies to manage stress by discharge Intervention/Plan: See List Interventions/Plan:: Assess stressors,coping strategies & signs of derpression on admission, Instruct/assist pt to develop coping & personal stress Mgt strategies, Refer to Behavioral Health if appropriate, Refer to Physician if appropriate, Instruct patient to recognize signs & symptoms of depression and Instruct patient to recog 30-day Reassessments: 30 day Reassessments:: Met Reassessment Notes & Comments:: no psychosocial issues at this time. Pt attended stress management education class. Psychosocial - Final Assessmen Target Goals Target Goals Referral to Behavioral Health PS - Interventions: Yes: Attend Stress Management Classes Nutrition - 90-Day Assessment Program Goals Nutrition Program Goals Patient has diagnosis of Hyperlipidemia (ICD E78)?: Yes Visit Date of Eval: 11/10/24 Session #:: 32 Cholesterol/Lipids (Other Core Measures) Determine presence & major risk factors that modify LDL goal: Hypertension or hypertensive medication, Low HDL cholesterol <40 mg/dL* and Age men > 45 years; women >/= 55 years Outcomes/Goals: Pt IDs own risk factors & lifestyle modifications by Session 10, Verbalizes symptoms of angina & response by session 3. and Pt independently manages Intervention/Plan: Advocate for lipid panel cholesterol medication if applicable, Instruct on personal lipid levels & lipid goals/NCEP guidelines and Instruct on cholesterol Referral to dietitian:: No 30-day Reassessments:: Met Reassessment Notes & Comments:: encouraged to continue to do routine cholesterol checks as prescribed by his physician. Pt demonstrates understanding. is attending all educational classes that are offered to him. Diabetes (Other Core Measures) Diabetes Type: Diagnosis Type II ICD-10 E11 Insulin dependent injection/pump?: Yes Non-Insulin Dependent?: Yes Do you monitor your blood sugar at home?: Yes Referral to Diabetic Clinic:: No Outcomes/Goals:: Able to state symptoms of, Able to state and Able to state Intervention/Plan:: Instruct on, Refer to and Instruct on 30-day Reassessments:: Met Reassessment Notes & Comments:: Patient demonstrates understanding regarding his blood sugar levels and checks his monitor frequently, understands low vs high blood sugar levels. understands hypoglycemia symptoms and signs to look for when exercising. Weight Mgt (Other Care) Height: 5 ft 7 in Weight:: 212 lb BMI: 33.2 Diagnosis Overweight/Obesity BMI> 30% ICD-10 E66: Yes Outcomes/Goals: Pt sets, maintains & shows weight loss goal & trend during rehab Intervention/Plan: Instruct on ideal BMI & set weight loss goal w/patient, Assist pt to ID & incorporate diet changes for weight loss by S9, Refer to Structured Weight Loss program as appropriate and Encourage goal of using 250-300dcal per session for weight loss 30 day Reassessments:: Progressing Reassessment Notes & Comments:: continues to work toward weight loss goals. Healthy Eating Habits Will attend diet classes:: Yes Outcomes/Goals:: Consume diet rich in vegs,fruits,whole grain/high fiber,fish,lean meat, Limit sat/trans fats,cholesterol & added salts & sugars and Other additional outcome/goals: Intervention/Plan:: Assess current eating habits 30-day Reassessments:: Met Reassessment Notes & Comments:: attended dietary class and other relevant education classes. understands importance of heart healthy and diabetic diet. Education Gave educational materials for:: Signs & symptoms of hypoglycemia, Signs & symptoms of hyperglycemia, Relate diabetes to coronary artery disease and Healthy eating Nutrition - Final Assessment Weight Mgt (Other Care) Height: 5 ft 7 in Weight:: 212 lb BMI: 33.2
[2024-11-10 09:30] VITALS: BP 126/72; BMI 33.2
== END 2024-12-05 23:59 ==
LOC: CR 10:15
PROVIDERS: PCP Family Medicine; Referring Provider Internal Medicine Cardiovascular Disease; Visit Provider Internal Medicine Cardiovascular Disease
DX: Z95.0 Presence of cardiac pacemaker (principal)

== ENCOUNTER → 2025-01-13 | Outpatient (CLI) | payer MEDICARE, OTHER, SELFPAY ==
[2024-11-10 09:30] VITALS: BMI 33.2
[2025-01-13 19:46] LABS: PSA,Total - Annual Screen 0.82 ng/mL (0.02-4.00)
== END | disposition home or self-care (01) ==
LOC: MTLAB 11:06
PROVIDERS: PCP Family Medicine; Referring Provider Family Medicine; Visit Provider Family Medicine
DX: Z12.5 Encounter for screening for malignant neoplasm of prostate (principal)
CPT/HCPCS: 36415; 84153; G0103

== ENCOUNTER → 2025-02-03 | Outpatient (CLI) | payer MEDICARE, OTHER, SELFPAY ==
[2024-11-10 09:30] VITALS: BMI 33.2
--- NOTE | 2025-02-04 08:48 | LES_PTH ---
PATIENT: BETH VELEZ LOC: [facility] U#:[id number] AGE/SX: 75/M ROOM: RE02/03/[address]: Paul Bush MD : [id number] BED: DIS: 02/03/2025 SPEC #: [id number] RECD: 02/05/25 09:00 STATUS: VIBHA PERESDylan #: [id number] LYNDA: 02/04/25 08:[address]: Paul Bush DEPT: SURGICAL PATHOLOGY RECD BY: Td Godinez Tissues: A - Skin of leg, NOS Procedures: Surgery Specimen Level IV HEADER OPERATION: Left lower leg biopsy PRE-OP DIAGNOSIS: Suspicious nevus TISSUE SUBMITTED: A- Left lower leg biopsy MICROSCOPIC DIAGNOSIS A. Skin, Left Lower Leg, Suspicious Nevus, Biopsy: - inflammatory hemorrhagic crust (shave). - basal cell carcinoma involving bilateral edges, deep edge free (punch). MICROSCOPIC DESCRIPTION Slides are reviewed. GROSS DESCRIPTION A. Received in formalin in a container labeled with the patient's name, date of , and left leg-lower are 2 irregular and unoriented fragments of skin. The larger portion is an irregular and unoriented skin shave measuring 0.9 x 0.7 cm with a depth of 0.1 cm. The white-woodruff epidermis is notable for a brown-black, irregular plaque with ill-defined borders measuring 0.8 x 0.6 x 0.1 cm. The plaque appears to come to within 0.1 cm of the peripheral margin. The deep margin is inked green. The specimen is quadrisected to reveal hyperpigmented cut surfaces that abut the deep margin. The smaller portion is a cylindrical and unoriented punch biopsy measuring 0.4 x 0.4 x 0.3 cm. The possible epidermis is peralta and diffusely roughened. The opposing possible resection margin is inked green. The specimen is submitted entirely as follows:A1. Larger skin shaveA2. Smaller punch biopsy [facility] 02-05-2025 CPT:[id number]
== END | disposition home or self-care (01) ==
LOC: LABSPEC 13:04
PROVIDERS: PCP Family Medicine; Visit Provider Family Medicine
DX: C44.719 Basal cell carcinoma of skin of left lower limb, including hip (principal)
CPT/HCPCS: 88305

== ENCOUNTER → 2025-02-18 | Outpatient (CLI) | payer MEDICARE, OTHER, SELFPAY ==
[2024-11-10 09:30] VITALS: BMI 33.2
--- NOTE | 2025-02-18 09:16 | RAD_ITS ---
PROCEDURE: CHEST PA AND LATERAL 02/18/2025 REASON FOR EXAM: COUGH WITH CHEST PAIN TECHNIQUE: Frontal and lateral views of the chest. COMPARISON: None FINDINGS: Hardware: Sternotomy wires are present. Heart: Heart size is mildly enlarged. Status post mitral valve replacement. Mediastinum: The mediastinal contour is unremarkable. Lungs: The lungs are clear. Bones: The bones are unremarkable. RAD/Chest PA and Lateral IMPRESSION: Prior mitral valve replacement. No acute abnormality is seen. Reading Location: [facility]-
== END | disposition home or self-care (01) ==
LOC: MTRAD 09:16
PROVIDERS: PCP Family Medicine; Referring Provider Family Medicine; Visit Provider Family Medicine
DX: I50.9 Heart failure, unspecified (principal)
CPT/HCPCS: 71046

== ENCOUNTER → 2025-03-24 | Outpatient (CLI) | payer MEDICARE, OTHER, SELFPAY ==
[2024-11-10 09:30] VITALS: BMI 33.2
[2025-03-24 12:16] LABS: Pro- Brain NATRIURETIC PEPTIDE 159 pg/mL (<=900)
[2025-03-24 12:21] LABS: Anion Gap 12 (5-15); BUN 16 mg/dL (4-19); BUN/Creat Ratio 18.6 RATIO (10-20); Calcium,Total 9.8 mg/dL (7.6-11.0); Carbon Dioxide 25.6 mmol/L (21.0-32.0); Chloride 103 mmol/L (98-108); Creatinine, Serum 0.88 mg/dL (0.70-1.20); EST Glomerular Filtration Rate 90 (>60); Glucose 135 mg/dL (70-99); Potassium 4.6 mmol/L (3.3-5.1); Sodium Level 141 mmol/L (133-145)
== END | disposition home or self-care (01) ==
LOC: LAB 10:07
PROVIDERS: PCP Family Medicine; Referring Provider Nurse Practitioner Gerontology; Visit Provider Nurse Practitioner Gerontology
DX: R06.09 Other forms of dyspnea (principal)
CPT/HCPCS: 36415; 80048; 83880

== ENCOUNTER 2025-07-21 10:48 | Outpatient (CLI) | payer MEDICARE, OTHER, SELFPAY ==
[2024-11-10 09:30] VITALS: BMI 33.2
[2025-07-21 12:34] LABS: Creatinine, Urine (random) 55.90 mg/dL (39.00-259.00); Microalbumin,Random Urine < 12.0 mg/L (<20 mg/L)
== END 2025-07-21 23:59 | disposition home or self-care (01) ==
LOC: MFPLAB 10:48 → LABSPEC 10:49
PROVIDERS: PCP Family Medicine; Visit Provider Family Medicine
DX: E11.9 Type 2 diabetes mellitus without complications (principal)
CPT/HCPCS: 82043; 82570

== ENCOUNTER → 2025-09-30 | Outpatient (CLI) | payer MEDICARE, OTHER, SELFPAY ==
[2024-11-10 09:30] VITALS: BMI 33.2
[2025-09-30 08:50] LABS: Hematocrit 46.7 % (40-54); Hemoglobin 15.8 g/dL (13.0-16.5); Immature Granulocytes Count 0.020 X10^3/uL (0.0-0.0); Mean Corp Hgb Conc 33.8 g/dL (32-36); Mean Corpuscular Volume 101.3 fL (80-94); Mean Platelet Vol. 9.5 fl (6.2-12.0); NRBC Flagged by Analyzer 0 % (0-5); Platelet Count 200 K/mm3 (150-450); RBC Distribution Width CV 12.8 % (11.6-14.6); RBC Distribution Width SD 48.0 fl (35.1-43.9); Red Blood Count 4.61 M/mm3 (4.6-6.2); White Blood Count 6.6 K/mm3 (4.4-11.0)
[2025-09-30 09:45] LABS: Magnesium 2.1 mg/dL (1.5-2.2); Pro- Brain NATRIURETIC PEPTIDE 156 pg/mL (<=900)
[2025-09-30 10:32] LABS: AST(SGOT) 27 U/L (<=37); Alanine Aminotransfer ALT/SGPT 26 U/L (<=46); Albumin, Serum 4.1 g/dL (3.4-4.8); Alkaline Phosphatase 183 U/L (40-129); Anion Gap 13 (5-15); BUN 17 mg/dL (4-19); BUN/Creat Ratio 18.6 RATIO (10-20); Bilirubin, Direct 0.13 mg/dL (0.00-0.30); Calcium,Total 9.9 mg/dL (7.6-11.0); Carbon Dioxide 22.2 mmol/L (21.0-32.0); Chloride 104 mmol/L (98-108); Globulin 3.0 g/dL (2.2-4.2); Glucose 211 mg/dL (70-99); Potassium 4.6 mmol/L (3.3-5.1)
[2025-09-30 13:03] LABS: Cholesterol 154 mg/dL (<=200); Low Density Lipoprotein Calc. 71 mg/dL; Triglycerides 251 mg/dL; Very Low Density Lipoprotein 50 mg/dL (5-40); cholesterol:hdl ratio screen 3.67
== END | disposition home or self-care (01) ==
LOC: LAB 08:19
PROVIDERS: PCP Family Medicine; Referring Provider Nurse Practitioner Family; Visit Provider Nurse Practitioner Family
DX: E78.2 Mixed hyperlipidemia (principal); E11.9 Type 2 diabetes mellitus without complications; Z79.4 Long term (current) use of insulin; R06.09 Other forms of dyspnea; Z95.1 Presence of aortocoronary bypass graft; I10 Essential (primary) hypertension; E66.811 Obesity, class 1; Z68.33 Body mass index [BMI] 33.0-33.9, adult
CPT/HCPCS: 36415; 80048; 80061; 80076; 83036; 83735; 83880; 85025

== ENCOUNTER → 2025-10-23 | Outpatient (CLI) | payer MEDICARE, OTHER, SELFPAY ==
[2024-11-10 09:30] VITALS: BMI 33.2
--- NOTE | 2025-10-23 09:46 | ECHOCS_ITS ---
Reason For Study Reason For Study: Valve Replacement Eval Procedure This was a 2D Doppler, Color Flow transthoracic echocardiogram. The patient is in sinus rhythm. The study was technically difficult. Contrast injection was performed. Exam performed in department. Left Ventricle Normal-sized left ventricle. Normal left ventricular wall thickness. Left ventricular EF by Maciel's biplane: 48%. Diastolic dysfunction grade indeterminate. Abnormal septal motion consistent with post-cardiac surgery. Inferior wall hypokinesis present. Right Ventricle Normal right ventricle. Normal systolic function. RVSP estimated at: 35 to 40 mmHg. Atria The left and right atria are normal. Mitral Valve Normal mitral valve. No mitral stenosis. Mild mitral regurgitation. Tricuspid Valve Normal tricuspid valve. No tricuspid stenosis. Mild tricuspid regurgitation. Aortic Valve #25 Rodriguez prosthetic valve present. Valve appears to open normally. It is well-seated. DVI: 0.52, EOA: 1.5 cm2, mean gradient: 13.6 mmHg. Gradients are normal for this prosthetic valve. Pulmonic Valve Normal pulmonic valve. Trace pulmonic regurgitation. No pulmonic stenosis. Great Vessels Normal sized aortic root. Normal ascending aorta. Pericardium/Pleural No pericardial effusion. Medication 22 gauge I.V. with prn adaptor inserted into left arm. Diluted definity 1.5ml given slow IV push to enhance endocardial definition. MMode/2D Measurements & Calculations LVIDd: 5.0 cm IVSd: 0.96 cm LVOT diam: 2.0 cm LVIDs: 3.7 cm LVPWd: 1.1 cm RVDd: 3.4 cm FS: 25.0 % LVOT area: 3.1 cm2 Ao root diam: 3.5 cm LAV(MOD-bp): 39.2 ml LVAd ap4: 32.6 cm2 LAV(MOD-bp) Indexed: 18.7 ml/m2 LVLd ap4: 8.1 cm LAV(MOD-sp2): 31.5 ml EDV(MOD-sp4): 107.4 ml LAV(MOD-sp4): 38.6 ml EDV(sp4-el): 111.8 ml LVAs ap4: 22.0 cm2 LVLs ap4: 7.4 cm ESV(MOD-sp4): 53.9 ml ESV(sp4-el): 55.7 ml EF(MOD-sp4): 49.9 % EF(sp4-el): 50.2 % LVAd ap2: 32.7 cm2 SV(MOD-sp4): 53.6 ml LVLd ap2: 7.8 cm EDV(MOD-bp): 108.2 ml SI(MOD-sp4): 25.6 ml/m2 EDV(MOD-sp2): 108.0 ml ESV(MOD-bp): 56.3 ml EDV(sp2-el): 116.7 ml EF(MOD-bp): 48.0 % LVAs ap2: 23.1 cm2 LVLs ap2: 7.2 cm ESV(MOD-sp2): 59.2 ml ESV(sp2-el): 62.7 ml EF(MOD-sp2): 45.2 % SV(MOD-sp2): 48.8 ml SV(sp4-el): 56.1 ml LA A4 area: 16.1 cm2 SI(MOD-sp2): 23.3 ml/m2 LA dimension(2D): 4.1 cm RA A4 area: 12.9 cm2 Time Measurements MV dec time: 0.21 sec Doppler Measurements & Calculations MV E max ian: 99.1 cm/sec Lat Peak E' Ian: 15.7 cm/sec Med Peak E' Ian: 4.1 cm/sec MV A max ian: 103.5 cm/sec E/E' lat: 6.3 E/E' med: 24.0 MV E/A: 0.96 MV V2 max: 128.8 cm/sec MV P1/2t max ian: 130.1 cm/sec Ao V2 max: 247.9 cm/sec MV max P.6 mmHg MV P1/2t: 86.3 msec Ao max P.6 mmHg MV V2 mean: 64.8 cm/sec Ao V2 mean: 173.8 cm/sec MV mean P.1 mmHg MV dec slope: 441.7 cm/sec2 Ao mean P.8 mmHg MV V2 VTI: 43.5 cm MVA(P1/2t): 2.6 cm2 Ao V2 VTI: 54.5 cm AV (velocity ratio): 0.52 MVA(VTI): 2.0 cm2 OSEAS(I,D): 1.6 cm2 OSEAS(V,D): 1.6 cm2 LV V1 max: 125.1 cm/sec SV(LVOT): 88.7 ml PA V2 max: 132.8 cm/sec LV V1 max P.3 mmHg LV V1 mean P.9 mmHg LV V1 mean: 95.7 cm/sec LV V1 VTI: 28.5 cm TR max ain: 264.0 cm/sec TR max P.9 mmHg ECHO/Echo Complete W/ Contrast Interpretation Summary Mildly reduced left ventricular systolic function, with EF: 48% by Maciel's bi plane. Normal RV systolic function Normally functioning aortic prosthetic valve (#25 Rodriguez) No other hemodynamically significant valvular disease. Ordering Physician: Alissa Skaggs Referring Physician: Alissa Skaggs Performed By: Nathanael Salazar RCS
== END | disposition home or self-care (01) ==
LOC: CVS 09:44
PROVIDERS: PCP Family Medicine; Referring Provider Nurse Practitioner Gerontology; Visit Provider Nurse Practitioner Gerontology
DX: Z95.3 Presence of xenogenic heart valve (principal)
CPT/HCPCS: 93306; Q9957; A4216; C8929